=== PATIENT | female | born 1945 | race Caucasian/White ===

== ENCOUNTER → 2023-08-10 13:07 | Outpatient (BNVA) | payer OTHER, SELFPAY | PROVIDERS: PCP Internal Medicine; Visit Provider Psychiatry & Neurology Neurology ==

== ENCOUNTER 2023-12-01 12:22 | Outpatient (AMB) | payer OTHER, SELFPAY ==
--- NOTE | 2023-12-01 12:27 | A.OFFVIS_ITS ---
Vital Signs 12/01/23 12:30 Height 5 ft 7 in Weight 187 lb 8 oz BMI 29.4 BP 130/80 Blood Pressure Location Rt brachial Position Sitting Pulse 65 Pulse Source Pulse Oximeter Pulse Oximetry (%) 96 Oxygen Delivery Method Room Air Intake Visit Reasons: 3m follow up - LVM w/add Intake Note: Patient presents today for a 3 mo fu for cognitive and neurobehavioral dysfunction. Admitting Supervisor Required: No Accompanied by: Significant Other Allergies No Known Allergies Allergy (Verified 12/01/23 12:44) Medication List - Last Reconciled 12/01/23 by Brissa Avelar MD acetaminophen (Tylenol Extra Strength) 500 mg PO Q6H PRN albuterol sulfate 90 mcg/actuation 2 puffs inhalation Q6H PRN ammonium lactate 12% 1 appl topical BID cetirizine (All Day Allergy (cetirizine)) 10 mg PO DAILY PRN fluticasone furoate 50 mcg/actuation inhalation gabapentin 200 mg PO BEDTIME hydralazine 30 mg PO BID lidocaine 1.8% 1 patch topical DAILY metoprolol succinate ER 25 mg PO DAILY HPI Comments Details: 78y/o female with 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 EMG was normal gabapentin is helping her sleep No falls History- In 2006 - she was in ICU after a fall related to alcoholism - found to have mulitple bleeds ? and cognitive issues since then . she says her cogntion is better now. SHe has difficulty remembering her 2006 admission details. she uses a walker - no falls . she reports numbness in michael feet and hands for a few years now.she has stress incontinence intermittently she has some back pain but no radiating pain she comes alone for appointment today so history was not detailed.she live sin an Assisted Living facility at [place]. she neeeds help shower etc. she reports trouble falling asleep and staying asleep. she is not sure if she snores . she takes occasional naps during daytime. she was diagnosed with sleep apnea many years ago but could not use her CPAP. 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 Mother No problems noted. Social History Household Members: Other Housing: Assisted Living Facility Alcohol intake: former Comment: Heavy drinker in the past- hasn't had a drink since 2008 Patient Tobacco Use Status: Former Tobacco user Years Smoked: Quit in 2008 after 10 years of smoking Physical Exam Vital Signs: Last Vital Signs Pulse 65 12/01/23 12:30 BP 130/80 12/01/23 12:30 Pulse Ox 96 12/01/23 12:30 Oxygen Delivery Method Room Air 12/01/23 12:30 BMI result Body Mass Index 29.4 Const General: cooperative, healthy appearing and comfortable Nutritional Appearance: average body habitus Orientation/consciousness: patient oriented x3 Eyes Pupils: Equal, round and reactive pupils present Neuro Other: Mild slurred speech Gait - with walker- normal base and posture, good stride , mild off balance Mild dysesthesias in distal LE General: patient oriented x3, tone normal, moves all extremities and no focal motor deficits Cranial nerves: Yes Facial sensation intact/muscles of mastication intact, Yes Equal, round and reactive pupils present, Yes Bilaterally intact EOM present, Yes Nystagmus not present, Yes Normal facial strength present, Yes Midline tongue present and Yes Symmetric palate elevation present Cognition (Neuro): normal cognition Motor exam (neuro): 5/5 motor strength present throughout and Normal motor mu scle tone present throughout Coordination: [id number] test normal Results Reviewed Results Reviewed: MRI Brain 09/22/23 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
[2023-12-01 12:30] VITALS: BP 130/80; PULSE 65; O2SAT 96; BMI 29.4
== END 2023-12-01 13:06 | disposition home or self-care (01) ==
PROVIDERS: Absent Provider Psychiatry & Neurology Neurology; PCP Internal Medicine; Visit Provider Psychiatry & Neurology Neurology
DX: G31.2 Degeneration of nervous system due to alcohol (principal); F09 Unspecified mental disorder due to known physiological condition; F10.21 Alcohol dependence, in remission; S06.9XAS Unspecified intracranial injury with loss of consciousness status unknown, sequela; R20.0 Anesthesia of skin; R20.2 Paresthesia of skin
CPT/HCPCS: 99214

== ENCOUNTER → 2023-12-01 12:22 | Outpatient (BNVA) | payer OTHER, SELFPAY | PROVIDERS: Absent Provider Psychiatry & Neurology Neurology; PCP Internal Medicine; Visit Provider Psychiatry & Neurology Neurology | DX: G31.89 Other specified degenerative diseases of nervous system (principal); F09 Unspecified mental disorder due to known physiological condition; S06.9XAS Unspecified intracranial injury with loss of consciousness status unknown, sequela; F10.20 Alcohol dependence, uncomplicated; R26.9 Unspecified abnormalities of gait and mobility; R20.0 Anesthesia of skin; R20.2 Paresthesia of skin ==

== ENCOUNTER 2024-06-14 10:13 | Outpatient (AMB) | payer OTHER, SELFPAY ==
--- NOTE | 2024-06-14 10:19 | MHC.OFFVIS ---
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 Falls, Last week R. shoulder, hit her nightstand and fell to the floor couldn't get up and care takers at [place] helped her up, she did not hit her head. 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 EMG was normal Gabapentin is helping her sleep 300mg PO at bedtime will increase to 400mg for leg pain and help regulate sleep History- In 2006 - she was in ICU after a fall related to alcoholism - found to have mulitple bleeds ? and cognitive issues since then . she says her cogntion is better now. SHe has difficulty remembering her 2007 admission details. she uses a walker. she reports numbness in michael feet and hands for a few years now. she has stress incontinence intermittently she has some back pain but no radiating pain she comes alone for appointment today so history was not detailed. she lives in an Assisted Living facility at [place]. she neeeds help shower etc. she reports trouble falling asleep and staying asleep. she is not sure if she snores . she takes occasional naps during daytime. she was diagnosed with sleep apnea many years ago but could not use her CPAP. 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 Mother No problems noted. Social History Household Members: Other Housing: Assisted Living Facility Alcohol intake: former Comment: Heavy drinker in the past- hasn't had a drink since 2009 Patient Tobacco Use Status: Former Tobacco user Years Smoked: Quit in 2009 after 10 years of smoking Review of Systems Const All systems reviewed & are unremarkable except as noted in HPI and below Physical Exam Vital Signs: Last Vital Signs BP 138/80 06/14/24 10:20 BMI result Body Mass Index 30.7 Const General: cooperative, healthy appearing and comfortable Nutritional Appearance: average body habitus Orientation/consciousness: patient oriented x3 Eyes Pupils: Equal, round and reactive pupils present Neuro Other: Mild slurred speech Gait - with walker- normal base and posture, good stride , mild off balance Mild dysesthesias in distal LE General: patient oriented x3, tone normal, moves all extremities and no focal motor deficits Cranial nerves: Yes Facial sensation intact/muscles of mastication intact, Yes Equal, round and reactive pupils present, Yes Bilaterally intact EOM present, Yes Nystagmus not present, Yes Normal facial strength present, Yes Midline tongue present and Yes Symmetric palate elevation present Cognition (Neuro): normal cognition Motor exam (neuro): 5/5 motor strength present throughout and Normal motor muscle tone present throughout Coordination: [id number] test normal Results Reviewed Results Reviewed: MRI NCS Meds : Add Amlodipine 5mg daily Add Chlorthalidone 10mg PO daily Assessment & Plan Assessment & Plan (1) Gait disorder, alcoholic: Code(s): F10.20 - Alcohol dependence, uncomplicated; R26.9 - Unspecified abnormalities of gait and mobility Category: Medical (2) Numbness and tingling of both feet: Comment: ? 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 EMG NCS /LE - normal Increase Gabapentin 300mg to 600mg PO at bedtime daily restless legs and insomnia to help with regulation of sleep. Ask member of her care team at [place] to help with application of RL cream onto her feet as she has difficulty applying it topically. Back pain she uses [place] balm. 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
[2024-06-14 10:20] VITALS: BP 138/80; BMI 30.7
== END 2024-06-14 11:40 | disposition home or self-care (01) ==
PROVIDERS: PCP Internal Medicine; Visit Provider Physician Assistant Medical
DX: F10.288 Alcohol dependence with other alcohol-induced disorder (principal); R26.0 Ataxic gait; S06.9XAS Unspecified intracranial injury with loss of consciousness status unknown, sequela; F06.71 Mild neurocognitive disorder due to known physiological condition with behavioral disturbance; G31.9 Degenerative disease of nervous system, unspecified; F09 Unspecified mental disorder due to known physiological condition; R20.2 Paresthesia of skin; R20.0 Anesthesia of skin; G47.9 Sleep disorder, unspecified
CPT/HCPCS: 99214

== ENCOUNTER → 2024-06-14 10:13 | Outpatient (BNVA) | payer OTHER, SELFPAY | PROVIDERS: PCP Internal Medicine; Visit Provider Physician Assistant Medical ==

== ENCOUNTER 2024-10-18 09:41 | Outpatient (AMB) | payer OTHER, SELFPAY ==
[2024-10-18 09:45] VITALS: BP 128/70; PULSE 70; O2SAT 96; BMI 30.4
--- NOTE | 2024-10-18 09:45 | A.OFFVIS_ITS ---
Vital Signs 10/18/24 09:45 Height 5 ft 7 in Weight 194 lb 4 oz BMI 30.4 BP 128/70 Blood Pressure Location Lt brachial Pulse 70 Pulse Source Pulse Oximeter Pulse Oximetry (%) 96 Oxygen Delivery Method Room Air Intake Visit Reasons: 4 mnts f/u appt - Confirmed Intake Note: patient presents follow up numbness med trial gabapentin. Allergies No Known Allergies Allergy (Verified 10/18/24 09:53) HPI Comments Details: 79 yo female with TBI in 2006 repeated falls, and Ataxia comes for follow up of bilateral LE Neuropathy along with intermittent sleep patterns. She continues to have multiple awakenings at night, most nights she is up at 3am and unable to fall back asleep. Her legs are still bothering her bilaterally, she is unable to apply the lotion on her feet as she can not reach them. She has PT/OT 2x per week. She says her back surgery is pending consultation, and her cognition is worse as she is all over the place and is terrible . No falls since last visit, she ambulates with a rolling walker, is socially active going to [employer] [facility] 2-3pm and does her puzzles daily. She has difficulty with swallowing, she only eats soft foods due to having only top dentures, and 2 molars bottom left, unable to chew any solids, unable to swallow pills, they get stuck despite trying to drink her 20 ounces of lemonade daily. She has diarrhea daily for the past 2 years, and she takes immodium as needed. She has a f/u for the dentist and [facility] [employer] provides transportation. MRi brain 2023- 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 EMG 11/2023 was normal LE no evidence of Neuropathy. History- In 2006 - she was in ICU after a fall related to alcoholism - found to have mulitple bleeds and cognitive issues since then . she says her cognition is better now. SHe has difficulty remembering her 2007 admission details. she uses a walker. she reports numbness in michael feet and hands for a few years now. she has stress incontinence intermittently she has some back pain but no radiating pain she comes alone for appointment today so history was not detailed. she lives in an Assisted Living facility at [facility]. she neeeds help shower etc. she reports trouble falling asleep and staying asleep. she is not sure if she snores . she takes occasional naps during daytime. she was diagnosed with sleep apnea many years ago but could not use her CPAP. 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 Mother No problems noted. Social History Household Members: Other Housing: Assisted Living Facility Alcohol intake: former Comment: Heavy drinker in the past- hasn't had a drink since 2009 Patient Tobacco Use Status: Former Tobacco user Years Smoked: Quit in 2008 after 10 years of smoking Review of Systems Neuro Reports Abnormal speech present Physical Exam Vital Signs: Last Vital Signs Pulse 70 10/18/24 09:45 BP 128/70 10/18/24 09:45 Pulse Ox 96 10/18/24 09:45 Oxygen Delivery Method Room Air 10/18/24 09:45 BMI result Body Mass Index 30.4 Const General: cooperative, healthy appearing and comfortable Nutritional Appearance: average body habitus Orientation/consciousness: patient oriented x3 Eyes Pupils: Equal, round and reactive pupils present Neuro Other: Mild slurred speech - Gait ambulates with walker, normal base stopped posture, good stride , mildly off balance Mild dysesthesias in distal LE Abnormal Oral/ mouth tongue movements noted / due to being edentulous? General: patient oriented x3, tone normal, moves all extremities and no focal motor deficits Cranial nerves: Yes Facial sensation intact/muscles of mastication intact, Yes Equal, round and reactive pupils present, Yes Bilaterally intact EOM present, Yes Nystagmus not present, Yes Normal facial strength present, Yes Midline tongue present and Yes Symmetric palate elevation present Speech: Abnormal speech present and Other speech findings present (Neuro) (slurs her words and is a poor historian) Gait exam (Neuro): Assisted gait required Motor exam (neuro): Normal motor muscle tone present throughout and Abnormal motor strength present Psych Appearance: well kempt Speech and movement: Slurred speech present Attitude: cooperative Insight: Fair insight present (Psych) Results Reviewed Results Reviewed: EMG 09/2023 reviewed with patient MRI 11/2023 Reviewed with patient Vermian Atrophy due to AUD/ TBI? Assessment & Plan Assessment & Plan (1) Sleep disorder: Comment: insomnia worsened by leg tingling Code(s): G47.9 - Sleep disorder, unspecified Category: Medical (2) Intermittent sleepiness: Code(s): R40.0 - Somnolence Category: Medical (3) Forgetfulness: Code(s): R68.89 - Other general symptoms and signs Category: Medical (4) Cognitive decline: Code(s): R41.89 - Other symptoms and signs involving cognitive functions and awareness Category: Medical (5) Dysphagia: Code(s): R13.10 - Dysphagia, unspecified Category: Medical Qualifiers: Dysphagia type: oral phase Qualified Code(s): R13.11 - Dysphagia, oral phase Plan HST Sleep difficulities and continued intermittent sleep. Continue with Melatonin 10mg PO at night and Trazadone 25mg PO at bedtime (PRN). Dysphagia, f/u with your dentist for dentures, eating liquids and soft foods and drinking plenty of water or lemonade may help with swallowing the foods and medications. Neuropathy? RLS/ PLMD EMG is normal and stills has discomfort LE bilaterally continue using Nervine or OTC cream as needed along with Gabapentin 600mg at bedtime. Neuropsyche Evaluation cognitive difficulties. f/u in 4 months Orders: Orders RT home sleep study Today G47.19 - Other hypersomnia Referrals Neuropsychiatry Referral G47.9 - Sleep disorder, unspecified, R40.0 - Somnolence, R41.89 - Other symptoms and signs involving cognitive functions and awareness, R68.89 - Other general symptoms and signs Patient Instructions: Sleep Hygiene provided: set a scheduled bedtime and wake time to help regulate the circadian rhythm and balance the release of pituitary hormones. Sleep in a dark room, temperatures below 68 degrees, and no devices n bed. Limit caffeinated products 6 hours prior to bed, and limit fluids 2-4 hours prior to bed. Gentle night yoga, diffusing essential oils, and playing soft music can be relaxing. Sleep intermittent, increased Melatonin to 10mg PO daily at bedtime, Trazadone PRN and Gabapentin 300mg BID for RLS? PLMD? Neuropathy. OT/PT at [facility] is her therapist 2x a week or more. Neuropscyhe Evaluation for Cognitive Difficulties - poor historian Dentist f/u for dentures. Coding Level of Care Code Est Pt Level 4 (32823) Diagnoses Sleep disorder G47.9 Intermittent sleepiness R40.0 Forgetfulness R68.89 Cognitive decline R41.89 Oral phase dysphagia R13.11 Dysphagia type: oral phase Time Spent (min) 30 Comment Baseline evaluation of sleep
--- OUTSIDE RECORDS SUMMARY | 2024-10-18 10:49 | XMS_ITS | Data Portability ---
Author Organization [place] - [facility], Allergy Address [address] [address] Assessment No assessment recorded. Plan of Treatment Reminders Order Date Submit Date Provider Last Modified By Organization Details Last Modified Time Details Appointments None record ed. Lab None record ed. Referral None record ed. Procedures None record ed. Surgeries None record ed. Imaging None record ed. Medication Orders None record ed. Patient TargetsNo targets recorded. Patient InstructionsNo instructions recorded. Reason for Referral None Reported. Results Created Date Observation Date Name Description Value Unit Range Abnormal Flag Note LastModifiedBy Organization Detail LastModifiedTime 02/23/20 24 05/12/2023 imagi ng/di agnos tic resul t No observ ation record ed. [email or web address] Not Available 20:03:06 02/23/20 24 05/12/2023 imagi ng/di agnos tic resul t No observ ation record ed. [email or web address] Not Available 20:03:16 Result Notes None recorded. Problems Name Problem SNOMED Code Status Onset Date Resolution Date Notes Provider Name and Address Organization Details Recorded Time Sensorine ural hearing loss of bilateral ears 300835301 Active 2022 Sensorineu ral hearing loss, bilateral; Note: Date Diagnosed: 05/12/2023 3:19 PM (H90.3) Not Available [facility] 4 03:17:22 Dysphonia 79547667 Active 2022 Hoarseness ; Note: Date Diagnosed: 05/12/2023 3:19 PM (R49.0) Not Available [facility] 4 03:17:23 Actinic keratosis 148841081 Active 2022 Actinic keratosis; Note: Date Diagnosed: 05/12/2023 3:19 PM (L57.0) Not Available [facility] 4 03:17:23 Complete bilateral paralysis of vocal cords 95026093 Active 2023 Paralysis of vocal cords and larynx, bilateral; Note: Date Diagnosed: 08/13/2023 12:03 PM (J38.02) Not Available [facility] 4 03:17:23 Vocal cord paralysis 664565629 Active 2023 VERONICA SPARKS MD [address] [facility],[place] [address], [place], [address] , [facility] 14:03:24 Problem Notes None recorded. Procedures Surgical History Date Name Laterality Status Provider Name and Address Organization Details Recorded Time 02/07/20 Fiberoptic Laryngoscopy (Comprehensive) completed VERONICA SPARKS MD [address] [facility],[place] [address], [place], [address], [facility] 02/11/2024 14:05:01 Imaging Results Imaging Date Name Status LastModified by Organiz ation Details LastModified Time 05/12/2023 imaging/diag nostic result completed Information not available 02/23/2024 20:03:06 05/12/2023 imaging/diag nostic result completed Information not available 02/23/2024 20:03:16 Procedure Notes None recorded. Medical Equipment None Reported. Allergies Allergen ID Allergen Name Allergen Category Reaction Reaction Severity Criticality Documentation Date Start Date Code Code System Note Provider Name and Address Organization Details Recorded Time 048269 watermelo n preparati on food,medi cation other Not available Not available 11/16/2023 76738 4 RxNorm React ion: Unkno wn; Not Available [facility] 01:24:25 Medications Name Sig Start Date Stop Date Status Note LastModified by Organization Details LastModified Time hydralazine 10 mg tablet Take 1 tablet twice a day by oral route. active Not Available Not Available No t Available gabapentin 100 mg capsule Take 1 capsule 3 times a day by oral route. active Not Available Not Available No t Available Flonase Allergy Relief 50 mcg/actuatio n nasal spray,suspen kay Oracle 1 spray every day by intranasal route. active Not Available Not Available No t Available metoprolol succinate ER 25 mg capsule sprinkle, ext. release 24 hr Take 1 capsule every day by oral route. active Not Available Not Available No t Available albuterol sulf 90 mcg/actuatio n breath activated powder inhaler,sens or Inhale 2 puffs every 4 hours by inhalation route. active Not Available Not Available No t Available Vitals Date Recorded Body height Body mass index (BMI) Body weight Provider Name and Address Organization Details Last Updated DateTime 02/07/2024 170.18 cm 43.9 kg/m2 604580.86 g Ruby Moore [place] - [facility] 02/07/2024 10:51:18 Social History None recorded. Functional Status None recorded. Mental Status None recorded. Family History Nothing Reported. Medical History No medical history recorded. Gynecological HistoryNo gynecological history recorded. Obstetrics History GPAL:G 0 P 0 0 0 0 Past Encounters Encounter ID Performer Location Encounter Start Date Encounter Closed Date Diagnosis/Indication Diagnosis SNOMED-CT Code Diagnosis ICD10 Code Diagnosis Note [id number] VERONICA SPARKS MD [facility] [address] [address] 02/07/2024 10:43:24 02/07/2024 11:08:58 Vocal cord paralysis 705349970 J38.02 78-year-ol d female presents for evaluation of hoarseness . History of bilateral vocal cord paralysis following craniotomy back in 2006. History of trach. Fiber-opti claryngosc opy demonstrat ed bilateral vocal cord paralysis with 3-4 mm airway, no shortness of breath. We will continue to observe. She will follow up in 12 months for repeat FOL, or sooner with concerns. Health Concerns Section Related Observation LastModified by Organization Detai ls LastModified Time None Recorded Concern Status LastModified by Organization Details LastModified Time None Recorded Advance Directives Directive None Recorded Payers Encounter Date Sequence Insurance Name Policy Number Policy Platt Covered Member ID Platt Member ID Guarantor Name 02/07/2024 1 [facility] - [place] - [place] (MEDICARE REPLACEMENT/ ADVANTAGE - HMO) [id number] Notes Date Note Type Note Provider Name and Address Organization Details Recorded Time 02/07/2024 text/html No changes in he alth since her last visit. Now has CLAIRE. PV: 78-year-old female presents for evaluation of hoarseness. She has history of bilateral vocal cord paralysis following craniotomyback in 2006. Had trach and G tube at that time. Patient continues to have long-standing hoarseness. She denies dysphagia or choking episodes.Denies shortness of breath. VERONICA SPARKS MD [address] [place] [address], [phone] - [facility] 02/11/2024 14:05:15 OBGyn Episode No OBEpisode recorded.
--- OUTSIDE RECORDS SUMMARY | 2024-10-18 10:49 | XMS_ITS | Clinical Summary ---
Author Organization [employer] Address [address] [place] [address] [address] [place] [address] Care Team Providers Care Director Of Nursing Name Role Phone Unavailable Primary Care Provider Unavailabl e Allergies Active Allergy Reactions Criticality Noted Date Comments Citrullus Vulgaris Diarrhea 05/02/2024 Medications metoprolol tartrate (Lopressor) 25 MG tablet 3 Active cetirizine (ZyrTEC) 10 MG tablet 3 Active gabapentin (Neurontin) 100 MG capsule Take by mouth. Acti ve hydrALAZINE (Apresoline) 10 MG tablet Take by mouth. Activ e Albuterol Sulfate, sensor, 108 (90 Base) MCG/ACT aerosol powder Inhale 2 puffs every 4 hours by inhalation route. Active simvastatin (Zocor) 40 MG tablet Take 40 mg by mouth. 4 Active Active Problems No known active problems Encounters Date Type Department Care Team Description 09/19/2024 11:30 AM EDT Office Visit [facility] ADULT D[facility] [address] [place] [address] Berenice Anderson from Last 3 Months Social History Tobacco Use Types Packs/Day Years Used Date Smoking Tobacco: Former Cigarettes Smokeless Tobacco: Never Tobacco Cessation:Counseling Given: Not Answered Alcohol Use Standard Drinks/Week Comments Defer 0 (1 standard drink = 0.6 oz pur e alcohol) Comments Unknown Sex and Gender Information Value Date Recorded Sex Assigned at Female 10/25/2023 2:28 PM EDT Legal Sex Female 2:26 PM EDT Gender Identity Female 10/25/2023 2:28 PM EDT Sexual Orientation Straight 10/25/2023 2: 28 PM EDT Last Filed Vital Signs Vital Sign Reading Time Taken Comments Blood Pressure 130/86 05/02/2024 10:43 AM EDT Pulse 60 05/02/2024 10:43 AM EDT Temperature - - Respiratory Rate - - Oxygen Saturation - - Inhaled Oxygen Concentration - - Weight - - Height - - Body Mass Index - - Plan of Treatment Upcoming Encounters Date Type Department Care Team ([facility] st Contact Info) Description 11/15/2024 9:30 AM EDT Office Visit [facility] ADULT DENTAL [address] [place] [address] Nathen Mello, DMD [address] [place] [address] Health Maintenance Due Date Last Done Comments Dental Oral Exam 1945 Dental Prophylaxis 1945 Dental X-Ray: Bitewings 1945 Depression Screening 1945 Lipid Panel 1945 SDOH Screening 1945 Alcohol/Substance Use Screening 1957 Hepatitis C Screening 1963 Zoster Vaccines (1 of 2) 1995 DTaP/Tdap/Td Vaccines (1 - Tdap) 05/24/2018 05/23/2018, 02/07/2007, 02/07/2007 RSV Patients and Patients Aged 60 years or older (1 - 1-dose 75+ series) 2020 COVID-19 Vaccine (2 - season) 2024 07/20/2020 Tobacco Screening 09/19/2025 09/19/2024 Dental X-Ray: Full Mouth 11/26/2026 11/26/2023 Pneumococcal Vaccine: 50+ Years Completed 12/15/2023, 11/15/2017, 08/10/2016 Influenza Vaccine Completed 05/12/2024, , 05/06/2022, Additional history exists HIB Vaccines Aged Out No longer eligi ble based on patient's age to complete this topic HPV Vaccines Aged Out No longer eligi ble based on patient's age to complete this topic Hepatitis A Vaccines Aged Out No long er eligible based on patient's age to complete this topic Hepatitis B Vaccines Aged Out No long er eligible based on patient's age to complete this topic IPV Vaccines Aged Out No longer eligi ble based on patient's age to complete this topic Meningococcal Vaccine Aged Out No tawanna luiz eligible based on patient's age to complete this topic RSV under 20 months Aged Out No longe r eligible based on patient's age to complete this topic Rotavirus Vaccines Aged Out No longer eligible based on patient's age to complete this topic Procedures Procedure Name Priority Date/Time Associated Diagnosis Comments LIMITED ORAL EVALUATION - PROBLEM FOCUSED Routine 09/19/2024 11:30 AM EDT PANORAMIC RADIOGRAPHIC IMAGE Routine 11/26/2023 11:00 AM EDT from Last 3 Months or Most Recently Relevant to Health Maintenance Insurance DENTAL - [facility] [place] [id number]
--- OUTSIDE RECORDS SUMMARY | 2024-10-18 10:49 | XMS_ITS | Continuity of Care Document ---
Author Organization [place] - [facility], DAISY Michelle 1st Floor Address [address] [place] [address] Assessment No assessment recorded. Plan of Treatment Reminders Order Date Submit Date Provider Last Modified By Organization Details Last Modified Time Details Appointments NEW PATIENT 15 2024 09:45A M Xuan Trotter, AUREA Not available Not available Not available Lab None recorded . Referral None recorded . Procedures None recorded . Surgeries None recorded . Imaging XR, hip + pelvis, bilatera l, 2 view - OG HIPS RM 114 2024 025 [email or web address] [facility] Office, [facility] Maykel Foyjeremy, [address], [address], 10/17/2024 13:53:12 Medication Orders None recorded . Patient TargetsNo targets recorded. Patient InstructionsNo instructions recorded. Reason for Referral None Reported. Results Created Date Observation Date Name Description Value Unit Range Abnormal Flag Note LastModifiedBy Organization Detail LastModifiedTime 10/18/1910/17/2024 XR, hip + pelvi s, bilat eral, 2 view http:/ [email or web address] ?Encry pted=s hAaTro YD8dLq bEUv6g %2BXZw aYqtaq 0bqfl% 2Fg9IQ a4ajBk vP9nXo QUaueC m3YtLR FvZlgJ JJ8mAn HZtai3 6q6299 AC0KqY 3uNVqq iKiQtr MwF INTERFACE [facility] [address], [place], [address], 10/17/2024 09:59:10 10/18/1910/17/2024 XR, hip + pelvi s, bilat eral, 2 view http:/ [email or web address] ?Encry pted=s Julien YD8dLq bEUv6g %2BXZw aYqtaq 0bqfl% 2Fg9IQ a4ajBk vP9nXo QUaueC m3YtLR FvZlgJ JJ8mAn HZtai3 4q1423 AC0KqY 3uNVqq iKiQtr MwF INTERFACE [facility] [address], [place], [address], 10/17/2024 09:59:12 Result Notes None recorded. Problems Name Problem SNOMED Code Status Onset Date Resolution Date Notes Provider Name and Address Organization Details Recorded Time Hip pain 01671763 Active 10/18/19 25 Analisa Bermudez [facility] 10/17/2024 09:48:45 Problem Notes None recorded. Procedures Surgical History Date Name Laterality Status Provider Name and Address Organization Details Recorded Time 10/17/2024 [facility] completed Flex Zaldivar PA-C [address] [facility], [place], [address], [facility] 10/17/2024 12:32:05 07/18/2024 [facility] completed Flex Zaldivar PA-C [address] [facility], [place], [address], [facility] 07/18/2024 10:49:01 02/18/2024 [facility] completed Flex Zaldivar PA-C [address] [facility], [place], [address], [facility] 02/18/2024 13:43:23 Imaging Results None recorded. Procedure Notes None recorded. Medical Equipment None Reported. Allergies No known drug allergies Vitals Date Recorded Body height Body mass index (BMI) Body weight Provider Name and Address Organization Details Last Updated DateTime 10/17/2024 170.18 cm 29.8 kg/m2 58376.55 g Analisa Bermudez [facility] 10/17/2024 09:31:34 Social History None recorded. Functional Status None recorded. Mental Status None recorded. Family History Nothing Reported. Medical History No medical history recorded. Gynecological HistoryNo gynecological history recorded. Obstetrics History GPAL:G 0 P 0 0 0 0 Past Encounters Encounter ID Performer Location Encounter Start Date Encounter Closed Date Diagnosis/Indication Diagnosis SNOMED-CT Code Diagnosis ICD10 Code Diagnosis Note [id number] NALDO Esteves [place] [address] [place] [address] 10/17/2024 09:18:58 10/17/2024 12:33:09 Hip pain 63927621 M25.551 M25.552 Primary co xarthrosis, bilateral 526730552 M16.0 Health Concerns Section Related Observation LastModified by Organization Detai ls LastModified Time None Recorded Concern Status LastModified by Organization Details LastModified Time None Recorded Payers None recorded. Notes Date Note Type Note Provider Name and Address Organization Details Recorded Time 10/17/2024 text/html I am seeing the patient today under the supervision of {{Grace Scott* Effie Mo}} who was available but who did not see the patient. HPI: Patient has a known history of left hip osteoarthritis which has been the worst for her. Has also started developing pain in her right hip. Pain located throughout the groin region in both hips. Has done well in the past with previous intra-articular injection into the left hip. Patient requesting injections for both hips today. Also complaining of mid to low back pain. States that the back pain is what causes her most difficulty. Past family, medical, social history and review of systems has been reviewed, updated and is located in the patient? s chart. Examination: The patient is well appearing and in no apparent distress. Alert and oriented x3. Gait is symmetric. No significant swelling warmth or erythema about both hips. Range of motion of the both hips is decreased in all planes. . Peripheral, vascular, lymphatic examination, skin, neurological, coordination, reflexes, sensation are within normal limits. 2 views of the bilateral hips obtained and independently reviewed in the office today, left hip reveals significant joint space narrowing superiorly with evidence of subchondral sclerosis as well as osteophyte formation. Right hip does have joint space narrowing with osteophyte formation as well as subchondral sclerosis. There is calcification noted over both greater trochanters. No fracture. Impression: Osteoarthritis of both hips Plan: Reviewed diagnosis with the patient today in the office. We discussed the patient's options. We discussed the risks, options, benefits In regards toa total hip arthroplasty. We discussed the surgery itself and rehabilitation process. We discussed conservative management. Activity modification discussed. P.r.n. NSAIDs can use. We discussed the risks associated with NSAID use. I injected 40 mg of Kenalog and 2 cc of 1% lidocaine into the left hip joint using the ultrasound-guided technique under sterile conditions. The patient tolerated the injection well. Patient provided with a follow-up appointment with one of our spine providers. Will continue to monitor her symptoms for her left hip and follow-up as needed for continued injection treatment. Flex Zaldivar PA-C [address] [facility] [address], [place], [address], [facility] - [facility] 10/17/2024 12:33:09 OBGyn Episode No OBEpisode recorded.
--- OUTSIDE RECORDS SUMMARY | 2024-10-18 10:49 | XMS_ITS | Clinical Summary ---
Author Organization [facility] Address [address] [place] [address] Care Team Providers Care Senior Integration Architect Name Role Phone Unavailable Primary Care Provider Unavailabl e Source Comments PLEASE NOTE, if this patient is a minor, it may be UNLAWFUL to discuss sensitive information that is contained in these records (such as FAMILY PLANNING, MENTAL HEALTH or SUBSTANCE ABUSE) with the minor patient's parent or other person without the patient's specific authorization.[facility] Medications No known medications Active Problems No known active problems Social History Tobacco Use Types Packs/Day Years Used Date Smoking Tobacco: Never Assessed Social Connections Answer Date Recorded Connectedness 0 03/19/2024 Financial Resource Strain Answer Date R ecorded Financial Resource Strain 0 2022 Stress Answer Date Recorded Stress 0 05/12/2023 Physical Activity Answer Date Recorded Physical Activity 0 05/12/2023 Food Insecurity Answer Date Recorded Food 0 03/30/2024 Transportation Needs Answer Date Record ed Transportation 0 05/12/2023 Housing Stability Answer Date Recorded Housing 0 05/12/2023 Safety and Environment Answer Date Carl rded Safety 0 05/12/2023 Utilities Answer Date Recorded Utilities 0 05/12/2023 Employment Answer Date Recorded Stress 0 03/19/2024 Comments Unknown Sex and Gender Information Value Date Recorded Sex Assigned at Not on file Legal Sex Female 10:45 AM PDT Gender Identity Not on file Sexual Orientation Not on file Last Filed Vital Signs Vital Sign Reading Time Taken Comments Blood Pressure 151/79 08/26/2023 10:36 AM EST Pulse 64 08/26/2023 10:36 AM EST Temperature - - Respiratory Rate - - Oxygen Saturation - - Inhaled Oxygen Concentration - - Weight - - Height - - Body Mass Index - - Plan of Treatment Health Maintenance Due Date Last Done Comments Dental FMX/Pano 1945 Dental Perio Charting 1945 Dental Prophy 1945 Hepatitis C Screening 1945 Tobacco Screening 1945 Imm-DTaP/Tdap/Td (1 - Tdap) 1964 Imm-Pneumococcal 65+ (1 of 1 - PCV) 1995 Imm-Zoster, Recombinant (1 of 2) 1995 Bone Density Screening 2010 Falls Prevention 2010 Emu-RMZTA-07 (1 - 2023- season) 2024 Imm-Influenza (#1) 2024 Alcohol and Drug Screen 07/05/2024 Depression Annual Screen 07/05/2024 Dental Examination 07/28/2024 07/26/2023 Hypertension Screening (#1) 08/25/2024 Procedures Procedure Name Priority Date/Time Associated Diagnosis Comments COMP ORAL EVALUATION - NEW/ESTABLISHED PATIENT Routine 07/26/2023 11:00 AM EST Caries from Last 3 Months or Most Recently Relevant to Health Maintenance Insurance GENERIC - DENTAL Member Subscriber Plan / Payer (Ef fective 2023-Present) Name:Hannah Lane Member ID:[id number] Relation to Subscriber:Self Name:Hannah Lane Subscriber ID:[id number] Payer ID:[id number] Group ID:Not on file Type:Indemnity Address: [facility] [address] [address] [place] [address]
--- OUTSIDE RECORDS SUMMARY | 2024-10-18 10:49 | XMS_ITS | Clinical Summary ---
Author Organization [facility] Address [address] [place] [address] Care Team Providers Care Hydraulic Jack Operator Name Role Phone Cristian Rivera MD Primary Care Provider [phone] Surgical History Surgery Date Site/Laterality Comments OTHER SURGICAL HISTORY 2008 PROCEDURE: MO STRTCTC IMPLTJ NSTIM ELTRD W/O RECORD 1ST ARRAY; COMMENT: decrompression for traumatic brain injury COLONOSCOPY 10/16/13 PROCEDURE: HISTORICAL COLONOSCOPY; COMMENT: normal; base of cecum not reached; repeat in 5 yrs under propofol Medical History Medical History Date Comments HTN (hypertension) DX:HTN (hyper tension) Depression DX:Depression Hypercholesterolemia DX:Hypercho lesterolemia Osteoporosis DX:Osteoporosis Traumatic brain injury (CMS/ HCC V24, CMS/HCC V28) DX:Traumatic brain injury (H CC); COMMENT: fall from stair, hitting head on concrete, 2008. went through rehab in [place] since. Prediabetes 07/21/2020 DX:Prediabetes; COMMENT: 04/20 A1C 6.1 Family History Medical History Relation Name Comments Other cancer Brother lymphoma, of Hypertension Father Stroke Father Breast cancer Maternal Grandmother Myelodysplastic syndrome Mother Other: no DM Other Relation Name Status Comments Brother Father Other Maternal Grandmother Mother Other Social History Tobacco Use Types Packs/Day Years Used Date Smoking Tobacco: Former Cigarettes Q uit: 06/09/2009 Smokeless Tobacco: Never Alcohol Use Standard Drinks/Week Comments No 0 (1 standard drink = 0.6 oz pur e alcohol) Comments Unknown Sex and Gender Information Value Date Recorded Sex Assigned at Not on file Legal Sex Female 12:16 PM EST Gender Identity Not on file Sexual Orientation Not on file Obstetrics History Last Filed Vital Signs Vital Sign Reading Time Taken Comments Blood Pressure 131/62 01/22/2023 10:26 AM EDT Pulse 66 01/22/2023 10:26 AM EDT Temperature - - Respiratory Rate - - Oxygen Saturation - - Inhaled Oxygen Concentration - - Weight 91.5 kg (201 lb 12.8 oz) 023 10:26 AM EDT Height 170.2 cm (5' 7 ) 01/22/2023 10:2 6 AM EDT Body Mass Index 31.61 01/22/2023 10:26 AM EDT Plan of Treatment Health Maintenance Due Date Last Done Comments Zoster Vaccines (1 of 2) 1995 RSV Immunization Adult Patients (1 - 1-dose 75+ series) 2020 Cholesterol Screening (Lipid Panel) 06/13/2022 Colorectal Cancer Screening: Colonoscopy 06/13/2022 Depression Screening 06/13/2022 Falls Risk Assessment 06/13/2022 Hepatitis C Screening 06/13/2022 Medicare Annual Wellness Visit 06/13/2022 Social Influencers of Health Screening 06/13/2022 Hypertension/CHF/CAD Annual BMP Blood Test 06/14/2022 Osteoporosis Screening (Bone Density Screening) 04/05/2023 04/05/2018 COVID-19 Vaccine ( season) 2024 07/20/2020 Influenza Vaccine (Season Ended) 2025 05/06/2022, 04/17/2021, 04/09/2021, Additional history exists DTaP,Tdap,and Td Vaccines (3 - Td or Tdap) 05/23/2028 05/23/2018, 02/07/2007 Pneumococcal Vaccine: 50+ Years Completed 11/15/2017, 08/10/2016 HIB Vaccines Aged Out No longer eligi [...] on patient's age to complete this topic MMR Vaccines Aged Out No longer eligi ble based on patient's age to complete this topic Meningococcal ACWY Vaccine Aged Out N o longer eligible based on patient's age to complete this topic Meningococcal B Vaccine Aged Out No l onger eligible based on patient's age to complete this topic RSV Immunization Patients Under 20 months Aged Out No longer eligible based on patient's age to complete this topic Varicella Vaccines Aged Out No longer eligible based on patient's age to complete this topic Procedures Procedure Name Priority Date/Time Associated Diagnosis Comments DXA BONE DENSITY STUDY 1+ SITS AXIAL SKEL Routine 04/05/2018 3:05 PM EDT Age-related osteoporosis without current pathological fracture from Last 3 Months or Most Recently Relevant to Health Maintenance Results * DXA BONE DENSITY STUDY 1+ SITS AXIAL SKEL (04/05/2018 3:05 PM EDT) Anatomical Region Laterality Modality Bone Densitometr y 11/15/2017 1:16 PM EDT Narrative 04/05/2018 5:55 PM EDT BONE DENSITY ? Lumbar Spine T-score is +0.9 ?? (SD relative to 20-29 y/o adult) Z-score is +3.3 ??(SD relative to age matched peers) This is normal by criteria defined by the WHO. Left Hip T-score is +0.7 Z-score is +2.4 This is normal by criteria defined by the WHO. Impression: Based on the World Health Organization criteria, Hannah Lane should be classified as having normal bone density. The [facility] Department of Internal Medicine recommends using National Osteoporosis Foundation (NOF) guidelines in treatment decisions related to osteoporosis. NOF guidelines suggest considering treatment for postmenopausal women and men aged 50 or older presenting with the following: History of hip or vertebral fracture. T-score less than or equal to -2.5 (DXA) at the femoral neck, total hip, or spine, after appropriate evaluation to exclude secondary causes. Low bone mass (T-score between -1.0 and -2.5 at the femoral neck or spine) AND a 10-year probability of a hip fracture greater than or equal to 3% OR a 10-year probability of a major osteoporosis-related fracture greater than or equal to 20% based on the [place]-adapted WHO algorithm Please note that all treatment decisions require clinical judgment and consideration of individual patient factors, including patient preferences, co-morbidities, previous drug use, risk factors not captured in the FRAX model (e.g., frailty, falls, vitamin D deficiency, increased bone turnover, interval significant decline in bone density) and possible under- or over-estimation of fracture risk by FRAX. Procedure Note Frieda Sharma MD - 06/23/2022 BONE DENSITY Lumbar Spine T-score is +0.9 (SD relative to 20-29 y/o adult) Z-score is +3.3 (SD relative to age matched peers) This is normal by criteria defined by the WHO. Left Hip T-score is +0.7 Z-score is +2.4 This is normal by criteria defined by the WHO. Impression: Based on the World Health Organization criteria, Hannah [address] should beclassified as having normal bone density. The [facility] Department of Internal Medicine recommendsusing National Osteoporosis Foundation (NOF) guidelines in treatmentdecisions related to osteoporosis. NOF guidelines suggest consideringtreatment for postmenopausal women and men aged 50 or older presentingwith the following: History of hip or vertebral fracture. T-score less than or equal to -2.5 (DXA) at the femoral neck, total hip,or spine, after appropriate evaluation to exclude secondary causes. Low bone mass (T-score between -1.0 and -2.5 at the femoral neck or spine)AND a 10-year probability of a hip fracture greater than or equal to 3% ORa 10-year probability of a major osteoporosis-related fracture greaterthan or equal to 20% based on the [place]-adapted WHO algorithm Please note that all treatment decisions require clinical judgment andconsideration of individual patient factors, including patientpreferences, co-morbidities, previous drug use, risk factors not capturedin the FRAX model (e.g., frailty, falls, vitamin D deficiency, increasedbone turnover, interval significant decline in bone density) and possibleunder- or over-estimation of fracture risk by FRAX. Cleveland Parikh MD IMG DXA PROCEDURES Final Resul t from Last 3 Months or Most Recently Relevant to Health Maintenance Advance Directives Documents on File Type Date Recorded Patient Corrosion Engineer Expl anation Health Care Decision (hx) 05/15/2020 AD MELGOZA DIRECTIVE Health Care Decision (hx) 05/15/2020 AD MELGOZA DIRECTIVE Health Care Decision (hx) 05/15/2020 AD MELGOZA DIRECTIVE Health Care Decision (hx) 05/15/2020 AD MELGOZA DIRECTIVE Health Care Decision (hx) 05/15/2020 AD MELGOZA DIRECTIVE Care Teams Hydraulic Jack Operator Relationship Specialty Start Date End Date Cristian Rivera MD PCP - General Internal Medicine 03/21/21
== END 2024-10-18 10:49 | disposition home or self-care (01) ==
LOC: HO.HSMS 09:41
PROVIDERS: PCP Internal Medicine; Visit Provider Physician Assistant Medical
DX: G47.9 Sleep disorder, unspecified (principal); R40.0 Somnolence; R68.89 Other general symptoms and signs; R41.89 Other symptoms and signs involving cognitive functions and awareness; R13.11 Dysphagia, oral phase
CPT/HCPCS: 99214

== ENCOUNTER → 2024-10-18 09:41 | Outpatient (BNVA) | payer OTHER, SELFPAY | PROVIDERS: PCP Internal Medicine; Visit Provider Physician Assistant Medical ==

== ENCOUNTER 2025-04-09 09:42 | Outpatient (AMB) | payer OTHER, SELFPAY ==
--- OUTSIDE RECORDS SUMMARY | 2025-04-05 12:40 | XMS_ITS | Encounter Summary ---
Author Organization [facility] Address [address] [place] [address] Care Team Providers Care Sex Crimes Detective Name Role Phone Ollie Walter MD Primary Care Provider [phone] Reason for Referral * Imaging (Routine) - Pending Review Specialty Diagnoses / Procedures Referred By Satnam oropeza Referred To Contact Cardiology Diagnoses Atrial fibrillation, unspecified type (CMS/HCC V24, CMS/HCC V28) Procedures Transthoracic echocardiogram (TTE) complete with PRN contrast, bubble, strain, and 3D order panel AK TTE W 2D IMAGE COMPLETE W DOPPLER ECHO & COLOR FLOW DOPPLER ECHO AK LEWIS 2D COMPLETE W/CONTRAST OR W & WO CONTRAST WITH DOPPLER Devorah Tejada NP [address] [place] [address] [address] [place] [address] Phone: tel: fax: [facility] Referral ID Status Reason Start Date Expiration Date V isits Requested Visits Authorized [id number] Pending Review 04/05/2025 04/05/2026 1 1 Reason for Visit * Reason Comments Follow-up * Other Medical (Routine) - Closed Specialty Diagnoses / Procedures Referred By Satnam oropeza Referred To Contact Cardiology Diagnoses [HFU d/c 02/02/25 [facility], Dx: Afib, HTN, consult 01/31/25 w/LC/RAPHAEL, RAPHAEL/LSO pt] [03/14/25..[facility] 03/14/25 because Devorah is in testing...spoke with Pattie at [facility] at [phone]..arie] 02/05/25 bkd w/pt, ltr [facility]ld-[facility] FOLLOW UP Supa Landeros MD [address] [place] [address] Phone: tel: fax: [facility] Cardiology [facility] [address] [place] [address] Phone: tel: fax: Referral ID Status Reason Start Date Expiration Date Visits Re quested Visits Authorized [id number] Closed 03/29/2025 04/12/2025 1 1 Encounter Details Date Type Department Care Team (Late st Contact Info) Description 04/05/2025 12:40 PM EDT [place] [facility] [place] [facility] [address] [place] [address] Devorah Tejada NP [address] [place] [address] [address] [place] [address] Atrial fibrillation, unspecified type (CMS/HCC V24, CMS/HCC V28) (Primary Dx); Hypertension, unspecified type Social History Tobacco Use Types Packs/Day Years Used Date Smoking Tobacco: Former Cigarettes Q uit: 06/09/2009 Smokeless Tobacco: Never Tobacco Cessation:Counseling Given: Not Answered Alcohol Use Standard Drinks/Week Comments No 0 (1 standard drink = 0.6 oz pur e alcohol) Comments Unknown Sex and Gender Information Value Date Recorded Sex Assigned at Not on file Legal Sex Female 12:16 PM EST Gender Identity Not on file Sexual Orientation Not on file documented as of this encounter Last Filed Vital Signs Vital Sign Reading Time Taken Comments Blood Pressure 130/74 04/05/2025 12:56 PM EDT Pulse 58 04/05/2025 12:56 PM EDT Temperature - - Respiratory Rate - - Oxygen Saturation 97% 04/05/2025 12:56 PM EDT Inhaled Oxygen Concentration - - Weight 83.9 kg (185 lb) 04/05/2025 12:56 PM EDT Height 170.2 cm (5' 7 ) 04/05/2025 12:56 PM EDT Body Mass Index 28.98 04/05/2025 12:56 PM EDT documented in this encounter Progress Notes * Devorah Tejada, TEACHER VOCAL - 04/05/2025 12:40 PM EDT Images from the original note were not included. [facility] PRIMARY VB DEVELOPER: Moe Borden MD PCP: Ollie Walter MD HPI: Hannah Lane is a 79 y.o. 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 During this hospitalization she was found to have paroxysmalatrial fibrillation. She returned to a normal rhythm after her beta-danny was resumed. She was started on Eliquis 5 mg twice daily. Echocardiogram is from 02/2023 revealing normal LVEF 55 to 60%, no wall motion abnormalities, grade 1 diastolic dysfunction, normal biatrial size, without hemodynamically significant valve disease, but elevated PASP 40-45 mmHg. An echocardiogram was completed during the hospitalization on 01/31/2025. The LV was poorly visualized. LV wall thickness mildly increased, LV systolic function probably normal-unable to assess LVEF or wall motion. Grade 1 diastolic dysfunction. Aortic valve poorly visualized. RV poorly visualized. PASP 45 to 50 mmHg. She presents today for hospital follow-up. She lives in assisted living facility. She reports she is doing well and has no cardiac complaints. She denies chest pain, shortness of breath, palpitations, dizziness, lightheadedness, presyncope or syncope. She denies peripheral edema, orthopnea or PND. She is taking Eliquis and tolerating it well with no abnormal bleeding noted. ACTIVE MEDICATIONS: Medications Taking[1] PAST MEDICAL HISTORY: Problem List[2] ALLERGIES: Allergies[3] SOCIAL HISTORY: Social History Tobacco Use Smoking status: Former Current packs/day: 0.00 Types: Cigarettes Quit date: 06/09/2009 Years since quittin.8 Smokeless tobacco: Never Substance Use Topics Alcohol use: No PHYSICAL EXAM: Vitals: 04/05/25 1256 BP: 130/74 BP Location: Left arm Patient Position: Sitting BP Cuff Size: Adult Pulse: 58 SpO2: 97% Weight: 83.9 kg (185 lb) Height: 1.702 m (67 ) Physical Exam Constitutional: General: She is not in acute distress. Appearance: She is well-developed. She is not diaphoretic. HENT: Head: Normocephalic. Eyes: Pupils: Pupils are equal, round, and reactive to light. Neck: Vascular: No carotid bruit, hepatojugular reflux or JVD. Cardiovascular: Rate and Rhythm: Normal rate and regular rhythm. Pulses: Normal pulses and intact distal pulses. Heart sounds: Normal heart sounds, S1 normal and S2 normal. No murmur heard. Pulmonary: Effort: Pulmonary effort is normal. Breath sounds: Normal breath sounds. No wheezing, rhonchi or rales. Chest: Chest wall: No tenderness. Abdominal: General: Bowel sounds are normal. There is no distension. Palpations: Abdomen is soft. Tenderness: There is no abdominal tenderness. Musculoskeletal: General: No deformity. Right lower leg: No edema. Left lower leg: No edema. Skin: General: Skin is warm and dry. Neurological: Mental Status: She is alert and oriented to person, place, and time. Psychiatric: Attention and Perception: Attention normal. Mood and Affect: Mood normal. Speech: Speech normal. EKG: TESTING: Lab Results Component Value Date GLUCOSE 69 (L) 02/26/2025 CALCIUM 8.6 02/26/2025 NA 138 02/26/2025 K 3.5 02/26/2025 CO2 33 (H) 02/26/2025 CL 96 02/26/2025 BUN 14 02/26/2025 CREATININE 1.09 02/26/2025 ASSESSMENT/PLAN: Assessment & Plan Atrial fibrillation, unspecified type (CMS/HCC V24, CMS/HCC V28) Patient with history of paroxysmal atrial fibrillation. ECG today showing sinus bradycardia. She continues on metoprolol for rate control. She continues on Eliquis 5 mg twice daily for stroke risk reduction. Her [id number] or is 4. She denies palpitations, chest discomfort, dizziness, lightheadedness. Will update echo as LV was poorly visualized during previous echo. Echo from 2020 shows a mildly dilated aorta so will re-assess this as well. Orders: ECG 12 lead Transthoracic echocardiogram (TTE) complete with PRN contrast, bubble, strain, and 3D order panel; Future perflutren lipid microsphere (DEFINITY) 1.3 mL in sodium chloride 0.9% 8.7 mL injection Hypertension, unspecified type Blood pressure is well-controlled, continue on current antihypertensive medication regimen. Thank you for allowing us to participate in the care of this patient. The patient will follow up in6 months, sooner PRN. As per AHA guidelines and previously established plan of care by Dr. Moe Borden MD, we discussed the following today: 1. Atrial fibrillation, unspecified type (CMS/HCC V24, CMS/HCC V28) 2. Hypertension, unspecified type [facility] [1] Outpatient Medications Marked as Taking for the 04/05/25 encounter (Office Visit) with Devorah Tejada NP Medication Sig Dispense Refill acetaminophen (TYLENOL) 500 mg tablet Take by mouth every 6 (six) hours if needed for mild pain. albuterol HFA (PROAIR HFA ; PROVENTIL HFA ; VENTOLIN HFA) 90 mcg/actuation inhaler Inhale 2 puffs by mouth every 6 (six) hours if needed for wheezing. amLODIPine (NORVASC) 5 mg tablet Take by mouth 1 (one) time each day. apixaban (ELIQUIS) 5 mg tablet Take 1 tablet (5 mg total) by mouth 2 (two) times a day. calcium carbonate-vitamin D 500 mg-5 mcg (200 unit) per tablet Take 1 tablet by mouth 1 (one) time each day. chlorthalidone (HYGROTON) 25 mg tablet Take by mouth 1 (one) time each day. gabapentin (NEURONTIN) 300 mg capsule Take 1 capsule (300 mg total) by mouth 3 (three) times a day. hydrALAZINE (APRESOLINE) 10 mg tablet Take by mouth 3 (three) times a day. metoprolol succinate (TOPROL-XL) 25 mg 24 hr tablet Take 1 tablet (25 mg total) by mouth 1 (one) time each day. Do not crush or chew. metoprolol succinate (TOPROL-XL) 25 mg 24 hr tablet Take 1 tablet (25 mg total) by mouth 1 (one) time each day. Do not crush or chew. pravastatin (PRAVACHOL) 20 mg tablet Take 1 tablet (20 mg total) by mouth 1 (one) time each day. pravastatin (PRAVACHOL) 20 mg tablet Take 1 tablet (20 mg total) by mouth at bedtime. traZODone (DESYREL) 50 mg tablet Take 1.5 tablets (75 mg total) by mouth at bedtime. [2] Patient Active Problem List Diagnosis TBI (traumatic brain injury) (CMS/HCC V24, CMS/HCC V28) Sinus tachycardia Paroxysmal atrial flutter (CMS/HCC V24, CMS/HCC V28) [3] No Known Allergies Cosigned by Con Merritt MD at 04/07/2025 11:21 AM EDT documented in this encounter Plan of Treatment Upcoming Encounters Date Type Department Care Team (Late st Contact Info) Description 07/17/2025 1:30 PM EST Ancillary Procedure [facility] [address] [place] [address] Scheduled Orders Name Type Priority Associated Diagnoses Order Schedule Transthoracic echocardiogram (TTE) complete with PRN contrast, bubble, strain, and 3D order panel Echocardiography Routine Atrial fibrillation, unspecified type (CMS/HCC V24, CMS/HCC V28) 1 Occurrences starting 04/05/2025 until 04/05/2026 documented as of this encounter Procedures Procedure Name Priority Date/Time Associated Diagnosis Comments ECG 12-LEAD Routine 04/05/2025 1:23 PM EDT Atrial fibrillation, unspecified type (CMS/HCC V24, CMS/HCC V28) documented in this encounter Results * ECG 12 lead (04/05/2025 1:23 PM EDT) Ventricular Rate ECG 58 BPM GEMUSE Atrial Rate 58 BPM GEMUSE P-R Interval 134 ms GEMUSE QRS Duration 96 ms GEMUSE Q-T Interval 452 ms GEMUSE QTc 443 ms GEMUSE P Wave [place] 72 degrees GEMUSE R [place] 52 degrees GEMUSE T [place] -175 degrees GEMUSE ECG Interpretation Sinus bradycardia Incomplete right bundle branch block Cannot rule out Anterior infarct , age undetermined T wave abnormality, consider inferolateral ischemia Abnormal ECG When compared with ECG of 11-APR-2021 16:38, ST no longer depressed in Anterior leads T wave inversion now evident in Inferior leads T wave inversion less evident in Anterolateral leads Confirmed by CON MERRITT ([id number]) on 04/09/2025 8:57:56 AM GEMUSE 04/05/2025 1:01 PM EDT 04/09/2025 8:57 AM EDT us Devorah Tejada NP ECG ORDERABLES Edited Result - Final GEMUSE documented in this encounter Visit Diagnoses Diagnosis Atrial fibrillation, unspecified type (CMS/HCC V24, CMS/HCC V28)- Primary Hypertension, unspecified type documented in this encounter Discontinued Medications Medication Sig Discontinue Reason Start Date End Da te metoprolol succinate (TOPROL-XL) 25 mg 24 hr tablet Take 1 tablet (25 mg total) by mouth 1 (one) time each day. Do not crush or chew. Entered in Error 04/06/2025 documented as of this encounter Historical Medications * This list may reflect changes made after this encounter. apixaban (ELIQUIS) 5 mg tablet Take 1 tablet (5 mg total) by mouth 2 (two) times a day. chlorthalidone (HYGROTON) 25 mg tablet Take by mouth 1 (one) time each day. hydrALAZINE (APRESOLINE) 10 mg tablet Take by mouth 3 (three) times a day. metoprolol succinate (TOPROL-XL) 25 mg 24 hr tablet Take 1 tablet (25 mg total) by mouth 1 (one) time each day. Do not crush or chew. amLODIPine (NORVASC) 5 mg tablet Take by mouth 1 (one) time each day. pravastatin (PRAVACHOL) 20 mg tablet Take 1 tablet (20 mg total) by mouth at bedtime. calcium carbonate-vitamin D 500 mg-5 mcg (200 unit) per tablet Take 1 tablet by mouth 1 (one) time each day. traZODone (DESYREL) 50 mg tablet Take 1.5 tablets (75 mg total) by mouth at bedtime. albuterol HFA (PROAIR HFA ; PROVENTIL HFA ; VENTOLIN HFA) 90 mcg/actuation inhaler Inhale 2 puffs by mouth every 6 (six) hours if needed for wheezing. gabapentin (NEURONTIN) 300 mg capsule Take 1 capsule (300 mg total) by mouth 3 (three) times a day. acetaminophen (TYLENOL) 500 mg tablet Take by mouth every 6 (six) hours if needed for mild pain. added in this encounter Care Teams Sex Crimes Detective Relationship Specialty Start Date End Date Ollie Walter MD [address] [place] [address] [address] [place] [address] PCP - General Geriatric Medicine 03/02/25 documented as of this encounter
--- NOTE | 2025-04-09 09:44 | MHC.OFFVIS ---
Vital Signs 04/09/25 09:45 Height 5 ft 7 in Weight 184 lb 6 oz BMI 28.9 BP 124/74 Blood Pressure Location Lt brachial Position Sitting Pulse 64 Pulse Source Pulse Oximeter Pulse Oximetry (%) 93 Oxygen Delivery Method Room Air Intake Visit Reasons: 4 mnts f/u appt - Confirmed Intake Note: Patient presents follow up Sleep. Patient Declined HST. Accompanied by: Self / Same As Patient Allergies No Known Allergies Allergy (Verified 04/09/25 09:48) HPI Comments Details: 79 yo female with h/o TBI in 2006 and repeated falls, and Ataxia comes for a follow up of bilateral LE Neuropathy along with intermittent sleep patterns. She continues to have multiple awakenings at night, most nights she is up at 3am and unable to fall back asleep. Her legs are uncomfortable with pain bilaterally. She is unable to apply the lotion on her feet as she can not reach them. She has l sided neck pain and her l. hip throbs with pain. She says her cognition is worse as she is all over the place and is terrible . She has PT/OT 2x per week due to ongoing gait instability.Denies falls since her last visit, she ambulates with a rolling walker. Socially [facility] and does her puzzles daily. She has difficulty with swallowing, she only eats soft foods due to having only top dentures, and 2 molars on bottom left, unable to chew any solids, unable to swallow pills, they get stuck despite trying to drink her 20 ounces of lemonade daily. She has diarrhea daily for the past 2 years, and she takes immodium as needed. She has a f/u for the dentist and [employer] provides transportation. History- In 2006 - she was in ICU after a fall related to alcoholism - found to have mulitple bleeds and cognitive issues since then . she says her cognition is better now. SHe has difficulty remembering her 2007 admission details. she uses a walker. she reports numbness in michael feet and hands for a few years now. she has stress incontinence intermittently she has some back pain but no radiating pain she comes alone for appointment today so history was not detailed. she lives in an Assisted Living facility at [place]. she needs help shower etc. she reports trouble falling asleep and staying asleep. she is not sure if she snores . she takes occasional naps during daytime. she was diagnosed with sleep apnea many years ago but could not use her CPAP. 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 Mother No problems noted. Social History Household Members: Other Housing: Assisted Living Facility Alcohol intake: former Comment: Heavy drinker in the past- hasn't had a drink since 2009 Patient Tobacco Use Status: Former Tobacco user Years Smoked: Quit in 2008 after 10 years of smoking Review of Systems Neuro Reports Abnormal speech present Physical Exam Vital Signs: Last Vital Signs Pulse 64 04/09/25 09:45 BP 124/74 04/09/25 09:45 Pulse Ox 93 04/09/25 09:45 Oxygen Delivery Method Room Air 04/09/25 09:45 BMI result Body Mass Index 28.9 Const General: cooperative, healthy appearing and comfortable Nutritional Appearance: average body habitus Orientation/consciousness: patient oriented x3 Eyes Pupils: Equal, round and reactive pupils present Neuro Other: Mild slurred speech - Gait ambulates with walker, normal base stopped posture, good stride , mildly off balance Mild dysesthesias in distal LE Abnormal Oral/ mouth tongue movements noted / due to being edentulous? General: patient oriented x3, tone normal, moves all extremities and no focal motor deficits Cranial nerves: Yes Facial sensation intact/muscles of mastication intact, Yes Equal, round and reactive pupils present, Yes Bilaterally intact EOM present, Yes Nystagmus not present, Yes Normal facial strength present, Yes Midline tongue present and Yes Symmetric palate elevation present Speech: Abnormal speech present and Other speech findings present (Neuro) (slurs her words and is a poor historian) Gait exam (Neuro): Assisted gait required Motor exam (neuro): Normal motor muscle tone present throughout and Abnormal motor strength present Psych Appearance: well kempt Speech and movement: Slurred speech present Attitude: cooperative Insight: Fair insight present (Psych) Results Reviewed Results Reviewed: MRi brain 2023- 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 EMG 11/2023 was normal LE no evidence of Neuropathy. Assessment & Plan Assessment & Plan (1) Excessive daytime sleepiness: Code(s): G47.19 - Other hypersomnia Category: Medical (2) Sleep disorder: Comment: insomnia worsened by leg tingling Code(s): G47.9 - Sleep disorder, unspecified Category: Medical (3) Intermittent sleepiness: Code(s): R40.0 - Somnolence Category: Medical (4) Forgetfulness: Code(s): R68.89 - Other general symptoms and signs Category: Medical (5) Cognitive decline: Code(s): R41.89 - Other symptoms and signs involving cognitive functions and awareness Category: Medical (6) Dysphagia: Code(s): R13.10 - Dysphagia, unspecified Category: Medical Qualifiers: Dysphagia type: oral phase Qualified Code(s): R13.11 - Dysphagia, oral phase (7) Gait disorder, alcoholic: Code(s): F10.20 - Alcohol dependence, uncomplicated; R26.9 - Unspecified abnormalities of gait and mobility Category: Medical Plan PSG to r/o BORIS Fragmented sleep continue Melatonin 10mg PO at night and Trazadone 25mg PO at bedtime (PRN). Dysphagia, f/u with your dentist for dentures, eating liquids and soft foods and drinking plenty of water or lemonade may help with swallowing the foods and medications. Go to the dentist for dentures. Neuropathy? RLS/ PLMD EMG is normal and stills has discomfort LE bilaterally continue using Nervine or OTC cream as needed along with Gabapentin 600mg at bedtime. Cognitive decline continue to go to bingo, do puzzles and engage in meaningful social events, call the boys and have dinner with them. Balance and gait instability continue PT 2-3x per week. Neuropsyche Evaluation cognitive difficulties. f/u in 3 months Orders: Orders RT PSG in-lab sleep study Today G47.19 - Other hypersomnia Patient Instructions: Sleep Hygiene provided: set a scheduled bedtime and wake time to help regulate the circadian rhythm and balance the release of pituitary hormones. Sleep in a dark room, temperatures below 68 degrees, and no devices n bed. Limit caffeinated products 6 hours prior to bed, and limit fluids 2-4 hours prior to bed. Gentle night yoga, diffusing essential oils, and playing soft music can be relaxing. Coding Level of Care Code Est Pt Level 4 (18838) Diagnoses Excessive daytime sleepiness G47.19 Sleep disorder G47.9 Intermittent sleepiness R40.0 Forgetfulness R68.89 Cognitive decline R41.89 Oral phase dysphagia R13.11 Dysphagia type: oral phase Gait disorder, alcoholic F10.20; R26.9
[2025-04-09 09:45] VITALS: BP 124/74; PULSE 64; O2SAT 93; BMI 28.9
--- OUTSIDE RECORDS SUMMARY | 2025-04-09 11:09 | XMS_ITS | Encounter Summary ---
Author Organization [facility] Address [address] [place] [address] Care Team Providers Care Eligibility And Occupancy Interviewer Name Role Phone Ollie Walter MD Primary Care Provider [phone] Reason for Visit * Reason Onset Date Comments Echocardiogram 04/06/2025 Encounter Details Date Type Department Care Team (Late st Contact Info) Description 04/06/2025 Telephone [facility] [address] [place] [address] [place] [phone] Devorah Tejada NP [address] [place] [address] [address] [place] [id number] Social History Tobacco Use Types Packs/Day Years [...] on file documented as of this encounter Progress Notes * Maribel Sebastian - 04/06/2025 11:40 AM EDT I called the patient to schedule an echocardiogram but unfortunately no answer. I have left a voicemail with the appointment details for an appointment I scheduled on 07/17/24 @1:30pm for the Echocardiogram. documented in this encounter Plan of Treatment Upcoming Encounters Date Type Department Care Team (Late st Contact Info) Description 07/17/2025 1:30 PM EST Ancillary Procedure [facility] - [address] [place] [address] documented as of this encounter Visit Diagnoses Not on filedocumented in this encounter Care Teams Eligibility And Occupancy Interviewer Relationship Specialty Start Date End Date Ollie Walter MD [address] [place] [address] PCP - General Geriatric Medicine 03/02/25 documented as of this encounter
--- OUTSIDE RECORDS SUMMARY | 2025-04-09 11:09 | XMS_ITS | Clinical Summary ---
Author Organization [facility] Address [address] [place] [address] Care Team Providers Care Trucking Contractor Name Role Phone Unavailable Primary Care Provider [...] 1945 Imm-DTaP/Tdap/Td (1 - Tdap) 1964 Imm-Pneumococcal 50+ (1 of 1 - PCV) 1995 Imm-Zoster, Recombinant (1 of 2) 1995 Bone Density Screening 2010 Falls Prevention 2010 Imm-RSV (adult) (1 - 1-dose 75+ series) 2020 Alcohol and Drug Screen 07/05/2024 Depression Annual Screen 07/05/2024 Dental Examination 07/28/2024 07/26/2023 Hypertension Screening (#1) 08/25/2024 [id number] ( - 2023- season) 2025 Imm-Influenza (#1) 2025 Procedures Procedure Name Priority Date/Time Associated Diagnosis Comments COMP ORAL EVALUATION - NEW/ESTABLISHED PATIENT Routine 07/26/2023 11:00 AM EST Caries from Last 3 Months or Most Recently Relevant to Health Maintenance Insurance GENERIC - DENTAL Member Subscriber Plan / Payer (Ef fective 2023-Present) Name:Hannah Lane Member ID:[id number] Relation to Subscriber:Self Name:Hannah Lane Subscriber ID:[id number] Payer ID:[id number] Group ID:Not on file Type:Indemnity Address: [facility] [address] [address] [place] [address]
--- OUTSIDE RECORDS SUMMARY | 2025-04-09 11:09 | XMS_ITS | Encounter Summary ---
Author Organization [facility] Address [address] [place] [address] Care Team Providers Care Manufacturing Manager Name Role Phone Ollie Walter MD Primary Care Provider [phone] Encounter Details Date Type Department Care Team (Late Contact Info) Description 02/05/2025 Lab Requisition [facility] - Main Lab [address] [facility] [place] [address] Ollie Walter MD [address] [place], [place] [id number] Thyrotoxicosis, unspecified without thyrotoxic crisis or storm Social History Tobacco Use Types Packs/Day Years [...] on file documented as of this encounter Plan of Treatment Upcoming Encounters Date Type Department Care Team (Late st Contact Info) Description 07/17/2025 1:30 PM EST Ancillary Procedure [facility] - [address] [place] [address] documented as of this encounter Procedures Procedure Name Priority Date/Time Associated Diagnosis Comments COMPLETE BLOOD COUNT Routine 02/05/2025 5:29 AM EDT Thyrotoxicosis, unspecified without thyrotoxic crisis or storm COMPREHENSIVE METABOLIC PANEL Routine 02/05/2025 5:29 AM EDT Thyrotoxicosis, unspecified without thyrotoxic crisis or storm documented in this encounter Results * (ABNORMAL) Comprehensive metabolic panel (02/05/2025 5:29 AM EDT) Sodium 141 133 - 145 mmol/L LAB CHEMISTRY METHOD 02/05/2025 1:29 PM [facility] Potassium 3.8 3.5 - 5.5 mmol/L LAB CHEMISTRY METHOD 02/05/2025 1:29 PM [facility] Comment:Hemolysis present Chloride 98 96 - 110 mmol/L LAB CHEMISTRY METHOD 02/05/2025 1:29 PM [facility] CO2 32 21 - 32 mmol/L LAB CHEMISTRY METHOD 02/05/2025 1:29 PM [facility] Anion Gap 11 3 - 11 LAB CHEMISTRY METHOD 02/05/2025 1:29 PM [facility] Glucose 58(L) 70 - 100 mg/dL LAB CHEMISTRY METHOD 02/05/2025 1:29 PM [facility] BUN 11 5 - 25 mg/dL LAB CHEMISTRY METHOD 02/05/2025 1:29 PM [facility] Creatinine 1.10 0.50 - 1.10 mg/dL LAB CHEMISTRY METHOD 02/05/2025 1:29 PM [facility] eGFR 51(L) >=60 mL/min/1. 73m2 LAB CHEMISTRY METHOD 02/05/2025 1:29 PM [facility] Comment:Calculation based on the Chronic Kidney Disease Epidemiology Collaboration (CKD-EPI) equation refit without adjustment for race. BUN/Creatinine Ratio 10.0 LAB CHEMISTRY METHOD 02/05/2025 1:29 PM [facility] Calcium 8.1(L) 8.5 - 10.5 mg/dL LAB CHEMISTRY METHOD 02/05/2025 1:29 PM [facility] AST (SGOT) 19 10 - 42 unit/L LAB CHEMISTRY METHOD 02/05/2025 1:29 PM EDT [facility] Comment:Hemolysis present ALT (SGPT) 15 10 - 60 unit/L LAB CHEMISTRY METHOD 02/05/2025 1:29 PM EDT [facility] Alkaline Phosphatase 58 42 - 121 unit/L LAB CHEMISTRY METHOD 02/05/2025 1:29 PM EDT [facility] Total Protein 4.8(L) 6.0 - 8.0 g/dL LAB CHEMISTRY METHOD 02/05/2025 1:29 PM EDT [facility] Albumin 2.3(L) 3.2 - 5.0 g/dL LAB CHEMISTRY METHOD 02/05[facility]2025 [facility] Total Bilirubin 0.2 0.0 - 1.4 mg/dL LAB CHEMISTRY METHOD 02/05/2025 1:29 PM EDT [facility] Blood Venous blood specimen / Unknown Venipuncture / Unknown 02/05/2025 5:29 AM EDT 02/05/2025 10:49 AM EDT us Ollie Walter MD LAB BLOOD ORDERABLES Final Resul t [facility] [address] [place] [address], * (ABNORMAL) Complete blood count (02/05/2025 5:29 AM EDT) WBC 8.4 4.8 - 10.8 K/mcL LAB HEMETOLOGY METHOD 02/05/2025 12:20 PM EDT [facility] RBC 4.10 3.80 - 4.80 M/mcL LAB HEMETOLOGY METHOD 02/05/2025 12:20 PM EDT [facility] Hemoglobin 12.1 11.5 - 16.0 g/dL LAB HEMETOLOGY METHOD 02/05/2025 12:20 PM EDT [facility] Hematocrit 39.7 35.0 - 47.0 % LAB HEMETOLOGY METHOD 02/05/2025 12:20 PM EDT [facility] MCV 97.1 79.0 - 98.0 FL LAB HEMETOLOGY METHOD 02/05/2025 12:20 PM EDT [facility] MCH 29.6 27.0 - 32.0 pcg LAB HEMETOLOGY METHOD 02/05/2025 12:20 PM EDT [facility] MCHC 30.5(L) 32.0 - 37.0 g/dL LAB HEMETOLOGY METHOD 02/05/2025 12:20 PM EDT [facility] RDW 12.9 11.0 - 15.0 % LAB HEMETOLOGY METHOD 02/05/2025 12:20 PM EDT [facility] Platelets 242 130 - 400 K/mcL LAB HEMETOLOGY METHOD 02/05/2025 12:20 PM EDT [facility] MPV 11.6(H) 7.0 - 11.0 FL LAB HEMETOLOGY METHOD 02/05/2025 12:20 PM EDT [facility] NRBC 0.0 <1.0 % LAB HEMETOLOGY METHOD 02/05/2025 12:20 PM EDT [facility] NRBC Absolute 0.00 <0.10 K/mcL LAB HEMETOLOGY METHOD 02/05/2025 12:20 PM EDT [facility] Blood Venous blood specimen / Unknown Venipuncture / Unknown 02/05/2025 5:29 AM EDT 02/05/2025 10:49 AM EDT us Ollie Walter MD LAB BLOOD ORDERABLES Final Resul t [facility] [address] [place] [address], [place] [phone] documented in this encounter Visit Diagnoses Diagnosis Thyrotoxicosis, unspecified without thyrotoxic crisis or storm documented in this encounter Care Teams Manufacturing Manager Relationship Specialty Start Date End Date Ollie Walter MD [address] [place] [address] [address] [place] [address] PCP - General Geriatric Medicine 03/02/25 documented as of this encounter
--- OUTSIDE RECORDS SUMMARY | 2025-04-09 11:09 | XMS_ITS | Clinical Summary ---
Author Organization [address] Address [address] [place] [phone] Phone Care Team Providers Care Hr Director Name Role Phone Ollie Walter MD Primary Care Provider [phone] Allergies No known active allergies Medications pantoprazole (PROTONIX) 40 mg EC tablet Take 1 tablet (40 mg total) by mouth 1 (one) time each day. Do not crush, chew, or split. Active pravastatin (PRAVACHOL) 20 mg tablet Take 1 tablet (20 mg total) by mouth 1 (one) time each day. Active acetaminophen (TYLENOL) 500 mg tablet Take by mouth every 6 (six) hours if needed for mild pain. Active gabapentin (NEURONTIN) 300 mg capsule Take 1 capsule (300 mg total) by mouth 3 (three) times a day. Active albuterol HFA (PROAIR HFA ; PROVENTIL HFA ; VENTOLIN HFA) 90 mcg/actuation inhaler Inhale 2 puffs by mouth every 6 (six) hours if needed for wheezing. Active traZODone (DESYREL) 50 mg tablet Take 1.5 tablets (75 mg total) by mouth at bedtime. Active calcium carbonate-vitam in D 500 mg-5 mcg (200 unit) per tablet Take 1 tablet by mouth 1 (one) time each day. Active pravastatin (PRAVACHOL) 20 mg tablet Take 1 tablet (20 mg total) by mouth at bedtime. Active amLODIPine (NORVASC) 5 mg tablet Take by mouth 1 (one) time each day. Active metoprolol succinate (TOPROL-XL) 25 mg 24 hr tablet Take 1 tablet (25 mg total) by mouth 1 (one) time each day. Do not crush or chew. Active hydrALAZINE (APRESOLINE) 10 mg tablet Take by mouth 3 (three) times a day. Active chlorthalidone (HYGROTON) 25 mg tablet Take by mouth 1 (one) time each day. Active apixaban (ELIQUIS) 5 mg tablet Take 1 tablet (5 mg total) by mouth 2 (two) times a day. Active metoprolol succinate (TOPROL-XL) 25 mg 24 hr tablet Take 1 tablet (25 mg total) by mouth 1 (one) time each day. Do not crush or chew. 04/06/20 25 Discontinu ed(Entered in Error) Active Problems Problem Noted Date Diagnosed Date TBI (traumatic brain injury) ([facility] V24, CMS/ CC V28) 03/13/2025 Sinus tachycardia 03/13/2025 Paroxysmal atrial flutter (CMS/HCC V24, CMS/HCC V28) 03/13/2025 Encounters Date Type Department Care Team Description 04/06/2025 Telephone [facility] Cardiology [facility] [address] [place] [address] Devorah Tejada NP 04/05/2025 12:40 PM EDT Office Visit [facility] Cardiology [facility] [address] [place] [address] Devorah Tejada NP Atrial fibrillation, unspecified type (CMS/HCC V24, CMS/HCC V28) (Primary Dx); Hypertension, unspecified type 03/02/2025 Lab Requisition [facility] - Main Lab [address] [place] [address] Ollie Walter MD Thyrotoxicosis, unspecified without thyrotoxic crisis or storm 02/24/2025 Lab Requisition [facility] Lab [address] [place] [address] Ollie Walter MD Thyrotoxicosis, unspecified without thyrotoxic crisis or storm 02/23/2025 Lab Requisition [facility] Main Lab [address] [place] [address] Ollie Walter MD Disorder of kidney and ureter, unspecified; Hematuria, unspecified 02/23/2025 Lab Requisition [facility] Lab [address] [place] [phone] Ollie Walter MD Urinary tract infection, site not specified 02/18/2025 Lab Requisition [facility] Lab [address] [place] [phone] Ollie Walter MD Thyrotoxicosis, unspecified without thyrotoxic crisis or storm 02/09/2025 Lab Requisition [facility] Lab [address] [place] [phone] Ollie Walter MD Thyrotoxicosis, unspecified without thyrotoxic crisis or storm 02/05/2025 Lab Requisition [facility] Lab [address] [place] [phone] Ollie Walter MD Thyrotoxicosis, unspecified without thyrotoxic crisis or storm 02/01/2025 Telephone [facility] [address] [place] [phone] Jane Land NP from Last 3 Months Surgical History Surgery Date Site/Laterality Comments OTHER SURGICAL HISTORY 2008 PROCEDURE: IN STRTCTC IMPLTJ NSTIM ELTRD W/O RECORD 1ST ARRAY; COMMENT: decrompression for traumatic brain injury COLONOSCOPY 10/16/13 PROCEDURE: HISTORICAL COLONOSCOPY; COMMENT: normal; base of cecum not reached; repeat in 5 yrs under propofol Medical History Medical History Date Comments HTN (hypertension) DX:HTN (hyper tension) Depression DX:Depression Hypercholesterolemia DX:Hypercho lesterolemia Osteoporosis DX:Osteoporosis Traumatic brain injury ([facility]/ [facility] V24, [facility] V28) DX:Traumatic brain injury (H CC); COMMENT: fall from stair, hitting head on concrete, 2008. went through rehab in [place] since. Prediabetes 07/21/2020 DX:Prediabetes; COMMENT: 04/20 A1C 6.1 Hyperthyroidism Thyrotoxicosis Nausea and vomiting Acute renal insufficiency Gall bladder stones Dysphagia Obesity, Class I, BMI 30-34.9 Traumatic intracranial hemor rhage ([facility] V24, [facility] V28) Seborrhea CKD (chronic kidney disease) , stage III ([facility] V24, [facility] V28) Insomnia Family History Medical History Relation Name Comments [...] Mass Index 28.98 04/05/2025 12:56 PM EDT Plan of Treatment Upcoming Encounters Date Type Department Care Team (Late st Contact Info) Description 07/17/2025 1:30 PM EST Ancillary Procedure [facility] - [facility] [address] [facility] [address] [place] [address] Health Maintenance Due Date Last Done Comments Colorectal Cancer Screening: Colonoscopy 1945 Zoster Vaccines (1 of 2) 1995 RSV Immunization Adult Patients (1 - 1-dose 75+ series) 2020 Cholesterol Screening (Lipid Panel) 06/13/2022 Falls Risk Assessment 06/13/2022 Hepatitis C Screening 06/13/2022 Medicare Annual Wellness Visit 06/13/2022 Social Influencers of Health Screening 06/13/2022 Osteoporosis Screening (Bone Density Screening) 04/05/2023 04/05/2018 Depression Screening 07/05/2024 COVID-19 Vaccine ( season) 2025 07/20/2020 Influenza Vaccine (#1) 2025 , 04/06/2023, 05/06/2022, Additional history exists Hypertension/CHF/CAD Annual BMP Blood Test 02/26/2026 02/26/2025, 02/19/2025, 02/12/2025, Additional history exists DTaP,Tdap,and Td Vaccines (3 - Td or Tdap) 05/23/2028 05/23/2018, 02/07/2007 Pneumococcal Vaccine: 50+ Years Completed 12/15/2023, 11/15/2017, 08/10/2016 HIB Vaccines Aged Out No [...] fibrillation, unspecified type (CMS/HCC V24, CMS/HCC V28) BASIC METABOLIC PANEL Routine 02/26/2025 5:28 AM EDT Thyrotoxicosis, unspecified without thyrotoxic crisis or storm COMPLETE BLOOD COUNT Routine 02/26/2025 5:28 AM EDT Thyrotoxicosis, unspecified without thyrotoxic crisis or storm CBC WITH AUTO DIFFERENTIAL Routine 02/23/2025 6:16 AM EDT Disorder of kidney and ureter, unspecified Hematuria, unspecified TRIIODOTHYRONINE TOTAL Routine 6:16 AM EDT Disorder of kidney and ureter, unspecified Hematuria, unspecified THYROXINE FREE Routine 02/23/2025 6:16 AM EDT Disorder of kidney and ureter, unspecified Hematuria, unspecified THYROID STIMULATING HORMONE Routine 02/23/2025 6:16 AM EDT Disorder of kidney and ureter, unspecified Hematuria, unspecified CBC AND DIFFERENTIAL Routine 02/23/2025 6:16 AM EDT Disorder of kidney and ureter, unspecified Hematuria, unspecified URINALYSIS WITH REFLEX MICROSCOPIC Routine 02/22/2025 10:00 PM EDT Urinary tract infection, site not specified URINALYSIS WITH REFLEX MICROSCOPIC Routine 02/22/2025 10:00 PM EDT Urinary tract infection, site not specified CULTURE URINE Routine 02/22/2025 10:00 PM EDT Urinary tract infection, site not specified BASIC METABOLIC PANEL Routine 02/19/2025 5:29 AM EDT Thyrotoxicosis, unspecified without thyrotoxic crisis or storm COMPLETE BLOOD COUNT Routine 02/19/2025 5:29 AM EDT Thyrotoxicosis, unspecified without thyrotoxic crisis or storm BASIC METABOLIC PANEL Routine 02/12/2025 5:25 AM EDT Thyrotoxicosis, unspecified without thyrotoxic crisis or storm COMPLETE BLOOD COUNT Routine 02/12/2025 5:25 AM EDT Thyrotoxicosis, unspecified without thyrotoxic crisis or storm COMPREHENSIVE METABOLIC PANEL Routine 02/05/2025 5:29 AM EDT Thyrotoxicosis, unspecified without thyrotoxic crisis or storm COMPLETE BLOOD COUNT Routine 02/05/2025 5:29 AM EDT Thyrotoxicosis, unspecified without thyrotoxic crisis or storm DXA BONE DENSITY STUDY 1+ SITS AXIAL SKEL Routine 04/05/2018 3:05 PM EDT Age-related osteoporosis without current pathological fracture from Last 3 Months or Most Recently Relevant to Health Maintenance Results * ECG 12 lead (04/05/2025 1:23 PM EDT) Pathologist [facility] Ventricular Rate ECG 58 BPM GEMUSE Atrial Rate 58 BPM GEMUSE P-R Interval 134 ms GEMUSE QRS Duration 96 ms GEMUSE Q-T Interval 452 ms GEMUSE QTc 443 ms GEMUSE P Wave Raymond 72 degrees GEMUSE R Raymond 52 degrees GEMUSE T Raymond -175 degrees GEMUSE ECG Interpretation Sinus bradycardia [...] 1:01 PM EDT 04/09/2025 8:57 AM EDT Devorah Tejada NP ECG ORDERABLES Edited Result - Final GEMUSE * (ABNORMAL) Complete blood count (02/26/2025 5:28 AM EDT) Only the most recent of4 resultswithin the time period is included. Pathologist [facility] WBC 9.7 4.8 - 10.8 K/[facility] LAB HEMETOLOGY METHOD 02/26/2025 11:[address] [facility] RBC 3.90 3.80 - 4.80 M/[facility] LAB HEMETOLOGY METHOD 02/26/2025 11:31 AM [facility] Hemoglobin 12.1 11.5 - 16.0 g/dL LAB HEMETOLOGY METHOD 02/26/2025 11:31 AM [facility] Hematocrit 36.6 35.0 - 47.0 % LAB HEMETOLOGY METHOD 02/26/2025 11:31 AM [facility] MCV 93.1 79.0 - 98.0 FL LAB HEMETOLOGY METHOD 02/26/2025 11:31 AM [facility] MCH 30.8 27.0 - 32.0 pcg LAB HEMETOLOGY METHOD 02/26/2025 11:31 AM [facility] MCHC 33.1 32.0 - 37.0 g/dL LAB HEMETOLOGY METHOD 02/26/2025 11:31 AM [facility] RDW 12.7 11.0 - 15.0 % LAB HEMETOLOGY METHOD 02/26/2025 11:31 AM [facility] Platelets 249 130 - 400 K/mcL LAB HEMETOLOGY METHOD 02/26/2025 11:31 AM [facility] MPV 11.7(H) 7.0 - 11.0 FL LAB HEMETOLOGY METHOD 02/26/2025 11:31 AM [facility] NRBC 0.0 <1.0 % LAB HEMETOLOGY METHOD 02/26/2025 11:31 AM [facility] NRBC Absolute 0.00 <0.10 K/mcL LAB HEMETOLOGY METHOD 02/26/2025 11:31 AM [facility] Blood Venous blood specimen / Unknown Venipuncture / Unknown 02/26/2025 5:28 AM EDT 02/26/2025 10:06 AM EDT Ollie Walter MD LAB BLOOD ORDERABLES Final Resul t [facility] [address] [place] [address], * (ABNORMAL) Basic metabolic panel (02/26/2025 5:28 AM EDT) Only the most recent of3 resultswithin the time period is included. Sodium 138 133 - 145 mmol/L LAB CHEMISTRY METHOD 02/26/2025 11:58 AM [facility] Potassium 3.5 3.5 - 5.5 mmol/L LAB CHEMISTRY METHOD 02/26/2025 11:58 AM [facility] Chloride 96 96 - 110 mmol/L LAB CHEMISTRY METHOD 02/26/2025 11:58 AM [facility] CO2 33(H) 21 - 32 mmol/L LAB CHEMISTRY METHOD 02/26/2025 11:58 AM [facility] Anion Gap 9 3 - 11 LAB CHEMISTRY METHOD 02/26/2025 11:58 AM [facility] Glucose 69(L) 70 - 100 mg/dL LAB CHEMISTRY METHOD 02/26/2025 11:58 AM [facility] BUN 14 5 - 25 mg/dL LAB CHEMISTRY METHOD 02/26/2025 11:58 AM [facility] Creatinine 1.09 0.50 - 1.10 mg/dL LAB CHEMISTRY METHOD 02/26/2025 11:58 AM [facility] eGFR 52(L) >=60 mL/min/1. 73m2 LAB CHEMISTRY METHOD 02/26/2025 11:58 AM [facility] Comment:Calculation based on the Chronic Kidney Disease Epidemiology Collaboration (CKD-EPI) equation refit without adjustment for race. BUN/Creatinine Ratio 12.8 LAB CHEMISTRY METHOD 02/26/2025 11:58 AM [facility] Calcium 8.6 8.5 - 10.5 mg/dL LAB CHEMISTRY METHOD 02/26/2025 11:[address] [facility] Blood Venous blood specimen / Unknown Venipuncture / Unknown 02/26/2025 5:28 AM EDT 02/26/2025 10:06 AM EDT us Ollie Walter MD LAB BLOOD ORDERABLES Final Resul t [facility] [address] [place] [address], [place] [phone] * (ABNORMAL) CBC auto differential (02/23/2025 6:16 AM EDT) WBC 9.0 4.8 - 10.8 K/mcL LAB HEMETOLOGY METHOD 02/23/2025 10:[address] [facility] RBC 3.90 3.80 - 4.80 M/mcL LAB HEMETOLOGY METHOD 02/23/2025 10:[address] [facility] Hemoglobin 11.3(L) 11.5 - 16.0 g/dL LAB HEMETOLOGY METHOD 02/23/2025 10:[address] [facility] Hematocrit 36.3 35.0 - 47.0 % LAB HEMETOLOGY METHOD 02/23/2025 10:[address] [facility] MCV 93.1 79.0 - 98.0 FL LAB HEMETOLOGY METHOD 02/23/2025 10:[address] [facility] MCH 29.0 27.0 - 32.0 pcg LAB HEMETOLOGY METHOD 02/23/2025 10:[address] [facility] MCHC 31.1(L) 32.0 - 37.0 g/dL LAB HEMETOLOGY METHOD 02/23/2025 10:[address] [facility] RDW 12.6 11.0 - 15.0 % LAB HEMETOLOGY METHOD 02/23/2025 10:15 AM [facility] Platelets 214 130 - 400 K/mcL LAB HEMETOLOGY METHOD 02/23/2025 10:15 AM [facility] MPV 11.4(H) 7.0 - 11.0 FL LAB HEMETOLOGY METHOD 02/23/2025 10:15 AM [facility] NRBC 0.0 <1.0 % LAB HEMETOLOGY METHOD [facility]/23[facility]25 [facility] NRBC Absolute 0.00 <0.10 K/mcL LAB HEMETOLOGY METHOD 02/23/2025 10:15 AM [facility] Neutrophils Relative 75.7 % LAB HEMETOLOGY METHOD 02/23/2025 10:15 AM [facility] Lymphocytes Relative 11.2 % LAB HEMETOLOGY METHOD 02/23/2025 10:15 AM [facility] Monocytes Relative 10.3 % LAB HEMETOLOGY METHOD 02/23/2025 10:15 AM [facility] Eosinophils Relative 1.4 % LAB HEMETOLOGY METHOD 02/23/2025 10:15 AM [facility] Basophils Relative 0.3 % LAB HEMETOLOGY METHOD 02/23/2025 10:15 AM [facility] Immature Granulocytes Relative 1.1 % LAB HEMETOLOGY METHOD 02/23/2025 10:15 AM [facility] Neutrophils Absolute 6.82 1.50 - 7.00 K/mcL LAB HEMETOLOGY METHOD 02/23/2025 10:15 AM [facility] Lymphocytes Absolute 1.01 1.00 - 5.00 K/mcL LAB HEMETOLOGY METHOD 02/23/2025 10:15 AM [facility] Monocytes Absolute 0.93 0.20 - 1.00 K/mcL LAB HEMETOLOGY METHOD 02/23/2025 10:[address] [facility] Eosinophils Absolute 0.13 0.00 - 0.50 K/[facility] LAB HEMETOLOGY METHOD 02/23/2025 10:[address] [facility] Basophils Absolute 0.03 0.00 - 0.20 K/[facility] LAB HEMETOLOGY METHOD 02/23/2025 10:[address] [facility] Immature Granulocytes Absolute 0.10(H) 0.00 - 0.03 K/[facility] LAB HEMETOLOGY METHOD 02/23/2025 10:[address] [facility] Blood Venous blood specimen / Unknown Venipuncture / Unknown 02/23/2025 6:16 AM EDT 02/23/2025 9:01 AM EDT us Ollie Walter MD LAB BLOOD ORDERABLES Final Resul t Performing Organization Address City/[facility]/ZIP Co de Phone Number [facility] [address] [place] [address], [place] [phone] * Triiodothyronine total (02/23/2025 6:16 AM EDT) T3, Total 75.28 60.00 - 181.00 ng/dL LAB CHEMISTRY METHOD 02/23/2025 11:[address] [facility] Blood Venous blood specimen / Unknown Venipuncture / Unknown 02/23/2025 6:16 AM EDT 02/23/2025 9:01 AM EDT us Ollie Walter MD LAB BLOOD ORDERABLES Final Resul t [facility] [address] [place] [address], [place] [phone] * Thyroid stimulating hormone (02/23/2025 6:16 AM EDT) TSH 0.73 0.40 - 4.00 mcIU/mL LAB CHEMISTRY METHOD 02/23/2025 11:[address] [facility] Blood Venous blood specimen / Unknown Venipuncture / Unknown 02/23/2025 6:16 AM EDT 02/23/2025 9:01 AM EDT us Ollie Walter MD LAB BLOOD ORDERABLES Final Resul t Performing Organization Address [facility]/ZIP Co de Phone Number [facility] [address] [place] [address], [place] [phone] * Thyroxine free (02/23/2025 6:16 AM EDT) [facility] Free T4 1.40 0.70 - 1.80 ng/dL LAB CHEMISTRY METHOD 02/23/2025 11:[address] [facility] Blood Venous blood specimen / Unknown Venipuncture / Unknown 02/23/2025 6:16 AM EDT 02/23/2025 9:01 AM EDT us Ollie Walter MD LAB BLOOD ORDERABLES Final Resul t Performing Organization Address [facility] de Phone Number [facility] [address] [place] [address], [place] [phone] * (ABNORMAL) Urinalysis with reflex microscopic (02/22/2025 10:00 PM EDT) [facility] Specific [place] Urine 1.019 1.003 - 1.030 LAB URINALYSIS - AUTOMATED METHOD 02/23/2025 11:[address] [facility] pH, Urine 5.0 5.0 - 8.0 pH LAB URINALYSIS - AUTOMATED METHOD 02/23/2025 11:[address] [facility] Leukocytes, Urine Small(A) Negative LAB URINALYSIS - AUTOMATED METHOD 02/23/2025 11:02 [facility] Nitrite, Urine Negative Negative LAB URINALYSIS - AUTOMATED METHOD 02/23/2025 11:02 AM [facility] Protein, Urine 300(A) <=Trace mg/dL LAB URINALYSIS - AUTOMATED METHOD 02/23/2025 11:02 AM [facility] Glucose, Urine Negative Negative mg/dL LAB URINALYSIS - AUTOMATED METHOD 02/23/2025 11:02 AM [facility] Ketones, Urine Negative Negative mg/dL LAB URINALYSIS - AUTOMATED METHOD 02/23/2025 11:02 AM [facility] Urobilinogen , Urine 0.2 0.2 - 1.0 mg/dL LAB URINALYSIS - AUTOMATED METHOD 02/23/2025 11:02 AM [facility] Bilirubin, Urine Small(A) Negative LAB URINALYSIS - AUTOMATED METHOD 02/23/2025 11:02 AM [facility] Blood, Urine Large(A) Negative LAB URINALYSIS - AUTOMATED METHOD 02/23/2025 11:02 AM [facility] RBC, Urine >4,000(H) 0 - 4 /HPF LAB URINALYSIS - AUTOMATED METHOD 02/23/2025 11:02 AM [facility] WBC, Urine 17.2(H) 0 - 4 /HPF LAB URINALYSIS - AUTOMATED METHOD 02/23/2025 11:02 AM [facility] Squamous Epithelial, Urine 20 0 - 60 /LPF LAB URINALYSIS - AUTOMATED METHOD 02/23/2025 11:02 AM [facility] Bacteria, Urine Few(A) Negative /HPF LAB URINALYSIS - AUTOMATED METHOD 02/23/2025 11:02 AM [facility] Hyaline Casts, Urine 3.2(H) 0 - 3 /LPF LAB URINALYSIS - AUTOMATED METHOD 02/23/2025 11:02 AM [facility] Urine Urine specimen from urethra / Unknown 02/22/2025 10:00 PM EDT 02/23/2025 9:32 AM EDT us Ollie Walter MD LAB URINE ORDERABLES Final Resul t Performing Organization Address [facility]/ZIP Co de Phone Number [facility] [address] [place] [address], [place] [phone] * Culture urine (02/22/2025 10:00 PM EDT) Pathologist [facility] Culture, Urine No growth 02/24/2025 9:[address] [facility] Urine Urine specimen from urethra / Unknown 02/22/2025 10:00 PM EDT 02/23/2025 9:32 AM EDT us Ollie Walter MD LAB MICROBIOLOGY - GENERAL ORDER [place] Final Result Performing Organization Address [facility]/ZIP Co de Phone Number [facility] [address] [place] [address], [place] [phone] * (ABNORMAL) Comprehensive metabolic panel (02/05/2025 5:29 AM EDT) Sodium 141 133 - 145 mmol/L LAB CHEMISTRY METHOD 02/05/2025 1:[address] [facility] Potassium 3.8 3.5 - 5.5 mmol/L LAB CHEMISTRY METHOD 02/05/2025 1:[address] [facility] Comment:Hemolysis present Chloride 98 96 - 110 mmol/L LAB CHEMISTRY METHOD 02/05/2025 1:[address] [facility] CO2 32 21 - 32 mmol/L LAB CHEMISTRY METHOD 02/05/2025 1:[address] [facility] Anion Gap 11 3 - 11 LAB CHEMISTRY METHOD 02/05/2025 1:[address] [facility] Glucose 58(L) 70 - 100 mg/dL LAB CHEMISTRY METHOD 02/05/2025 1:29 PM [facility] BUN 11 5 - 25 mg/dL LAB CHEMISTRY METHOD 02/05/2025 1:29 PM [facility] Creatinine 1.10 0.50 - 1.10 mg/dL LAB CHEMISTRY METHOD 02/05/2025 1:29 PM [facility] eGFR 51(L) >=60 mL/min/1. 73m2 LAB CHEMISTRY METHOD 02/05/2025 1:29 PM [facility] Comment:Calculation based on the Chronic Kidney Disease Epidemiology Collaboration (CKD-EPI) equation refit without adjustment for race. BUN/Creatinine Ratio 10.0 LAB CHEMISTRY METHOD 02/05/2025 1:29 PM [facility] Calcium 8.1(L) 8.5 - 10.5 mg/dL LAB CHEMISTRY METHOD 02/05/2025 1:29 PM [facility] AST (SGOT) 19 10 - 42 unit/L LAB CHEMISTRY METHOD 02/05/2025 1:29 PM [facility] Comment:Hemolysis present ALT (SGPT) 15 10 - 60 unit/L LAB CHEMISTRY METHOD 02/05/2025 1:29 PM [facility] Alkaline Phosphatase 58 42 - 121 unit/L LAB CHEMISTRY METHOD 02/05/2025 1:29 PM [facility] Total Protein 4.8(L) 6.0 - 8.0 g/dL LAB CHEMISTRY METHOD 02/05/2025 1:29 PM [facility] Albumin 2.3(L) 3.2 - 5.0 g/dL LAB CHEMISTRY METHOD 02/05/2025 1:29 PM [facility] Total Bilirubin 0.2 0.0 - 1.4 mg/dL LAB CHEMISTRY METHOD 02/05/2025 1:29 PM [facility] Blood Venous blood specimen / Unknown Venipuncture / Unknown 02/05/2025 5:29 AM EDT 02/05/2025 10:49 AM EDT Ollie Walter MD LAB BLOOD ORDERABLES Final Resul t [facility] ([facility]) [facility] [address] [place] [address], * DXA BONE DENSITY STUDY 1+ SITS AXIAL SKEL (04/05/2018 3:05 PM EDT) Anatomical Region Laterality Modality Bone Densitometr y 11/15/2017 1:16 PM EDT Narrative 04/05/2018 5:55 PM EDT BONE DENSITY Lumbar Spine T-score is +0.9 (SD relative to 20-29 y/o adult) Z-score is +3.3 (SD relative to age matched peers) This is normal by criteria defined by the WHO. Left Hip T-score is +0.7 Z-score is +2.4 This is normal by criteria defined by the WHO. Impression: Based on the World Health Organization criteria, Татья[address] should be classified as having normal bone density. [facility] Department of Internal Medicine recommends using National [...] Based on the World Health Organization criteria, Татьяна Da Silva Guichomary should beclassified as having normal bone density. [facility] Department of Internal Medicine recommendsusing National Osteoporosis [...] fracture risk by FRAX. Cleveland Parikh MD [facility] [place] PROCEDURES Final Resul t from Last 3 Months or Most Recently Relevant to Health Maintenance Insurance MED[place] Advance Directives Documents on File Type Date Recorded Patient Residential Team Leader Expl anation Health Care Decision (hx) 05/15/2020 AD MELGOZA DIRECTIVE Health Care Decision (hx) 05/15/2020 AD MELGOZA DIRECTIVE Health Care Decision (hx) 05/15/2020 AD MELGOZA DIRECTIVE Health Care Decision (hx) 05/15/2020 AD MELGOZA DIRECTIVE Health Care Decision (hx) 05/15/2020 AD MELGOZA DIRECTIVE Care Teams Hr Director Relationship Specialty Start Date End Date Ollie Walter MD [address] [place] [address] [address] [place] [address] PCP - General Geriatric Medicine 03/02/25
--- OUTSIDE RECORDS SUMMARY | 2025-04-09 11:09 | XMS_ITS | Encounter Summary ---
Author Organization [facility] Address [address] [place] [address] Care Team Providers Care Director Of Patient Safety Name Role Phone Ollie Walter MD Primary Care Provider [phone] Encounter Details Date Type Department Care Team (Late Contact Info) Description 02/18/2025 Lab Requisition [facility] - Main Lab 299 [facility] [place] [address] Ollie Walter MD [address] [place], [place] [id number] Thyrotoxicosis, unspecified without thyrotoxic crisis or storm [...] Description 07/17/2025 1:30 PM EST Ancillary Procedure [facility] [address] [place] [phone] documented as of this encounter Procedures Procedure Name Priority Date/Time Associated Diagnosis Comments COMPLETE BLOOD COUNT Routine 02/19/2025 5:29 AM EDT Thyrotoxicosis, unspecified without thyrotoxic crisis or storm BASIC METABOLIC PANEL Routine 02/19/2025 5:29 AM EDT Thyrotoxicosis, unspecified without thyrotoxic crisis or storm documented in this encounter Results * (ABNORMAL) Basic metabolic panel (02/19/2025 5:29 AM EDT) Sodium 142 133 - 145 mmol/L LAB CHEMISTRY METHOD 02/19/2025 11:55 AM [facility] Potassium 3.8 3.5 - 5.5 mmol/L LAB CHEMISTRY METHOD 02/19/2025 11:55 AM [facility] Chloride 98 96 - 110 mmol/L LAB CHEMISTRY METHOD 02/19/2025 11:55 AM [facility] CO2 37(H) 21 - 32 mmol/L LAB CHEMISTRY METHOD 02/19/2025 11:55 AM [facility] Anion Gap 7 3 - 11 LAB CHEMISTRY METHOD 02/19/2025 11:55 AM [facility] Glucose 68(L) 70 - 100 mg/dL LAB CHEMISTRY METHOD 02/19/2025 11:55 AM [facility] BUN 14 5 - 25 mg/dL LAB CHEMISTRY METHOD 02/19/2025 11:55 AM [facility] Creatinine 0.96 0.50 - 1.10 mg/dL LAB CHEMISTRY METHOD 02/19/2025 11:55 AM [facility] eGFR 60 >=60 mL/min/1. 73m2 LAB CHEMISTRY METHOD 02/19/2025 11:55 AM [facility] Comment:Calculation based on the Chronic Kidney Disease Epidemiology Collaboration (CKD-EPI) equation refit without adjustment for race. BUN/Creatinine Ratio 14.6 LAB CHEMISTRY METHOD 02/19/2025 11:55 AM [facility] Calcium 8.7 8.5 - 10.5 mg/dL LAB CHEMISTRY METHOD 02/19/2025 11:55 AM [facility] Blood Venous blood specimen / Unknown Venipuncture / Unknown 02/19/2025 5:29 AM EDT 02/19/2025 9:58 AM EDT Ollie Walter MD LAB BLOOD ORDERABLES Final Resul t [facility] [address] [place] [address], [place] [phone] * (ABNORMAL) Complete blood count (02/19/2025 5:29 AM EDT) [facility] WBC 8.6 4.8 - 10.8 K/mcL LAB HEMETOLOGY METHOD 02/19/2025 11:51 AM EDT [facility] RBC 4.00 3.80 - 4.80 M/mcL LAB HEMETOLOGY METHOD 02/19/2025 11:51 AM EDT [facility] Hemoglobin 11.7 11.5 - 16.0 g/dL LAB HEMETOLOGY METHOD 02/19/2025 11:51 AM EDT [facility] Hematocrit 39.0 35.0 - 47.0 % LAB HEMETOLOGY METHOD 02/19/2025 11:51 AM EDT [facility] MCV 96.5 79.0 - 98.0 FL LAB HEMETOLOGY METHOD 02/19/2025 11:51 AM T [facility] MCH 29.0 27.0 - 32.0 pcg LAB HEMETOLOGY METHOD 02/19/2025 11:51 AM EDT [facility] MCHC 30.0(L) 32.0 - 37.0 g/dL LAB HEMETOLOGY METHOD 02/19/2025 11:51 AM EDT [facility] RDW 12.7 11.0 - 15.0 % LAB [facility]EMETOLOGY [facility]19[facility] Platelets 205 130 - 400 K/mcL LAB HEMETOLOGY METHOD 02/19/2025 11:51 AM EDT [facility] MPV 12.2(H) 7.0 - 11.0 FL LAB HEMETOLOGY METHOD 02/19/2025 11:51 AM EDT [facility] NRBC 0.0 <1.0 % LAB [facility] METHOD 02/19/2025 11:51 AM EDT [facility] NRBC Absolute 0.00 <0.10 K/mcL LAB HEMETOLOGY METHOD 02/19/2025 11:51 AM EDT [facility] Blood Venous blood specimen / Unknown Venipuncture / Unknown 02/19/2025 5:29 AM EDT 02/19/2025 9:58 AM EDT us Ollie Walter MD LAB BLOOD ORDERABLES Final Resul t [facility] [address] [place] [address], documented in this encounter Visit Diagnoses Diagnosis Thyrotoxicosis, unspecified without thyrotoxic crisis or storm documented in this encounter Care Teams Director Of Patient Safety Relationship Specialty Start Date End Date Ollie Walter MD [address] [place], [place] [id number] [place] [address] PCP - General Geriatric Medicine 03/02/25 documented as of this encounter
--- OUTSIDE RECORDS SUMMARY | 2025-04-09 11:09 | XMS_ITS | Encounter Summary ---
Author Organization [facility] Address [address] [place] [address] Care Team Providers Care Stock Control Clerk Name Role Phone Ollie Walter MD Primary Care Provider [phone] Encounter Details Date Type Department Care Team (Late Contact Info) Description 02/24/2025 Lab Requisition [facility] - Main Lab 299 [facility] [place] [address] Ollie Walter MD [address] [place], [place] [phone] Thyrotoxicosis, unspecified without thyrotoxic crisis or storm [...] Description 07/17/2025 1:30 PM EST Ancillary Procedure [facility] - [address] [place] [phone] documented as of this encounter Procedures Procedure Name Priority Date/Time Associated Diagnosis Comments COMPLETE BLOOD COUNT Routine 02/26/2025 5:28 AM EDT Thyrotoxicosis, unspecified without thyrotoxic crisis or storm BASIC METABOLIC PANEL Routine 02/26/2025 5:28 AM EDT Thyrotoxicosis, unspecified without thyrotoxic crisis or storm documented in this encounter Results * (ABNORMAL) Basic metabolic panel (02/26/2025 5:28 AM EDT) Sodium 138 133 - 145 mmol/L LAB CHEMISTRY METHOD 02/26/2025 11:58 AM [facility] Potassium 3.5 3.5 - 5.5 mmol/L LAB CHEMISTRY METHOD 02/26/2025 11:58 AM [facility] Chloride 96 96 - 110 mmol/L LAB CHEMISTRY METHOD 02/26/2025 11:58 AM [facility] CO2 33(H) 21 - 32 mmol/L LAB CHEMISTRY METHOD 02/26/2025 11:58 AM [facility] Anion Gap 9 3 - 11 LAB CHEMISTRY METHOD 02/26/2025 11:58 AM [facility] Glucose 69(L) 70 - 100 mg/dL LAB CHEMISTRY METHOD 02/26/2025 11:58 AM [facility] BUN 14 5 - 25 mg/dL LAB CHEMISTRY METHOD 02/26/2025 11:58 AM [facility] Creatinine 1.09 0.50 - 1.10 mg/dL LAB CHEMISTRY METHOD 02/26/2025 11:58 AM [facility] eGFR 52(L) >=60 mL/min/1. 73m2 LAB CHEMISTRY METHOD 02/26/2025 11:58 AM [facility] Comment:Calculation based on the Chronic Kidney Disease Epidemiology Collaboration (CKD-EPI) equation refit without adjustment for race. BUN/Creatinine Ratio 12.8 LAB CHEMISTRY METHOD 02/26/2025 11:58 AM [facility] Calcium 8.6 8.5 - 10.5 mg/dL LAB CHEMISTRY METHOD 02/26/2025 11:58 AM [facility] Blood Venous blood specimen / Unknown Venipuncture / Unknown 02/26/2025 5:28 AM EDT 02/26/2025 10:06 AM EDT us Ollie Walter MD LAB BLOOD ORDERABLES Final Resul t [facility] [address] [place] [address], * (ABNORMAL) Complete blood count (02/26/2025 5:28 AM EDT) [facility] WBC 9.7 4.8 - 10.8 K/mcL LAB HEMETOLOGY METHOD 02/26/2025 11:31 AM EDT [facility] RBC 3.90 3.80 - 4.80 M/mcL LAB HEMETOLOGY METHOD 02/26/2025 11:31 AM [facility] Hemoglobin 12.1 11.5 - 16.0 g/dL LAB HEMETOLOGY METHOD 02/26/2025 11:31 AM [facility] Hematocrit 36.6 35.0 - 47.0 % LAB HEMETOLOGY METHOD 02/26/2025 11:31 AM [facility] MCV 93.1 79.0 - 98.0 FL LAB HEMETOLOGY METHOD 02/26/2025 11:31 AM [facility] MCH 30.8 27.0 - 32.0 pcg LAB HEMETOLOGY METHOD 02/26/2025 11:31 AM EDT [facility] MCHC 33.1 32.0 - 37.0 g/dL LAB HEMETOLOGY METHOD 02/26/2025 11:31 AM EDT [facility] RDW 12.7 11.0 - 15.0 % LAB HEMETOLOGY METHOD 02/26/2025 11:31 AM [facility] Platelets 249 130 - 400 K/mcL LAB HEMETOLOGY METHOD 02/26/2025 11:31 AM EDT [facility] MPV 11.7(H) 7.0 - 11.0 FL LAB HEMETOLOGY METHOD 02/26/2025 11:31 AM EDT [facility] NRBC 0.0 <1.0 % [facility] 02/26/2025 11:31 AM EDT [facility] NRBC Absolute 0.00 <0.10 K/mcL LAB HEMETOLOGY METHOD 02/26/2025 11:31 AM EDT [facility] Blood Venous blood specimen / Unknown Venipuncture / Unknown 02/26/2025 5:28 AM EDT 02/26/2025 10:06 AM EDT us Ollie Walter MD LAB BLOOD ORDERABLES Final Resul t [facility] [address] [place] [address], documented in this encounter Visit Diagnoses Diagnosis Thyrotoxicosis, unspecified without thyrotoxic crisis or storm documented in this encounter Care Teams Stock Control Clerk Relationship Specialty Start Date End Date Ollie Walter MD [address] [place], [place] [id number] [place] [address] PCP - General Geriatric Medicine 03/02/25 documented as of this encounter
--- OUTSIDE RECORDS SUMMARY | 2025-04-09 11:09 | XMS_ITS | Encounter Summary ---
Author Organization [facility] Address [address] [place] [address] Care Team Providers Care Level Vial Marker Name Role Phone Ollie Walter MD Primary Care Provider Encounter Details Date Type Department Care Team (Late st Contact Info) Description 02/23/2025 Lab Requisition [facility] - Main Lab 299 [facility] [place] [address] Ollie Walter MD [address] [place], [place] [phone] Urinary tract infection, site not specified Social History Tobacco Use Types Packs/Day Years [...] Description 07/17/2025 1:30 PM EST Ancillary Procedure [facility] - [address] [place] [address] documented as of this encounter Procedures Procedure Name Priority Date/Time Associated Diagnosis Comments URINALYSIS WITH REFLEX MICROSCOPIC Routine 02/22/2025 10:00 PM EDT Urinary tract infection, site not specified URINALYSIS WITH REFLEX MICROSCOPIC Routine 02/22/2025 10:00 PM EDT Urinary tract infection, site not specified CULTURE URINE Routine 02/22/2025 10:00 PM EDT Urinary tract infection, site not specified documented in this encounter Results * (ABNORMAL) Urinalysis with reflex microscopic (02/22/2025 10:00 PM EDT) Specific [place] Urine 1.019 1.003 - 1.030 LAB URINALYSIS - AUTOMATED METHOD 02/23/2025 11:02 AM [facility] pH, Urine 5.0 5.0 - 8.0 pH LAB URINALYSIS - AUTOMATED METHOD 02/23/2025 11:02 AM [facility] Leukocytes, Urine Small(A) Negative LAB URINALYSIS - AUTOMATED METHOD 02/23/2025 11:02 AM [facility] Nitrite, Urine Negative Negative LAB URINALYSIS - AUTOMATED METHOD 02/23/2025 11:02 AM [facility] Protein, Urine 300(A) <=Trace mg/dL LAB URINALYSIS - AUTOMATED METHOD 02/23/2025 11:02 AM [facility] Glucose, Urine Negative Negative mg/dL LAB URINALYSIS - AUTOMATED METHOD 02/23/2025 11:02 AM [facility] Ketones, Urine Negative Negative mg/dL LAB URINALYSIS - AUTOMATED METHOD 02/23/2025 11:02 AM [facility] Urobilinogen , Urine 0.2 0.2 - 1.0 mg/dL LAB URINALYSIS - AUTOMATED METHOD 02/23/2025 11:02 AM [facility] Bilirubin, Urine Small(A) Negative LAB URINALYSIS - AUTOMATED METHOD 02/23/2025 11:02 AM [facility] Blood, Urine Large(A) Negative LAB URINALYSIS - AUTOMATED METHOD 02/23/2025 11:02 AM [facility] RBC, Urine >4,000(H) 0 - 4 /HPF LAB URINALYSIS - AUTOMATED METHOD 02/23/2025 11:02 AM EDT [facility] WBC, Urine 17.2(H) 0 - 4 /HPF LAB URINALYSIS - AUTOMATED METHOD 02/23/2025 11:02 AM EDT [facility] Squamous Epithelial, Urine 20 0 - 60 /LPF LAB URINALYSIS - AUTOMATED METHOD 02/23/2025 11:02 AM EDT [facility] Bacteria, Urine Few(A) Negative /HPF LAB URINALYSIS - AUTOMATED METHOD 02/23/2025 11:02 AM EDT [facility] Hyaline Casts, Urine 3.2(H) 0 - 3 /LPF LAB URINALYSIS - AUTOMATED METHOD 02/23/2025 [facility] Urine Urine specimen from urethra / Unknown 02/22/2025 10:00 PM EDT 02/23/2025 9:32 AM EDT us Ollie Walter MD LAB URINE ORDERABLES Final Resul t Performing Organization Address City/[facility]/ZIP Co de Phone Number [facility] [address] [place] [address], [place] [phone] * Culture urine (02/22/2025 10:00 PM EDT) Culture, Urine No growth 02/24/2025 9:18 AM EDT [facility] Urine Urine specimen from urethra / Unknown 02/22/2025 10:00 PM EDT 02/23/2025 9:32 AM EDT us Ollie Walter MD LAB MICROBIOLOGY - GENERAL ORDER [place] Final Result Performing Organization Address City/[facility]/ZIP Co de Phone Number [facility] [address] [place] [address], [place] [phone] documented in this encounter Visit Diagnoses Diagnosis Urinary tract infection, site not specified documented in this encounter Care Teams Level Vial Marker Relationship Specialty Start Date End Date Ollie Walter MD [address] [place] [address] [address] [place] [address] PCP - General Geriatric Medicine 03/02/25 documented as of this encounter
--- OUTSIDE RECORDS SUMMARY | 2025-04-09 11:09 | XMS_ITS | Encounter Summary ---
Author Organization [facility] Address [address] [place] [address] Care Team Providers Care Cardiac Cath Lab Technologist Name Role Phone Ollie Walter MD Primary Care Provider [phone] Encounter Details Date Type Department Care Team (Late Contact Info) Description 02/09/2025 Lab Requisition [facility] - Main Lab 299 [facility] [place] [address] Ollie Walter MD [address] [place], [place] [phone] Thyrotoxicosis, unspecified without thyrotoxic crisis or storm [...] [facility] - [address] [place] [phone] documented as of this encounter Procedures Procedure Name Priority Date/Time Associated Diagnosis Comments COMPLETE BLOOD COUNT Routine 02/12/2025 5:25 AM EDT Thyrotoxicosis, unspecified without thyrotoxic crisis or storm BASIC METABOLIC PANEL Routine 02/12/2025 5:25 AM EDT Thyrotoxicosis, unspecified without thyrotoxic crisis or storm documented in this encounter Results * (ABNORMAL) Basic metabolic panel (02/12/2025 5:25 AM EDT) Sodium 138 133 - 145 mmol/L LAB CHEMISTRY METHOD 02/12/2025 10:54 AM [facility] Potassium 3.9 3.5 - 5.5 mmol/L LAB CHEMISTRY METHOD 02/12/2025 10:54 AM [facility] Chloride 97 96 - 110 mmol/L LAB CHEMISTRY METHOD 02/12/2025 10:54 AM [facility] CO2 36(H) 21 - 32 mmol/L LAB CHEMISTRY METHOD 02/12/2025 10:54 AM [facility] Anion Gap 5 3 - 11 LAB CHEMISTRY METHOD 02/12/2025 10:54 AM [facility] Glucose 70 70 - 100 mg/dL LAB CHEMISTRY METHOD 02/12/2025 10:54 AM [facility] BUN 13 5 - 25 mg/dL LAB CHEMISTRY METHOD 02/12/2025 10:54 AM [facility] Creatinine 0.93 0.50 - 1.10 mg/dL LAB CHEMISTRY METHOD 02/12/2025 10:54 AM [facility] eGFR 63 >=60 mL/min/1. 73m2 LAB CHEMISTRY METHOD 02/12/2025 10:54 AM [facility] Comment:Calculation based on the Chronic Kidney Disease Epidemiology Collaboration (CKD-EPI) equation refit without adjustment for race. BUN/Creatinine Ratio 14.0 LAB CHEMISTRY METHOD 02/12/2025 10:54 AM [facility] Calcium 8.7 8.5 - 10.5 mg/dL LAB CHEMISTRY METHOD 02/12/2025 10:54 AM [facility] Blood Venous blood specimen / Unknown Venipuncture / Unknown 02/12/2025 5:25 AM EDT 02/12/2025 9:51 AM EDT us Ollie Walter MD LAB BLOOD ORDERABLES Final Resul t [facility] [address] [place] [address], * (ABNORMAL) Complete blood count (02/12/2025 5:25 AM EDT) WBC 6.2 4.8 - 10.8 K/mcL LAB HEMETOLOGY METHOD 02/12/2025 10:[address] [facility] RBC 4.00 3.80 - 4.80 M/mcL LAB HEMETOLOGY METHOD 02/12/2025 10:40 AM [facility] Hemoglobin 11.5 11.5 - 16.0 g/dL LAB HEMETOLOGY METHOD 02/12/2025 10:[address] [facility] Hematocrit 38.5 35.0 - 47.0 % LAB HEMETOLOGY METHOD 02/12/2025 10:[address] [facility] MCV 97.2 79.0 - 98.0 FL LAB HEMETOLOGY METHOD 02/12/2025 10:[address] [facility] MCH 29.0 27.0 - 32.0 pcg LAB HEMETOLOGY METHOD 02/12/2025 10:[address] [facility] MCHC 29.9(L) 32.0 - 37.0 g/dL LAB HEMETOLOGY METHOD 02/12/2025 10:[address] [facility] RDW 12.5 11.0 - 15.0 % LAB HEMETOLOGY METHOD 02/12/2025 10:40 AM [facility] Platelets 177 130 - 400 K/mcL LAB HEMETOLOGY METHOD 02/12/2025 10:[address] [facility] MPV 11.5(H) 7.0 - 11.0 FL LAB HEMETOLOGY METHOD 02/12/2025 10:[address] [facility] NRBC 0.0 <1.0 % LAB HEMETOLOGY METHOD 02/12/2025 10:[address] [facility] NRBC Absolute 0.00 <0.10 K/mcL LAB HEMETOLOGY METHOD 02/12/2025 10:[address] [facility] Blood Venous blood specimen / Unknown Venipuncture / Unknown 02/12/2025 5:25 AM EDT 02/12/2025 9:51 AM EDT Ollie Walter MD LAB BLOOD ORDERABLES Final Resul t [facility] [address] [place] [address], documented in this encounter Visit Diagnoses Diagnosis Thyrotoxicosis, unspecified without thyrotoxic crisis or storm documented in this encounter Care Teams Cardiac Cath Lab Technologist Relationship Specialty Start Date End Date Ollie Walter MD [address] [place] [address] [address] [place] [address] PCP - General Geriatric Medicine 03/02/25 documented as of this encounter
--- OUTSIDE RECORDS SUMMARY | 2025-04-09 11:09 | XMS_ITS | Encounter Summary ---
Author Organization [facility] Address [address] [place] [address] Care Team Providers Care Psychologist Private Practice Name Role Phone Ollie Walter MD Primary Care Provider [phone] Encounter Details Date Type Department Care Team (Late Contact Info) Description 02/23/2025 Lab Requisition [facility] - Main Lab [address] [facility] [place] [address] Ollie Walter MD [address] [place], [place] [id number] Disorder of kidney and ureter, unspecified; Hematuria, unspecified Social History Tobacco Use Types Packs/Day Years [...] Description 07/17/2025 1:30 PM EST Ancillary Procedure [facility] [address] [place] [phone] documented as of this encounter Procedures Procedure Name Priority Date/Time Associated Diagnosis Comments CBC WITH AUTO DIFFERENTIAL Routine 02/23/2025 6:16 [...] of kidney and ureter, unspecified Hematuria, unspecified documented in this encounter Results * (ABNORMAL) CBC auto differential (02/23/2025 6:16 AM EDT) [facility] WBC 9.0 4.8 - 10.8 K/mcL LAB HEMETOLOGY METHOD 02/23/2025 10:15 AM [facility] RBC 3.90 3.80 - 4.80 M/mcL LAB HEMETOLOGY METHOD 02/23/2025 10:15 AM [facility] LAB Hemoglobin 11.3(L) 11.5 - 16.0 g/dL LAB HEMETOLOGY METHOD 02/23/2025 10:15 AM [facility] LAB Hematocrit 36.3 35.0 - 47.0 % LAB HEMETOLOGY METHOD 02/23/2025 10:15 AM [facility] LAB MCV 93.1 79.0 - 98.0 FL LAB HEMETOLOGY METHOD 02/23/2025 10:15 AM [facility] LAB MCH 29.0 27.0 - 32.0 pcg LAB HEMETOLOGY METHOD 02/23/2025 10:15 AM [facility] LAB MCHC 31.1(L) 32.0 - 37.0 g/dL LAB HEMETOLOGY METHOD 02/23/2025 10:15 AM [facility] RDW 12.6 11.0 - 15.0 % LAB HEMETOLOGY METHOD 02/23/2025 10:15 AM [facility] Platelets 214 130 - 400 K/mcL LAB HEMETOLOGY METHOD 02/23/2025 10:15 AM [facility] MPV 11.4(H) 7.0 - 11.0 FL LAB HEMETOLOGY METHOD 02/23/2025 10:15 AM [facility] NRBC 0.0 <1.0 % LAB HEMETOLOGY METHOD 02/23/2025 10:15 AM [facility] NRBC Absolute 0.00 <0.10 K/mcL LAB HEMETOLOGY METHOD 02/23/2025 10:15 AM [facility] Neutrophils Relative 75.7 % LAB HEMETOLOGY METHOD 02/23/2025 10:15 AM [facility] Lymphocytes Relative 11.2 % LAB HEMETOLOGY METHOD 02/23/2025 10:15 AM [facility] Monocytes Relative 10.3 % LAB HEMETOLOGY METHOD 02/23/2025 10:15 AM [facility] Eosinophils Relative 1.4 % LAB HEMETOLOGY METHOD 02/23/2025 10:15 AM [facility] Basophils Relative 0.3 % LAB HEMETOLOGY METHOD 02/23/2025 10:15 AM [facility] Immature Granulocytes Relative 1.1 % LAB HEMETOLOGY METHOD 02/23/2025 10:15 AM [facility] Neutrophils Absolute 6.82 1.50 - 7.00 K/mcL LAB HEMETOLOGY METHOD 02/23/2025 10:15 AM [facility] Lymphocytes Absolute 1.01 1.00 - 5.00 K/mcL LAB HEMETOLOGY METHOD 02/23/2025 10:15 AM [facility] Monocytes Absolute 0.93 0.20 - 1.00 K/mcL LAB HEMETOLOGY METHOD 02/23/2025 10:15 AM EDT [facility] LAB Eosinophils Absolute 0.13 0.00 - 0.50 K/[facility] LAB HEMETOLOGY METHOD 02/23/2025 10:15 AM EDT [facility] LAB Basophils Absolute 0.03 0.00 - 0.20 K/[facility] LAB HEMETOLOGY METHOD 02/23/2025 10:15 AM EDT [facility] LAB Immature Granulocytes Absolute 0.10(H) 0.00 - 0.03 K/[facility] LAB HEMETOLOGY METHOD 02/23/2025 10:15 AM EDT [facility] LAB Blood Venous blood specimen / Unknown Venipuncture / Unknown 02/23/2025 6:16 AM EDT 02/23/2025 9:01 AM EDT Ollie Walter MD LAB BLOOD ORDERABLES Final Resul t [facility] LAB [address] [place] [address], [place] [phone] * Triiodothyronine total (02/23/2025 6:16 AM EDT) T3, Total 75.28 60.00 - 181.00 ng/dL LAB CHEMISTRY METHOD 02/23/2025 11:11 AM EDT [facility] LAB Blood Venous blood specimen / Unknown Venipuncture / Unknown 02/23/2025 6:16 AM EDT 02/23/2025 9:01 AM EDT us Ollie Walter MD LAB BLOOD ORDERABLES Final Resul t [facility] [address] [place] [address], [place] [phone] * Thyroxine free (02/23/2025 6:16 AM EDT) Free T4 1.40 0.70 - 1.80 ng/dL LAB CHEMISTRY METHOD 02/23/2025 11:11 AM EDT [facility] LAB Blood Venous blood specimen / Unknown Venipuncture / Unknown 02/23/2025 6:16 AM EDT 02/23/2025 9:01 AM EDT Ollie Walter MD LAB BLOOD ORDERABLES Final Resul t Performing Organization Address City/[facility]/ZIP Co de Phone Number [facility] [address] [place] [address], [place] [phone] * Thyroid stimulating hormone (02/23/2025 6:16 AM EDT) TSH 0.73 0.40 - 4.00 mcIU/mL LAB CHEMISTRY METHOD 02/23/2025 11:12 AM EDT [facility] Blood Venous blood specimen / Unknown Venipuncture / Unknown 02/23/2025 6:16 AM EDT 02/23/2025 9:01 AM EDT Ollie Walter MD LAB BLOOD ORDERABLES Final Resul t Performing Organization Address [facility] Co de Phone Number [facility] [address] [place] [address], [place] [phone] documented in this encounter Visit Diagnoses Diagnosis Disorder of kidney and ureter, unspecified Hematuria, unspecified documented in this encounter Care Teams Psychologist Private Practice Relationship Specialty Start Date End Date Ollie Walter MD [address] [place] [address] [address] [place] [address] PCP - General Geriatric Medicine 03/02/25 documented as of this encounter
--- OUTSIDE RECORDS SUMMARY | 2025-04-09 11:09 | XMS_ITS | Clinical Summary ---
Author Organization [email or web address] Address [address] [place] [address] [address] [place] [address] Care Team Providers Care Airline Pilot Name Role Phone Unavailable Primary Care Provider [...] Take 40 mg by mouth. 4 Active acetaminophen (Tylenol Extra Strength) 500 MG tablet See Instructions, PRN as needed for pain, 1-2 tablet By Mouth Every 6 hours, 0 Refills, Maintenance, 08/09/16 12:48:20 PM EST 7 Active Cholecalciferol (Vitamin D3) 50 MCG (2000 UT) chewable tablet Chew 1,000 Int'l Units. 7 Active chlorthalidone (Hygroton) 25 MG tablet Take by mouth Once per day. Active amLODIPine (Norvasc) 5 MG tablet Take by mouth Once per day. Active Active Problems No known active problems Social [...] series) 2020 COVID-19 Vaccine (2 - season) 2025 07/20/2020 Influenza Vaccine (#1) 2025 , 04/06/2023, 05/06/2022, Additional history exists Tobacco Screening 11/15/2025 11/15/2024 Dental X-Ray: Full Mouth 11/26/2026 11/26/2023 Pneumococcal [...] Procedure Name Priority Date/Time Associated Diagnosis Comments PANORAMIC RADIOGRAPHIC IMAGE Routine 11/26/2023 11:00 AM EDT from Last 3 Months or Most Recently Relevant to Health Maintenance Insurance DENTAL - [facility] [place] [id number]
--- OUTSIDE RECORDS SUMMARY | 2025-04-09 11:09 | XMS_ITS ---
Author Name [facility] Organization Unknown Care Team Organization Name Specialty Phone Email Start Date End Da te [facility] Jeffrey Cesar Primary Care 12/11/202202/20 [facility] Soraya Real Primary Care 09/09/2022 024 [facility] Termed, PROVIDER Primary Care 05/12/202202/02
--- OUTSIDE RECORDS SUMMARY | 2025-04-09 11:09 | XMS_ITS | Encounter Summary ---
Author Organization [facility] Address [address] [place] [address] Care Team Providers Care Tension Worker Name Role Phone Ollie Walter MD Primary Care Provider Encounter Details Date Type Department Care Team ([facility] Contact Info) Description 03/02/2025 Lab Requisition [facility] - Main Lab 299 [facility] [place] [address] Ollie Walter MD [address] [place], [place] [phone] Thyrotoxicosis, unspecified without thyrotoxic crisis or storm [...] Encounters Date Type Department Care Team (Late Contact Info) Description 07/17/2025 1:30 PM EST Ancillary Procedure [facility] - [address] [place] [address] documented as of this encounter Visit Diagnoses Diagnosis Thyrotoxicosis, unspecified without thyrotoxic crisis or storm documented in this encounter Care Teams Tension Worker Relationship Specialty Start Date End Date Ollie Walter MD [address] [place], [place] [id number] PCP - General Geriatric Medicine 03/02/25 documented as of this encounter
== END 2025-04-09 10:27 | disposition home or self-care (01) ==
LOC: HO.HSMS 09:43
PROVIDERS: PCP Internal Medicine; Visit Provider Physician Assistant Medical
DX: G47.19 Other hypersomnia (principal); G47.9 Sleep disorder, unspecified; R40.0 Somnolence; R68.89 Other general symptoms and signs; R41.89 Other symptoms and signs involving cognitive functions and awareness; R13.11 Dysphagia, oral phase; F10.20 Alcohol dependence, uncomplicated; R26.9 Unspecified abnormalities of gait and mobility
CPT/HCPCS: 99214

== ENCOUNTER 2025-05-21 06:24 | Day surgery (SDC) | payer OTHER, SELFPAY ==
--- NOTE | 2025-05-16 14:21 | HO.ANESPROP2 ---
Documented by User: Dianne Hathaway NP 05/16/25 14:43 HPI - Anesthesia Eval Consult details Narrative: 79 yr old female for BILATERAL C2-3,C3-4,Cervical Facet Injection,RIGHT C5-6 Facet Injection Hospitalized at [facility] 01/2025 for sepsis, acute hypoxic respiratory failure, treated for pneumonia; noted to have paroxysmal afib, saw PVC in follow up 04/05/25, repeat echo was ordered to better assess LV function & follow up on known aortic dilitation noted on 2020 echo. ?Thyrotoxosis at 01/2025 [facility] hospitalization: repeat thyroid labs including TSH, free T3, free T4 done 02/23/25, TSH 0.73, free T4 1.40, T3 normal ranage 75.28 [facility] Active Problems Active Problems: All Active Problems Neck pain (Acute) Balance problem due to vestibular dysfunction (Acute) Excessive daytime sleepiness (Acute) Dysphagia (Acute) Cognitive decline (Acute) Forgetfulness (Acute) Intermittent sleepiness (Acute) COPD with emphysema (Acute) GERD (gastroesophageal reflux disease) (Acute) Tinnitus (Acute) Hearing loss (Acute) Osteoporosis (Acute) Hyperlipidemia (Acute) Depression (Acute) HTN (hypertension) (Acute) CKD (chronic kidney disease) (Acute) Pre-diabetes (Acute) Sleep disorder (Acute) 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 (Acute) Gait disorder, alcoholic (Acute) Numbness and tingling in both hands (Acute) Numbness and tingling of both feet (Acute ~10/18/24) Past Medical History Medical History On anticoagulant therapy Atrial fibrillation IBS (irritable bowel syndrome) Arthritis COPD with emphysema GERD (gastroesophageal reflux disease) Tinnitus Hearing loss Osteoporosis Hyperlipidemia Depression HTN (hypertension) CKD (chronic kidney disease) Pre-diabetes Alcoholism Traumatic brain injury Sleep disorder 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 Mother No problems noted. Surgical History Surgical History Hx of section H/O wisdom tooth extraction Social History Social History Household Members: Other Housing: Assisted Living Facility Are you a primary manager home healthcare to a significant other at home: No Do you presently have visiting nurse or other home services: No Alcohol intake: former Comment: Heavy drinker in the past- hasn't had a drink since 2008 Patient Tobacco Use Status: Former Tobacco user Years Smoked: Quit in 2008 after 10 years of smoking Have you been hit, kicked, punched, or otherwise hurt by someone within the past year? If so, by whom?: No Are you DNR?: No Advance Directives: No Advance Directives Information Provided: Yes Meds Allergies Allergy/AdvReac Type Severity Reaction Status Date / Time No Known Allergies Allergy Verified 04/09/25 09:48 Home Medications ?Medication ?Instructions ?Recorded ?Confirmed ?Last Taken ?Type albuterol sulfate 90 mcg/actuation 2 puff inhalation Q6H PRN 12/01/23 05/17/25 Unknown History aerosol inhaler Shortness Of Breath Or Wheezing hydralazine 10 mg tablet 30 mg PO BID 12/01/23 05/17/25 Unknown History metoprolol succinate 25 mg 25 mg PO DAILY 12/01/23 05/17/25 Unknown History tablet,extended release 24 hr pravastatin 20 mg tablet 20 mg PO DAILY 10/18/24 05/17/25 Unknown History trazodone 50 mg tablet 75 mg PO BEDTIME PRN Insomnia 04/13/25 05/17/25 Unknown History acetaminophen 325 mg tablet 650 mg PO TID 05/17/25 05/17/25 Unknown History apixaban 5 mg tablet 5 mg PO BID 05/17/25 05/17/25 Unknown History cetirizine 10 mg tablet 10 mg PO DAILY 05/17/25 05/17/25 Unknown History chlorthalidone 25 mg tablet 25 mg PO DAILY 05/17/25 05/17/25 Unknown History cholecalciferol (vitamin D3) 50 50 mcg PO DAILY 05/17/25 05/17/25 Unknown History mcg (2,000 unit) capsule (Vitamin D3) duloxetine 30 mg capsule,delayed 30 mg PO DAILY 05/17/25 05/17/25 Unknown History release gabapentin 600 mg tablet 300 mg PO BID 05/17/25 05/17/25 Unknown History melatonin 5 mg tablet 10 mg PO BEDTIME 05/17/25 05/17/25 Unknown History pantoprazole 40 mg tablet,delayed 40 mg PO DAILY 05/17/25 05/17/25 Unknown History release sennosides 8.6 mg tablet (senna) 8.6 mg PO DAILY 05/17/25 05/17/25 Unknown History Exam Pertinent Lab Results Pertinent Lab Results: Labs done at [facility] 02/23/25 BMP sodium 138 Potassium 3.5 glucose 69 BUN 19 Creat 1.09 CBC WBC 9.1 RBC 3.90 Hgb 12.1 Hct 36.6 Platelets 249 Narrative Narrative: EKG 04/05/25 Sinus bradycardia, rate 58 Incomplete right bundle branch block Cannot rule out Anterior infarct , age undetermined T wave abnormality, consider inferolateral ischemia Abnormal ECG When compared with ECG of 11-APR-2021 16:38, ST no longer depressed in Anterior leads T wave inversion now evident in Inferior leads T wave inversion less evident in Anterolateral leads Confirmed by CON MERRITT ([id number]) on 04/09/2025 8:57:56 AM ECHO 01/31/25 The left ventricle is poorly visualized. The left ventricular size is normal. The left ventricular wall thickness is mildly increased. The LV systolic function is probably normal. Canot assess LVEF or wall motion. Grade I mild diastolic dysfunction with impaired LV relaxation. The aortic valve is poorly visualized. There is no aortic regurgitation. There is no aortic stenosis. The right ventricle is poorly visualized. The right ventricular wall is hypertrophied. The pulmonary artery systolic pressure estimation is 45-50% mmHg. There is pulmonary HTN There is a trivial circumferential pericardial effusion. There is an epicardial fat pad present. 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 Mother No problems noted. Family history of problems with anesthesia: No Surgical History Surgical History Hx of section H/O wisdom tooth extraction History of Problems with Anesthesia: No Social History Social History Household Members: Other Housing: Assisted Living Facility Are you a primary manager home healthcare to a significant other at home: No Do you presently have visiting nurse or other home services: No Alcohol intake: former Comment: Heavy drinker in the past- hasn't had a drink since 2008 Patient Tobacco Use Status: Former Tobacco user Years Smoked: Quit in 2008 after 10 years of smoking Have you been hit, kicked, punched, or otherwise hurt by someone within the past year? If so, by whom?: No Are you DNR?: No Advance Directives: No Advance Directives Information Provided: Yes Meds Allergies Allergy/AdvReac Type Severity Reaction Status Date / Time No Known Allergies Allergy Verified 04/09/25 09:48 Home Medications ?Medication ?Instructions ?Recorded ?Confirmed ?Last Taken ?Type albuterol sulfate 90 mcg/actuation 2 puff inhalation Q6H PRN 12/01/23 05/17/25 Unknown History aerosol inhaler Shortness Of Breath Or Wheezing hydralazine 10 mg tablet 30 mg PO BID 12/01/23 05/17/25 Unknown History metoprolol succinate 25 mg 25 mg PO DAILY 12/01/23 05/17/25 Unknown History tablet,extended release 24 hr pravastatin 20 mg tablet 20 mg PO DAILY 10/18/24 05/17/25 Unknown History trazodone 50 mg tablet 75 mg PO BEDTIME PRN Insomnia 04/13/25 05/17/25 Unknown History acetaminophen 325 mg tablet 650 mg PO TID 05/17/25 05/17/25 Unknown History apixaban 5 mg tablet 5 mg PO BID 05/17/25 05/17/25 Unknown History cetirizine 10 mg tablet 10 mg PO DAILY 05/17/25 05/17/25 Unknown History chlorthalidone 25 mg tablet 25 mg PO DAILY 05/17/25 05/17/25 Unknown History cholecalciferol (vitamin D3) 50 50 mcg PO DAILY 05/17/25 05/17/25 Unknown History mcg (2,000 unit) capsule (Vitamin D3) duloxetine 30 mg capsule,delayed 30 mg PO DAILY 05/17/25 05/17/25 Unknown History release gabapentin 600 mg tablet 300 mg PO BID 05/17/25 05/17/25 Unknown History melatonin 5 mg tablet 10 mg PO BEDTIME 05/17/25 05/17/25 Unknown History pantoprazole 40 mg tablet,delayed 40 mg PO DAILY 05/17/25 05/17/25 Unknown History release sennosides 8.6 mg tablet (senna) 8.6 mg PO DAILY 05/17/25 05/17/25 Unknown History Exam Airway Mallampati Class: III TM Dist: >3cm Neck ROM: Limited Loose/Missing/Broken Teeth: No Heart: RRR Lungs: CTA Assessment and Plan Assessment Anesthesia Assessment: Anesthesia Plan Discussed and Chart Reviewed Final Anesthetic Review Family History of Problems with Anesthesia: No History of Problems with Anesthesia: No NPO: Yes ASA Class: III Final Preanesthetic Review: No Changes in Pt Med Stat, Meds/Allgs Chart Reviewed, Consent Obtained/Reviewed and Anes Risks/Benef Reviewed Patient Risk: Intermediate Procedure Risk: Low Anesthetic Plan Anesthetic Plan: MAC: Disposition: Standard PACU
--- OUTSIDE RECORDS SUMMARY | 2025-05-16 15:57 | XMS_ITS | Encounter Summary ---
Author Organization [facility] Address [address] [place] [address] Care Team Providers Care Host Name Role Phone Ollie Walter MD Primary Care Provider [phone] Encounter Details Date Type Department Care Team (Late Contact Info) Description 02/24/2025 Lab Requisition [facility] - Main Lab [address] [facility] [place] [address] Ollie Walter MD [address] [place], [place] [id number] Thyrotoxicosis, unspecified without thyrotoxic crisis or storm Social History Tobacco Use Types Packs/Day Years Used Date Smoking Tobacco: Former Cigarettes 1 Q uit: 06/09/2009 Smokeless Tobacco: Never Alcohol [...] Description 07/17/2025 1:30 PM EST Ancillary Procedure [facility] - [address] [place] [id number] documented as of this encounter Procedures Procedure [...] mmol/L LAB CHEMISTRY METHOD 02/26/2025 11:58 AM [facility] Potassium 3.5 3.5 - 5.5 mmol/L LAB CHEMISTRY METHOD 02/26/2025 11:58 AM [facility] Chloride 96 96 - 110 mmol/L LAB CHEMISTRY METHOD 02/26/2025 11:58 AM [facility] CO2 33(H) 21 - 32 mmol/L LAB CHEMISTRY METHOD 02/26/2025 11:58 AM [facility] Anion Gap 9 3 - 11 LAB CHEMISTRY METHOD 02/26/2025 11:58 AM [facility] Glucose 69(L) 70 - 100 mg/dL LAB CHEMISTRY METHOD 02/26/2025 11:58 AM [facility] BUN 14 5 - 25 mg/dL LAB CHEMISTRY METHOD 02/26/2025 11:58 AM [facility] Creatinine 1.09 0.50 - 1.10 mg/dL LAB CHEMISTRY METHOD 02/26/2025 11:58 AM [facility] eGFR 52(L) >=60 mL/min/1. 73m2 LAB CHEMISTRY METHOD 02/26/2025 11:58 AM [facility] Comment:Calculation based on the Chronic Kidney Disease Epidemiology Collaboration (CKD-EPI) equation refit without adjustment for race. BUN/Creatinine Ratio 12.8 LAB CHEMISTRY METHOD 02/26/2025 11:58 AM [facility] Calcium 8.6 8.5 - 10.5 mg/dL LAB CHEMISTRY METHOD 02/26/2025 11:58 AM [facility] Blood Venous blood specimen / Unknown Venipuncture / Unknown 02/26/2025 5:28 AM EDT 02/26/2025 10:06 AM EDT us Ollie Walter MD LAB BLOOD ORDERABLES Final Resul t [facility] [address] [place] [address], * (ABNORMAL) Complete blood count (02/26/2025 5:28 AM EDT) [facility] WBC 9.7 4.8 - 10.8 K/mcL LAB HEMETOLOGY METHOD 02/26/2025 11:31 AM EDT [facility] RBC 3.90 3.80 - 4.80 M/mcL LAB HEMETOLOGY METHOD 02/26/2025 11:31 AM [facility] Hemoglobin 12.1 11.5 - 16.0 g/dL LAB HEMETOLOGY METHOD 02/26/2025 11:31 AM [facility] Hematocrit 36.6 35.0 - 47.0 % LAB HEMETOLOGY METHOD 02/26/2025 11:31 AM [facility] MCV 93.1 79.0 - 98.0 FL LAB HEMETOLOGY METHOD 02/26/2025 11:31 AM [facility] MCH 30.8 27.0 - 32.0 pcg LAB HEMETOLOGY METHOD 02/26/2025 11:31 AM [facility] MCHC 33.1 32.0 - 37.0 g/dL LAB HEMETOLOGY METHOD 02/26/2025 11:31 AM T [facility] RDW 12.7 11.0 - 15.0 % LAB HEMETOLOGY METHOD 02/26/2025 11:31 AM [facility] Platelets 249 130 - 400 K/mcL LAB HEMETOLOGY METHOD 02/26/2025 11:31 AM EDT [facility] MPV 11.7(H) 7.0 - 11.0 FL LAB HEMETOLOGY METHOD 02/26/2025 11:31 AM EDT [facility] NRBC 0.0 <1.0 % [facility] 02/26/2025 11:31 AM EDT [facility] NRBC Absolute 0.00 <0.10 K/mcL LAB HEMETOLOGY METHOD 02/26/2025 11:31 AM EDT [facility] Blood Venous blood specimen / Unknown Venipuncture / Unknown 02/26/2025 5:28 AM EDT 02/26/2025 10:06 AM EDT us Ollie Walter MD LAB BLOOD ORDERABLES Final Resul t [facility] [address] [place] [address], documented in this encounter Visit Diagnoses Diagnosis Thyrotoxicosis, unspecified without thyrotoxic crisis or storm documented in this encounter Care Teams Host Relationship Specialty Start Date End Date Ollie Walter MD [address] [place], [place] [id number] [place] [address] PCP - General Geriatric Medicine 03/02/25 documented as of this encounter
--- OUTSIDE RECORDS SUMMARY | 2025-05-16 15:57 | XMS_ITS | Clinical Summary ---
Author Organization [facility] Address [address] [place] [address] Care Team Providers Care Regional Maintenance Manager Name Role Phone Unavailable Primary Care Provider [...] Examination 07/28/2024 07/26/2023 Hypertension Screening (#1) 08/25/2024 [id number] ( - 2024- season) 2025 Imm-Influenza (#1) 2025 Procedures Procedure Name Priority Date/Time Associated Diagnosis Comments COMP ORAL EVALUATION - NEW/ESTABLISHED PATIENT Routine 07/26/2023 11:00 AM EST Caries from Last 3 Months or Most Recently Relevant to Health Maintenance Insurance GENERIC - DENTAL Member Subscriber Plan / Payer (Ef fective 2023-Present) Name:Hannah Lane Member ID:[id number] Relation to Subscriber:Self Name:Hannah Lane Subscriber ID:[id number] Payer ID:[id number] Group ID:Not on file Type:Indemnity Address: [facility] [address] [address] [place] [address]
--- OUTSIDE RECORDS SUMMARY | 2025-05-16 15:57 | XMS_ITS | Encounter Summary ---
Author Organization [facility] Address [address] [place] [address] Care Team Providers Care Lag Screwer Name Role Phone Ollie Walter MD Primary Care Provider [phone] Encounter Details Date Type Department Care Team ([facility] Contact Info) Description 03/02/2025 Lab Requisition [facility] - Main Lab [address] [facility] [place] [address] Ollie Walter MD [address] [place], [place] [id number] Thyrotoxicosis, unspecified without thyrotoxic crisis or storm [...] Description 07/17/2025 1:30 PM EST Ancillary Procedure [facility] - [address] [place] [address] documented as of this encounter Visit Diagnoses Diagnosis Thyrotoxicosis, unspecified without thyrotoxic crisis or storm documented in this encounter Care Teams Lag Screwer Relationship Specialty Start Date End Date Ollie Walter MD [address] [place], [place] [id number] PCP - General Geriatric Medicine 03/02/25 documented as of this encounter
--- OUTSIDE RECORDS SUMMARY | 2025-05-16 15:57 | XMS_ITS | Clinical Summary ---
Author Organization [address] Address [address] [place] [phone] Phone Care Team Providers Care Boilermaker Assembly And Erection Name Role Phone Ollie Walter MD Primary Care Provider [phone] Allergies No known active allergies Medications pantoprazole [...] mouth 2 (two) times a day. Active Active Problems Problem Noted Date Diagnosed Date TBI (traumatic brain injury) ([facility] V24, [facility]/ CC V28) 03/13/2025 Sinus tachycardia 03/13/2025 Paroxysmal atrial flutter ([facility] V24, CMS/HCC V28) 03/13/2025 Encounters Date Type Department Care Team Description 04/06/2025 Telephone [facility] Cardiology [facility] [address] [place] [address] Devorah Tejada NP 04/05/2025 12:40 PM EDT Office Visit [facility] [address] [address] [place] [address] Devorah Tejada NP Atrial fibrillation, unspecified type ([facility] V24, [facility] V28) (Primary Dx); Hypertension, unspecified type 03/02/2025 Lab Requisition [facility] Lab [address] [place] [address] Ollie Walter MD Thyrotoxicosis, unspecified without thyrotoxic crisis or storm 02/24/2025 Lab Requisition [facility] Lab [address] [place] [address] Ollie Walter MD Thyrotoxicosis, unspecified without thyrotoxic crisis or storm 02/23/2025 Lab Requisition [facility] Lab [address] [place] [address] Ollie Walter MD Disorder of kidney and ureter, unspecified; Hematuria, unspecified 02/23/2025 Lab Requisition [facility] Lab [address] [place] [address] Ollie Walter MD Urinary tract infection, site not specified 02/18/2025 Lab Requisition [facility] - Main Lab [address] [facility] [place] [address] Ollie Walter MD Thyrotoxicosis, unspecified without thyrotoxic crisis or storm from Last 3 Months Surgical History Surgery Date Site/Laterality Comments OTHER SURGICAL HISTORY 2008 PROCEDURE: AL STRTCTC IMPLTJ NSTIM ELTRD W/O RECORD 1ST ARRAY; COMMENT: decrompression for traumatic brain injury COLONOSCOPY 10/16/13 PROCEDURE: HISTORICAL COLONOSCOPY; COMMENT: normal; base of cecum not reached; repeat in 5 yrs under propofol Medical History Medical History Date Comments HTN (hypertension) DX:HTN (hyper tension) Depression DX:Depression Hypercholesterolemia DX:Hypercho lesterolemia Osteoporosis DX:Osteoporosis Traumatic brain injury ([facility] V24, [facility] V28) DX:Traumatic brain injury (H CC); COMMENT: fall from stair, hitting head on concrete, 2008. went through rehab in [place] since. Prediabetes 07/21/2020 DX:Prediabetes; COMMENT: 04/20 A1C 6.1 Hyperthyroidism Thyrotoxicosis Nausea and vomiting Acute renal insufficiency Gall bladder stones Dysphagia Obesity, Class I, BMI 30-34.9 Traumatic intracranial hemor rhage ([facility] V24, [facility] V28) Seborrhea CKD (chronic kidney disease) , stage III ([facility] V24, [facility] V28) Insomnia Family History Medical History Relation Name Comments Other cancer Brother lymphoma, of Hypertension Father Stroke Father Breast cancer Maternal Grandmother Myelodysplastic syndrome Mother Other: no DM Other Relation Name Status Comments Brother Father Other Maternal Grandmother Mother Other Social History Tobacco Use Types Packs/Day Years Used Date Smoking Tobacco: Former Cigarettes 1 Q uit: 06/09/2009 Smokeless Tobacco: Never Tobacco [...] Description 07/17/2025 1:30 PM EST Ancillary Procedure [facility] - [address] [place] [address] Health Maintenance Due Date Last [...] 04/05/2023 04/05/2018 Depression Screening 07/05/2024 COVID-19 Vaccine (2 - season) 2025 07/20/2020 [...] 1:23 PM EDT Atrial fibrillation, unspecified type ([facility] V24, [facility] V28) BASIC METABOLIC PANEL Routine 02/26/2025 5:28 [...] GEMUSE QTc 443 ms GEMUSE P Wave Erwin 72 degrees GEMUSE R Erwin 52 degrees GEMUSE T Erwin -175 degrees GEMUSE ECG Interpretation Sinus bradycardia [...] 5:28 AM EDT) Only the most recent of2 resultswithin the time period is included. [facility] Signature WBC 9.7 4.8 - 10.8 K/mcL LAB HEMETOLOGY METHOD 02/26/2025 11:31 AM [facility] LAB RBC 3.90 3.80 - 4.80 M/mcL LAB [facility] Hemoglobin 12.1 11.5 - 16.0 g/dL LAB HEMETOLOGY METHOD 02/26/2025 11:31 AM [facility] LAB Hematocrit 36.6 35.0 - 47.0 % LAB HEMETOLOGY METHOD 02/26/2025 11:31 AM [facility] LAB MCV 93.1 79.0 - 98.0 FL LAB HEMETOLOGY METHOD [facility] MCH 30.8 27.0 - 32.0 pcg LAB HEMETOLOGY METHOD 02/26/2025 11:31 AM [facility] LAB MCHC 33.1 32.0 - 37.0 g/dL LAB HEMETOLOGY METHOD 02/26/2025 11:31 AM [facility] LAB RDW 12.7 11.0 - 15.0 % LAB HEMETOLOGY METHOD 02/26[facility]2025 11[facility] Platelets 249 130 - 400 K/mcL LAB HEMETOLOGY METHOD 02/26/2025 11:31 AM [facility] LAB MPV 11.7(H) 7.0 - 11.0 FL LAB HEMETOLOGY METHOD 02/26/2025 11:31 AM [facility] LAB NRBC 0.0 <1.0 % LAB HEMETOLOGY METHOD 02/26/2025 11:31 AM EDT [facility] LAB NRBC Absolute 0.00 <0.10 K/mcL LAB HEMETOLOGY METHOD 02/26/2025 11:31 AM T [facility] LAB Blood Venous blood specimen / Unknown Venipuncture / Unknown 02/26/2025 5:28 AM EDT 02/26/2025 10:06 AM EDT us Ollie Walter MD LAB BLOOD ORDERABLES Final Resul t [facility] [address] [place] [address], * (ABNORMAL) Basic metabolic panel (02/26/2025 5:28 AM EDT) Only the most recent of2 resultswithin the time period is included. Sodium 138 133 - 145 mmol/L LAB CHEMISTRY METHOD 02/26/2025 11:58 AM [facility] LAB Potassium 3.5 3.5 - 5.5 mmol/L LAB CHEMISTRY METHOD 02/26/2025 11:58 AM [facility] LAB Chloride 96 96 - 110 mmol/L LAB CHEMISTRY METHOD 02/26/2025 11:58 AM [facility] LAB CO2 33(H) 21 - 32 mmol/L LAB CHEMISTRY METHOD 02/26/2025 11:58 AM [facility] LAB Anion Gap 9 3 - 11 LAB CHEMISTRY METHOD 02/26/2025 11:58 AM [facility] LAB Glucose 69(L) 70 - 100 mg/dL LAB CHEMISTRY METHOD 02/26/2025 11:58 AM [facility] LAB BUN 14 5 - 25 mg/dL LAB CHEMISTRY METHOD 02/26/2025 11:58 AM [facility] LAB Creatinine 1.09 0.50 - 1.10 mg/dL LAB CHEMISTRY METHOD 02/26/2025 11:58 AM EDT [facility] LAB eGFR 52(L) >=60 mL/min/1. 73m2 LAB CHEMISTRY METHOD 02/26/2025 11:58 AM EDT [facility] Comment:Calculation based on the Chronic Kidney Disease Epidemiology Collaboration (CKD-EPI) equation refit without adjustment for race. BUN/Creatinine Ratio 12.8 LAB CHEMISTRY METHOD 02/26/2025 11:58 AM EDT [facility] Calcium 8.6 8.5 - 10.5 mg/dL LAB CHEMISTRY METHOD 02/26/2025 11:58 AM T [facility] Blood Venous blood specimen / Unknown Venipuncture / Unknown 02/26/2025 5:28 AM EDT 02/26/2025 10:06 AM EDT us Ollie Walter MD LAB BLOOD ORDERABLES Final Resul t [facility] [address] [place] [address], [place] [phone] * (ABNORMAL) CBC auto differential (02/23/2025 6:16 AM EDT) WBC 9.0 4.8 - 10.8 K/mcL LAB HEMETOLOGY METHOD 02/23/2025 10:15 AM T [facility] RBC 3.90 3.80 - 4.80 M/mcL LAB HEMETOLOGY METHOD 02/23/2025 10:15 AM EDT [facility] Hemoglobin 11.3(L) 11.5 - 16.0 g/dL LAB HEMETOLOGY METHOD 02/23/2025 10:15 AM T [facility] Hematocrit 36.3 35.0 - 47.0 % LAB HEMETOLOGY METHOD 02/23/2025 10:15 AM EDT [facility] MCV 93.1 79.0 - 98.0 FL LAB HEMETOLOGY METHOD 02/23/2025 10:15 AM EDT [facility] MCH 29.0 27.0 - 32.0 pcg LAB HEMETOLOGY METHOD 02/23/2025 10:15 AM T [facility] LAB MCHC 31.1(L) 32.0 - 37.0 g/dL LAB HEMETOLOGY METHOD 02/23/2025 10:15 AM [facility] LAB RDW 12.6 11.0 - 15.0 % LAB HEMETOLOGY METHOD 02/23/2025 10:15 AM EDT [facility] Platelets 214 130 - 400 K/mcL LAB HEMETOLOGY METHOD 02/23/2025 10:15 AM [facility] LAB MPV 11.4(H) 7.0 - 11.0 FL LAB HEMETOLOGY METHOD 02/23/2025 10:15 AM [facility] LAB NRBC 0.0 <1.0 % LAB HEMETOLOGY METHOD 02/23/2025 10:15 AM [facility] LAB NRBC Absolute 0.00 <0.10 K/mcL LAB HEMETOLOGY METHOD 02/23/2025 10:15 AM [facility] LAB Neutrophils Relative 75.7 % LAB HEMETOLOGY METHOD 02/23/2025 10:15 AM [facility] LAB Lymphocytes Relative 11.2 % LAB HEMETOLOGY METHOD 02/23/2025 10:15 AM [facility] Monocytes Relative 10.3 % LAB HEMETOLOGY METHOD 02/23/2025 10:15 AM [facility] LAB Eosinophils Relative 1.4 % LAB HEMETOLOGY METHOD 02/23/2025 10:15 AM [facility] Basophils Relative 0.3 % LAB HEMETOLOGY METHOD 02/23/2025 10:15 AM [facility] LAB Immature Granulocytes Relative 1.1 % LAB HEMETOLOGY METHOD 02/23/2025 10:15 AM EDT [facility] Neutrophils Absolute 6.82 1.50 - 7.00 K/[facility] LAB HEMETOLOGY METHOD 02/23/2025 10:15 AM EDT [facility] Lymphocytes Absolute 1.01 1.00 - 5.00 K/mcL LAB HEMETOLOGY METHOD 02/23/2025 10:15 AM EDT [facility] Monocytes Absolute 0.93 0.20 - 1.00 K/[facility] LAB HEMETOLOGY METHOD 02/23/2025 10:15 AM EDT [facility] Eosinophils Absolute 0.13 0.00 - 0.50 K/[facility] LAB HEMETOLOGY METHOD 02/23/2025 10:15 AM EDT [facility] Basophils Absolute 0.03 0.00 - 0.20 K/mcL LAB HEMETOLOGY METHOD 02/23/2025 10:15 AM EDT [facility] Immature Granulocytes Absolute 0.10(H) 0.00 - 0.03 K/[facility] LAB HEMETOLOGY METHOD 02/23/2025 10:15 AM EDT [facility] Blood Venous blood specimen / Unknown Venipuncture / Unknown 02/23/2025 6:16 AM EDT 02/23/2025 9:01 AM EDT us Ollie Walter MD LAB BLOOD ORDERABLES Final Resul t [facility] [address] [place] [address], * Triiodothyronine total (02/23/2025 6:16 AM EDT) T3, Total 75.28 60.00 - 181.00 ng/dL LAB CHEMISTRY METHOD 02/23/2025 11:11 AM EDT [facility] Blood Venous blood specimen / Unknown Venipuncture / Unknown 02/23/2025 6:16 AM EDT 02/23/2025 9:01 AM EDT us Ollie Walter MD LAB BLOOD ORDERABLES Final Resul t Performing Organization Address City/[facility]/ZIP Co de Phone Number [facility] [address] [place] [address], [place] [phone] * Thyroid stimulating hormone (02/23/2025 6:16 AM EDT) TSH 0.73 0.40 - 4.00 mcIU/mL LAB CHEMISTRY METHOD 02/23/2025 11:12 AM EDT [facility] Blood Venous blood specimen / Unknown Venipuncture / Unknown 02/23/2025 6:16 AM EDT 02/23/2025 9:01 AM EDT us Ollie Walter MD LAB BLOOD ORDERABLES Final Resul t Performing Organization Address [facility] Co de Phone Number [facility] [address] [place] [address], [place] [phone] * Thyroxine free (02/23/2025 6:16 AM EDT) Free T4 1.40 0.70 - 1.80 ng/dL LAB CHEMISTRY METHOD 02/23/2025 11:11 AM EDT [facility] Blood Venous blood specimen / Unknown Venipuncture / Unknown 02/23/2025 6:16 AM EDT 02/23/2025 9:01 AM EDT us Ollie Walter MD LAB BLOOD ORDERABLES Final Resul t Performing Organization Address City/[facility]/ZIP Co de Phone Number [facility] [address] [place] [address], [place] [phone] * (ABNORMAL) Urinalysis with reflex microscopic (02/22/2025 10:00 PM EDT) Specific [place] Urine 1.019 1.003 - 1.030 LAB URINALYSIS [...] [facility] WBC, Urine 17.2(H) 0 - 4 /HPF LAB URINALYSIS - AUTOMATED METHOD 02/23/2025 11:02 AM [facility] LAB Squamous Epithelial, Urine 20 0 - 60 /LPF LAB URINALYSIS - AUTOMATED METHOD 02/23/2025 11:02 AM EDT [facility] Bacteria, Urine Few(A) Negative /HPF LAB URINALYSIS - AUTOMATED METHOD 02/23/2025 11:02 AM EDT [facility] Hyaline Casts, Urine 3.2(H) 0 - 3 /LPF LAB URINALYSIS - AUTOMATED METHOD 02/23/2025 11:02 AM EDT [facility] Urine Urine specimen from urethra / Unknown 02/22/2025 10:00 PM EDT 02/23/2025 9:32 AM EDT us Ollie Walter MD LAB URINE ORDERABLES Final Resul t Performing Organization Address [facility]/ZIP Co de Phone Number [facility] [address] [place] [address], [place] [phone] * Culture urine (02/22/2025 10:00 PM EDT) Culture, Urine No growth 02/24/2025 9:18 AM EDT [facility] Urine Urine specimen from urethra / Unknown 02/22/2025 10:00 PM EDT 02/23/2025 9:32 AM EDT us Ollie Walter MD LAB MICROBIOLOGY - GENERAL ORDER [place] Final Result Performing Organization Address [facility]/ZIP Co de Phone Number [facility] [address] [place] [address], [place] [phone] * DXA BONE DENSITY STUDY 1+ SITS [...] World Health Organization criteria, [address] should beclassified as having normal bone [...] fracture risk by FRAX. Cleveland Parikh MD IMBhavana DXA PROCEDURES Final Resul t from Last 3 Months or Most Recently Relevant to Health Maintenance Insurance [facility] [id number] Advance Directives Documents on File Type Date Recorded Patient Roaster Helper Expl anation Health Care Decision (hx) 05/15/2020 AD MELGOZA DIRECTIVE Health Care Decision (hx) 05/15/2020 AD MELGOZA DIRECTIVE Health Care Decision (hx) 05/15/2020 AD MELGOZA DIRECTIVE Health Care Decision (hx) 05/15/2020 AD MELGOZA DIRECTIVE Health Care Decision (hx) 05/15/2020 AD MELGOZA DIRECTIVE Care Teams Boilermaker Assembly And Erection Relationship Specialty Start Date End Date Ollie Walter MD [address] [place] [address] [address] [place] [address] PCP - General Geriatric Medicine 03/02/25
--- OUTSIDE RECORDS SUMMARY | 2025-05-16 15:59 | XMS_ITS | Encounter Summary ---
Author Organization [facility] Address [address] [place] [address] Care Team Providers Care Value Stream Coach Name Role Phone Ollie Walter MD Primary Care Provider [phone] Encounter Details Date Type Department Care Team (Late Contact Info) Description 02/05/2025 Lab Requisition [facility] - Main Lab [address] [facility] [place] [address] Ollie Walter MD [address] [place], [place] [phone] Thyrotoxicosis, unspecified without thyrotoxic crisis or storm [...] Description 07/17/2025 1:30 PM EST Ancillary Procedure [facility] - [address] [place] [id number] documented as of this encounter Procedures Procedure [...] mmol/L LAB CHEMISTRY METHOD 02/05/2025 1:29 PM [facility] Potassium 3.8 3.5 - 5.5 mmol/L LAB CHEMISTRY METHOD 02/05/2025 1:29 PM [facility] LAB Comment:Hemolysis present Chloride 98 96 - 110 mmol/L LAB CHEMISTRY METHOD 02/05/2025 1:29 PM [facility] CO2 32 21 - 32 mmol/L LAB CHEMISTRY METHOD 02/05/2025 1:29 PM [facility] Anion Gap 11 3 - 11 LAB CHEMISTRY METHOD 02/05/2025 1:29 PM [facility] Glucose 58(L) 70 - 100 mg/dL LAB CHEMISTRY METHOD 02/05/2025 1:29 PM [facility] BUN 11 5 - 25 mg/dL LAB CHEMISTRY METHOD 02/05/2025 1:29 PM [facility] Creatinine 1.10 0.50 - 1.10 mg/dL LAB CHEMISTRY METHOD 02/05/2025 1:29 PM [facility] LAB eGFR 51(L) >=60 mL/min/1. 73m2 LAB CHEMISTRY METHOD 02/05/2025 1:29 PM [facility] Comment:Calculation based on the Chronic Kidney Disease Epidemiology Collaboration (CKD-EPI) equation refit without adjustment for race. BUN/Creatinine Ratio 10.0 LAB CHEMISTRY METHOD 02/05/2025 1:29 PM [facility] Calcium 8.1(L) 8.5 - 10.5 mg/dL LAB CHEMISTRY METHOD 02/05/2025 1:29 PM [facility] AST (SGOT) 19 10 - 42 unit/L LAB CHEMISTRY METHOD 02/05/2025 1:29 PM EDT [facility] Comment:Hemolysis present ALT (SGPT) 15 10 - 60 unit/L LAB CHEMISTRY METHOD 02/05/2025 1:29 PM EDT [facility] Alkaline Phosphatase 58 42 - 121 unit/L LAB CHEMISTRY METHOD 02/05/2025 1:29 PM EDT [facility] Total Protein 4.8(L) 6.0 - 8.0 g/dL LAB CHEMISTRY METHOD 02/05/2025 1:29 PM EDT [facility] Albumin 2.3(L) 3.2 - 5.0 g/dL LAB CHEMISTRY METHOD [facility] Total Bilirubin 0.2 0.0 - 1.4 mg/dL LAB CHEMISTRY METHOD 02/05/2025 1:29 PM EDT [facility] Blood Venous blood specimen / Unknown Venipuncture / Unknown 02/05/2025 5:29 AM EDT 02/05/2025 10:49 AM EDT us Ollie Walter MD LAB BLOOD ORDERABLES Final Resul t [facility] [address] [place] [address], * (ABNORMAL) Complete blood count (02/05/2025 5:29 AM EDT) WBC 8.4 4.8 - 10.8 K/mcL LAB HEMETOLOGY METHOD 02/05/2025 12:20 PM EDT [facility] RBC 4.10 3.80 - 4.80 M/mcL LAB HEMETOLOGY METHOD 02/05/2025 12:20 PM EDT [facility] Hemoglobin 12.1 11.5 - 16.0 g/dL LAB HEMETOLOGY METHOD 02/05/2025 12:20 PM EDT [facility] Hematocrit 39.7 35.0 - 47.0 % LAB HEMETOLOGY METHOD 02/05/2025 12:20 PM EDT [facility] MCV 97.1 79.0 - 98.0 FL LAB HEMETOLOGY METHOD 02/05/2025 12:20 PM EDT [facility] MCH 29.6 27.0 - 32.0 pcg LAB HEMETOLOGY METHOD 02/05/2025 12:20 PM EDT [facility] MCHC 30.5(L) 32.0 - 37.0 g/dL LAB HEMETOLOGY METHOD 02/05/2025 12:20 PM EDT [facility] RDW 12.9 11.0 - 15.0 % LAB HEMETOLOGY METHOD 02/05/2025 12:20 PM EDT [facility] Platelets 242 130 - 400 K/mcL LAB HEMETOLOGY METHOD 02/05/2025 12:20 PM EDT [facility] MPV 11.6(H) 7.0 - 11.0 FL LAB HEMETOLOGY METHOD 02/05/2025 12:20 PM EDT [facility] NRBC 0.0 <1.0 % LAB HEMETOLOGY METHOD 02/05/2025 12:20 PM EDT [facility] NRBC Absolute 0.00 <0.10 K/mcL LAB HEMETOLOGY METHOD 02/05/2025 12:20 PM EDT [facility] Blood Venous blood specimen / Unknown Venipuncture / Unknown 02/05/2025 5:29 AM EDT 02/05/2025 10:49 AM EDT us Ollie Walter MD LAB BLOOD ORDERABLES Final Resul t [facility] [address] [place] [address], documented in this encounter Visit Diagnoses Diagnosis Thyrotoxicosis, unspecified without thyrotoxic crisis or storm documented in this encounter Care Teams Value Stream Coach Relationship Specialty Start Date End Date Ollie Walter MD [address] [place] [address] [address] [place] [address] PCP - General Geriatric Medicine 03/02/25 documented as of this encounter
--- OUTSIDE RECORDS SUMMARY | 2025-05-16 15:59 | XMS_ITS | Encounter Summary ---
Author Organization [facility] Address [address] [place] [address] Care Team Providers Care College Physics Instructor Name Role Phone Ollie Walter MD Primary Care Provider [phone] Encounter Details Date Type Department Care Team (Late Contact Info) Description 02/09/2025 Lab Requisition [facility] - Main Lab 299 [facility] [place] [address] Ollie Walter MD [address] [place], [place] [id number] Thyrotoxicosis, unspecified without thyrotoxic crisis or storm [...] Description 07/17/2025 1:30 PM EST Ancillary Procedure [facility] - [address] [place] [phone] documented as of this encounter Procedures Procedure [...] mmol/L LAB CHEMISTRY METHOD 02/12/2025 10:54 AM [facility] Potassium 3.9 3.5 - 5.5 mmol/L LAB CHEMISTRY METHOD 02/12/2025 10:54 AM [facility] Chloride 97 96 - 110 mmol/L LAB CHEMISTRY METHOD 02/12/2025 10:54 AM [facility] CO2 36(H) 21 - 32 mmol/L LAB CHEMISTRY METHOD 02/12/2025 10:54 AM [facility] Anion Gap 5 3 - 11 LAB CHEMISTRY METHOD 02/12/2025 10:54 AM [facility] Glucose 70 70 - 100 mg/dL LAB CHEMISTRY METHOD 02/12/2025 10:54 AM [facility] BUN 13 5 - 25 mg/dL LAB CHEMISTRY METHOD 02/12/2025 10:54 AM [facility] Creatinine 0.93 0.50 - 1.10 mg/dL LAB CHEMISTRY METHOD 02/12/2025 10:54 AM [facility] eGFR 63 >=60 mL/min/1. 73m2 LAB CHEMISTRY METHOD 02/12/2025 10:54 AM [facility] Comment:Calculation based on the Chronic Kidney Disease Epidemiology Collaboration (CKD-EPI) equation refit without adjustment for race. BUN/Creatinine Ratio 14.0 LAB CHEMISTRY METHOD 02/12/2025 10:54 AM [facility] Calcium 8.7 8.5 - 10.5 mg/dL LAB CHEMISTRY METHOD 02/12/2025 10:54 AM [facility] Blood Venous blood specimen / Unknown Venipuncture / Unknown 02/12/2025 5:25 AM EDT 02/12/2025 9:51 AM EDT us Ollie Walter MD LAB BLOOD ORDERABLES Final Resul t [facility] [address] [place] [address], * (ABNORMAL) Complete blood count (02/12/2025 5:25 AM EDT) WBC 6.2 4.8 - 10.8 K/mcL LAB HEMETOLOGY METHOD 02/12/2025 10:40 AM EDT [facility] RBC 4.00 3.80 - 4.80 M/mcL LAB HEMETOLOGY METHOD 02/12/2025 10:40 AM EDT [facility] Hemoglobin 11.5 11.5 - 16.0 g/dL LAB HEMETOLOGY METHOD 02/12/2025 10:40 AM EDT [facility] Hematocrit 38.5 35.0 - 47.0 % LAB HEMETOLOGY METHOD 02/12/2025 10:40 AM EDT [facility] MCV 97.2 79.0 - 98.0 FL LAB HEMETOLOGY METHOD 02/12/2025 10:40 AM EDT [facility] MCH 29.0 27.0 - 32.0 pcg LAB HEMETOLOGY METHOD 02/12/2025 10:40 AM EDT [facility] MCHC 29.9(L) 32.0 - 37.0 g/dL LAB HEMETOLOGY METHOD 02/12/2025 10:40 AM EDT [facility] RDW 12.5 11.0 - 15.0 % LAB HEMETOLOGY METHOD 02/12/2025 10:40 AM EDT [facility] Platelets 177 130 - 400 K/mcL LAB HEMETOLOGY METHOD 02/12/2025 10:40 AM EDT [facility] MPV 11.5(H) 7.0 - 11.0 FL LAB HEMETOLOGY METHOD 02/12/2025 10:40 AM EDT [facility] NRBC 0.0 <1.0 % LAB HEMETOLOGY METHOD 02/12/2025 10:40 AM EDT [facility] NRBC Absolute 0.00 <0.10 K/mcL LAB HEMETOLOGY METHOD 02/12/2025 10:40 AM EDT [facility] Blood Venous blood specimen / Unknown Venipuncture / Unknown 02/12/2025 5:25 AM EDT 02/12/2025 9:51 AM EDT us Ollie Walter MD LAB BLOOD ORDERABLES Final Resul t [facility] [address] [place] [address], documented in this encounter Visit Diagnoses Diagnosis Thyrotoxicosis, unspecified without thyrotoxic crisis or storm documented in this encounter Care Teams College Physics Instructor Relationship Specialty Start Date End Date Ollie Walter MD [address] [place] [address] [address] [place] [address] PCP - General Geriatric Medicine 03/02/25 documented as of this encounter
--- OUTSIDE RECORDS SUMMARY | 2025-05-16 15:59 | XMS_ITS | Clinical Summary ---
Author Organization [facility] Address [address] [place] [address] 7[address] [place] [address] Care Team Providers Care Felt Checker Name Role Phone Unavailable Primary Care Provider [...] Maintenance Insurance DENTAL - [facility] [place] [id number]
--- OUTSIDE RECORDS SUMMARY | 2025-05-16 15:59 | XMS_ITS | Data Portability ---
Author Organization [place] [facility], Allergy Address [address] [address] Assessment No assessment recorded. Plan of Treatment Reminders Order Date Submit Date Provider Last Modified By Organization Details Last Modified Time Details Appointments Establish ed 15 2024 10:45A M VERONICA SPARKS MD Not available Not available Not available Lab None recorded. Referral None recorded. Procedures None recorded. Surgeries None recorded. Imaging None recorded. Medication Orders None recorded. Patient TargetsNo targets recorded. Patient InstructionsNo instructions [...] Sensorine ural hearing loss of bilateral ears 020275003 Active 2022 Sensorineu ral hearing loss, bilateral; Note: Date Diagnosed: 05/12/2023 3:19 PM (H90.3) Not Available [facility] 4 03:17:22 Dysphonia 69824113 Active 2022 Hoarseness ; Note: Date Diagnosed: 05/12/2023 3:19 PM (R49.0) Not Available [facility] 4 03:17:23 Actinic keratosis 480782388 Active 2022 Actinic keratosis; Note: Date Diagnosed: 05/12/2023 3:19 PM (L57.0) Not Available [facility] 4 03:17:23 Complete bilateral paralysis of vocal cords 72577736 Active 2023 Paralysis of vocal cords and larynx, bilateral; Note: Date Diagnosed: 08/13/2023 12:03 PM (J38.02) Not Available [facility] 4 03:17:23 Vocal cord paralysis 809333617 Active 2023 VERONICA SPARKS MD [address] [place] [address],[place] [address], [place], [address] , [facility] 4 14:03:24 Problem Notes None recorded. Procedures Surgical History Date Name Laterality Status Provider Name and Address Organization Details Recorded Time 02/07/20 Fiberoptic Laryngoscopy (Comprehensive) completed VERONICA SPARKS MD [address] [place] [address],[place] [address], [place], [address], [facility] 02/11/2024 14:05:01 Imaging Results None recorded. Procedure Notes None recorded. Medical Equipment None Reported. Allergies Allergen ID Allergen Name Allergen Category Reaction Reaction Severity Criticality Documentation Date Start Date Code Code System Note Provider Name and Address Organization Details Recorded Time 774747 watermelo n preparati on food,medi cation other Not available Not available 11/16/2023 52376 4 RxNorm React ion: Unkno wn; Not Available [facility] 4 01:24:25 Medications Name Sig Start Date Stop [...] Relief 50 mcg/actuatio n nasal spray,suspen kay [place] 1 spray every day by intranasal route. [...] Updated DateTime 02/07/2024 170.18 cm 43.9 kg/m2 807707.86 g Ruby Moore [place] - [facility] 02/07/2024 10:51:18 Social History None recorded. Functional Status None recorded. Mental Status None recorded. Family History Nothing Reported. Medical History No medical history recorded. Gynecological HistoryNo gynecological history recorded. Obstetrics History GPAL:G 0 P 0 0 0 0 Past Encounters Encounter ID Performer Location Encounter Start Date Encounter Closed Date Diagnosis/Indication Diagnosis SNOMED-CT Code Diagnosis ICD10 Code Diagnosis IMO Codes Diagnosis Note [id number] VERONICA SPARKS MD [facility] [address] [address] 02/07/2024 10:43:24 02/07/2024 11:08:58 Vocal cord paralysis 432096414 J38.02 78-year-ol d female presents for evaluation [...] Recorded Advance Directives Directive None Recorded Payers Insurance Date Sequence Insurance Name Policy Number Policy Platt Covered Member ID Platt Member ID Guarantor Name 01/07/2025 1 [employer] - DUAL ELIGIBLE - [place] - [facility] (MEDICARE REPLACEMENT/ ADVANTAGE - HMO) [id number] 01/07/2025 1 [facility] [place] (MEDICARE REPLACEMENT/ ADVANTAGE - HMO) [address] [id number] 03/29/2025 2 [place] [facility] [address] [id number] Hannah Lnae Notes Date Note Type Note Provider Name and Address Organization Details Recorded Time 02/07/2024 text/html ROS as noted in the HPI No changes in health since her last visit. Now has CLAIRE. PV: 78-year-old female presents for evaluation of hoarseness. She has history of bilateral vocal cord paralysis following craniotomyback in 2006. Had trach and G tube at that time. Patient continues to have long-standing hoarseness. She denies dysphagia or choking episodes.Denies shortness of breath. VERONICA SPARKS MD [address] [place] [address], [phone], [facility] - [facility] 02/11/2024 14:05:15 OBGyn Episode No OBEpisode recorded.
--- OUTSIDE RECORDS SUMMARY | 2025-05-16 15:59 | XMS_ITS | Encounter Summary ---
Author Organization [facility] Address [address] [place] [address] Care Team Providers Care Patient Services Specialist Name Role Phone Ollie Walter MD Primary Care Provider [phone] Encounter Details Date Type Department Care Team (Late Contact Info) Description 02/23/2025 Lab Requisition [facility] - Main Lab 299 [facility] [place] [address] Ollie Walter MD [address] [place], [place] [phone] Disorder of kidney and ureter, unspecified; Hematuria, [...] Description 07/17/2025 1:30 PM EST Ancillary Procedure [facility] - [address] [place] [address] documented as of this encounter [...] CBC auto differential (02/23/2025 6:16 AM EDT) [facility] WBC 9.0 4.8 - 10.8 K/mcL LAB HEMETOLOGY METHOD 02/23/2025 10:15 AM [facility] RBC 3.90 3.80 - 4.80 M/mcL LAB HEMETOLOGY METHOD 02/23/2025 10:15 AM [facility] Hemoglobin 11.3(L) 11.5 - 16.0 g/dL LAB HEMETOLOGY METHOD 02/23/2025 10:15 AM [facility] Hematocrit 36.3 35.0 - 47.0 % LAB HEMETOLOGY METHOD 02/23/2025 10:15 AM [facility] MCV 93.1 79.0 - 98.0 FL LAB HEMETOLOGY METHOD 02/23/2025 10:15 AM [facility] MCH 29.0 27.0 - 32.0 pcg LAB HEMETOLOGY METHOD 02/23/2025 10:15 AM [facility] MCHC 31.1(L) 32.0 - 37.0 g/dL LAB HEMETOLOGY METHOD 02/23/2025 10:15 AM [facility] RDW 12.6 11.0 - [...] 10:15 AM [facility] NRBC Absolute [...] LAB HEMETOLOGY METHOD 02/23/2025 10:15 AM EDT [facility] Eosinophils Absolute 0.13 0.00 - 0.50 K/[facility] LAB HEMETOLOGY METHOD 02/23/2025 10:15 AM EDT [facility] Basophils Absolute 0.03 0.00 - 0.20 K/[facility] LAB HEMETOLOGY METHOD 02/23/2025 10:15 AM EDT [facility] Immature Granulocytes Absolute 0.10(H) 0.00 - 0.03 K/[facility] LAB HEMETOLOGY METHOD 02/23/2025 10:15 AM EDT [facility] Blood Venous blood specimen / Unknown Venipuncture / Unknown 02/23/2025 6:16 AM EDT 02/23/2025 9:01 AM EDT Ollie Walter MD LAB BLOOD ORDERABLES Final Resul t Performing Organization Address City/[facility]/ZIP Co de Phone Number [facility] [address] [place] [address], [place] [phone] * Triiodothyronine total (02/23/2025 6:16 AM EDT) Pathologist [facility] T3, Total 75.28 60.00 - 181.00 ng/dL LAB CHEMISTRY METHOD 02/23/2025 11:11 AM EDT [facility] Blood Venous blood specimen / Unknown Venipuncture / Unknown 02/23/2025 6:16 AM EDT 02/23/2025 9:01 AM EDT us Ollie Walter MD LAB BLOOD ORDERABLES Final Resul t [facility] [address] [place] [address], [place] [phone] * Thyroxine free (02/23/2025 6:16 AM EDT) Free T4 1.40 0.70 - 1.80 ng/dL LAB CHEMISTRY METHOD 02/23/2025 11:11 AM EDT [facility] Blood Venous blood specimen / Unknown Venipuncture / Unknown 02/23/2025 6:16 AM EDT 02/23/2025 9:01 AM EDT Ollie Walter MD LAB BLOOD ORDERABLES Final Resul t Performing Organization Address City/[facility]/ZIP Co de Phone Number [facility] [address] [place] [address], [place] [phone] * Thyroid stimulating hormone (02/23/2025 6:16 AM EDT) TSH 0.73 0.40 - 4.00 mcIU/mL LAB CHEMISTRY METHOD 02/23/2025 11:12 AM EDT [facility] Blood Venous blood specimen / Unknown Venipuncture / Unknown 02/23/2025 6:16 AM EDT 02/23/2025 9:01 AM EDT Ollie Walter MD LAB BLOOD ORDERABLES Final Resul t Performing Organization Address [facility] Co de Phone Number [facility] [address] [place] [address], [place] [phone] documented in this encounter Visit Diagnoses Diagnosis Disorder of kidney and ureter, unspecified Hematuria, unspecified documented in this encounter Care Teams Patient Services Specialist Relationship Specialty Start Date End Date Ollie Walter MD [address] [place] [address] [address] [place] [address] PCP - General Geriatric Medicine 03/02/25 documented as of this encounter
--- OUTSIDE RECORDS SUMMARY | 2025-05-16 15:59 | XMS_ITS | Encounter Summary ---
Author Organization [facility] Address [address] [place] [address] Care Team Providers Care Braille Duplicating Machine Operator Name Role Phone Ollie Walter MD Primary Care Provider [phone] Encounter Details Date Type Department Care Team (Late st Contact Info) Description 02/23/2025 Lab Requisition [facility] - Main Lab 299 [facility] [place] [address] Ollie Walter MD [address] [place], [place] [phone] Urinary tract infection, site not specified Social [...] Description 07/17/2025 1:30 PM EST Ancillary Procedure [facility] - [address] [place] [address] documented as of this encounter [...] reflex microscopic (02/22/2025 10:00 PM EDT) Specific [place] Urine 1.019 1.003 - 1.030 LAB URINALYSIS - AUTOMATED METHOD 02/23/2025 11:[address] [facility] pH, Urine 5.0 5.0 - 8.0 pH LAB URINALYSIS - AUTOMATED METHOD 02/23/2025 11:[address] [facility] Leukocytes, Urine Small(A) Negative LAB URINALYSIS - AUTOMATED METHOD 02/23/2025 11:[address] [facility] Nitrite, Urine Negative Negative LAB URINALYSIS - AUTOMATED METHOD 02/23/2025 11:[address] [facility] Protein, Urine 300(A) <=Trace mg/dL LAB URINALYSIS - AUTOMATED METHOD 02/23/2025 11:[address] [facility] Glucose, Urine Negative Negative mg/dL LAB URINALYSIS - AUTOMATED METHOD 02/23/2025 11:[address] [facility] Ketones, Urine Negative Negative mg/dL LAB URINALYSIS - AUTOMATED METHOD 02/23/2025 11:[address] [facility] Urobilinogen , Urine 0.2 0.2 - 1.0 mg/dL LAB URINALYSIS - AUTOMATED METHOD 02/23/2025 11:[address] [facility] Bilirubin, Urine Small(A) Negative LAB URINALYSIS - AUTOMATED METHOD 02/23/2025 11:[address] [facility] Blood, Urine Large(A) Negative LAB URINALYSIS - AUTOMATED METHOD 02/23/2025 11:[address] [facility] RBC, Urine >4,000(H) 0 - 4 /HPF LAB URINALYSIS - AUTOMATED METHOD 02/23/2025 11:02 AM EDT [facility] WBC, Urine 17.2(H) 0 - 4 /HPF LAB URINALYSIS - AUTOMATED METHOD 02/23/2025 11:02 AM EDT [facility] Squamous Epithelial, Urine 20 0 - 60 /LPF LAB URINALYSIS - AUTOMATED METHOD 02/23/2025 11:02 AM EDT [facility] Bacteria, Urine Few(A) Negative /HPF LAB URINALYSIS - AUTOMATED METHOD 02/23/2025 11:02 AM EDT [facility] Hyaline Casts, Urine 3.2(H) 0 - 3 /LPF LAB URINALYSIS - AUTOMATED METHOD 02/23/2025 11:02 AM EDT [facility] Urine Urine specimen from urethra / Unknown 02/22/2025 10:00 PM EDT 02/23/2025 9:32 AM EDT us Ollie Walter MD LAB URINE ORDERABLES Final Resul t Performing Organization Address City/[facility]/ZIP Co de Phone Number [facility] [address] [place] [address], [place] [phone] * Culture urine (02/22/2025 10:00 PM EDT) Culture, Urine No growth 02/24/2025 9:18 AM EDT [facility] Urine Urine specimen from urethra / Unknown 02/22/2025 10:00 PM EDT 02/23/2025 9:32 AM EDT us Ollie Walter MD LAB MICROBIOLOGY - GENERAL ORDER [place] Final Result Performing Organization Address City/[facility]/ZIP Co de Phone Number [facility] [address] [place] [address], [place] [phone] documented in this encounter Visit Diagnoses Diagnosis Urinary tract infection, site not specified documented in this encounter Care Teams Braille Duplicating Machine Operator Relationship Specialty Start Date End Date Ollie Walter MD [address] [place] [address] [address] [place] [address] PCP - General Geriatric Medicine 03/02/25 documented as of this encounter
--- OUTSIDE RECORDS SUMMARY | 2025-05-16 15:59 | XMS_ITS | Encounter Summary ---
Author Organization [facility] Address [address] [place] [address] Care Team Providers Care Automotive Alignment Specialist Name Role Phone Ollie Walter MD Primary Care Provider Encounter Details Date Type Department Care Team (Late Contact Info) Description 02/18/2025 Lab Requisition [facility] - Main Lab 299 [facility] [place] [address] Ollie Walter MD [address] [place], [place] [phone] Thyrotoxicosis, unspecified without thyrotoxic crisis or storm [...] Description 07/17/2025 1:30 PM EST Ancillary Procedure [facility] - [address] [place] [address] documented as of this encounter Procedures Procedure [...] mmol/L LAB CHEMISTRY METHOD 02/19/2025 11:55 AM [facility] Potassium 3.8 3.5 - 5.5 mmol/L LAB CHEMISTRY METHOD 02/19/2025 11:55 AM [facility] Chloride 98 96 - 110 mmol/L LAB CHEMISTRY METHOD 02/19/2025 11:55 AM [facility] CO2 37(H) 21 - 32 mmol/L LAB CHEMISTRY METHOD 02/19/2025 11:55 AM [facility] Anion Gap 7 3 - 11 LAB CHEMISTRY METHOD 02/19/2025 11:55 AM [facility] Glucose 68(L) 70 - 100 mg/dL LAB CHEMISTRY METHOD 02/19/2025 11:55 AM [facility] BUN 14 5 - 25 mg/dL LAB CHEMISTRY METHOD 02/19/2025 11:55 AM [facility] Creatinine 0.96 0.50 - 1.10 mg/dL LAB CHEMISTRY METHOD 02/19/2025 11:55 AM [facility] eGFR 60 >=60 mL/min/1. 73m2 LAB CHEMISTRY METHOD 02/19/2025 11:55 AM [facility] Comment:Calculation based on the Chronic Kidney Disease Epidemiology Collaboration (CKD-EPI) equation refit without adjustment for race. BUN/Creatinine Ratio 14.6 LAB CHEMISTRY METHOD 02/19/2025 11:55 AM [facility] Calcium 8.7 8.5 - 10.5 mg/dL LAB CHEMISTRY METHOD 02/19/2025 11:55 AM [facility] Blood Venous blood specimen / Unknown Venipuncture / Unknown 02/19/2025 5:29 AM EDT 02/19/2025 9:58 AM EDT Ollie Walter MD LAB BLOOD ORDERABLES Final Resul t [facility] [address] [place] [address], * (ABNORMAL) Complete blood count (02/19/2025 5:29 AM EDT) [facility] WBC 8.6 4.8 - 10.8 K/mcL LAB HEMETOLOGY METHOD 02/19/2025 11:51 AM EDT [facility] RBC 4.00 3.80 - 4.80 M/mcL LAB HEMETOLOGY METHOD 02/19/2025 11:51 AM EDT [facility] Hemoglobin 11.7 11.5 - 16.0 g/dL LAB HEMETOLOGY METHOD 02/19/2025 11:51 AM EDT [facility] Hematocrit 39.0 35.0 - 47.0 % LAB HEMETOLOGY METHOD 02/19/2025 11:51 AM EDT [facility] MCV 96.5 79.0 - 98.0 FL LAB HEMETOLOGY METHOD 02/19/2025 11:51 AM EDT [facility] MCH 29.0 27.0 - 32.0 pcg LAB HEMETOLOGY METHOD 02/19/2025 11:51 AM EDT [facility] MCHC 30.0(L) 32.0 - 37.0 g/dL LAB HEMETOLOGY METHOD 02/19/2025 11:51 AM EDT [facility] RDW 12.7 11.0 - 15.0 % LAB HEMETOLOGY METHOD 02/19/2025 11:51 AM EDT [facility] Platelets 205 130 - 400 K/mcL LAB HEMETOLOGY METHOD 02/19/2025 11:51 AM EDT [facility] MPV 12.2(H) 7.0 - 11.0 FL LAB HEMETOLOGY METHOD 02/19/2025 11:51 AM EDT [facility] NRBC 0.0 <1.0 % [facility] METHOD 02/19/2025 11:51 AM EDT [facility] NRBC Absolute 0.00 <0.10 K/mcL LAB HEMETOLOGY METHOD 02/19/2025 11:51 AM EDT [facility] Blood Venous blood specimen / Unknown Venipuncture / Unknown 02/19/2025 5:29 AM EDT 02/19/2025 9:58 AM EDT us Ollie Walter MD LAB BLOOD ORDERABLES Final Resul t [facility] [address] [place] [address], documented in this encounter Visit Diagnoses Diagnosis Thyrotoxicosis, unspecified without thyrotoxic crisis or storm documented in this encounter Care Teams Automotive Alignment Specialist Relationship Specialty Start Date End Date Ollie Walter MD [address] [place], [place] [id number] [place] [address] PCP - General Geriatric Medicine 03/02/25 documented as of this encounter
[2025-05-17 10:50] VITALS: BMI 36.1
--- NOTE | ~2025-05-21 | FL_ITS ---
EXAMINATION: FLUOROSCOPY GUIDANCE FOR NEEDLE PLACEMENT CLINICAL INFORMATION: bilateral c2 c3 c4 cervical facet injection COMPARISON: None. TECHNIQUE: Fluoroscopy guidance was provided to referring physician during cervical bilateral facet joint injections. FINDINGS: Several images of anterior cervical spine were obtained revealing contrast opacifying bilateral facet joint injections. FLUOROSCOPY TIME: 57 seconds DOSE AREA PRODUCT: 217 uGy-m2 (microgray-meter squared) FL/FL guidance in OR IMPRESSION: Fluoroscopy guidance was provided to referring physician for bilateral anterior facet joint injections. Electronically signed by: Zach Sahu MD 05/21/2025 03:48 PM EST
[2025-05-21 06:42] VITALS: BMI 36.7
[2025-05-21] MEDS: Lactated Ringers 1,000 ML 100 ML IVCONT (06:53)
[2025-05-21 07:24] VITALS: BP 175/81; PULSE 62; RESP 18; TEMP 36.6; O2SAT 94
--- NOTE | 2025-05-21 07:37 | MHC.SHP ---
Pre-Procedural Eval Section A - 24 Hr Update-Section A only Date of Service: 05/21/25 The patient is an INPATIENT: No Changes since office visit: Yes Patient answered all questions The patient has been examined within 24 hours of the surgical procedure. The History & Physical has been completed within 30 days and I have reviewed it.: Yes Section B - Complete if H&P > 30 days Chief Complaint: Cervicalgia Allergies: Allergies Allergy/AdvReac Type Severity Reaction Status Date / Time No Known Allergies Allergy Verified 04/09/25 09:48 Plan I have reviewed the history and physical and performed a pertinent physical examination on my patient. No changes have occurred unless specified. Time Spent With Patient Time: Total time managing care of this patient today ____ minutes.
--- NOTE | 2025-05-21 07:40 | W.PM.OPN ---
Operative Note Operative Note Date of Service: 05/21/25 Narrative: Procedure performed: Right C2-C3, C3-C4, C5-C6 and left C2-C3, C3-C4 and C4-C5 facet injections Preop diagnosis: Cervical facet arthropathy Postop diagnosis: The same Anesthesia: MAC After informed consent was obtained, patient was brought into the procedure room and placed in the prone position on the procedure table. Skin over posterior aspect of the neck was prepped and draped in usual sterile manner. The facet joints indicated above were visualized utilizing fluoroscopy. For each joint 3.5 in 22 gauge spinal needle was introduced percutaneously and advanced to enter the joint cavity. Needle placement was verified utilizing 0.2 cc of Omnipaque contrast solution. Each joint received 1 cc of therapeutic solution containing 20 mg of triamcinolone and 0.5% Marcaine. Radiation exposure was reported and documented in the chart.
[2025-05-21 08:25] VITALS: BP 178/89; PULSE 60; RESP 15; TEMP 37.2; O2SAT 97
[2025-05-21 08:42] VITALS: BP 188/80; PULSE 61; RESP 16; TEMP 37.2; O2SAT 95
== END 2025-05-21 09:20 | disposition home or self-care (01) ==
PROVIDERS: Visit Provider Physical Medicine & Rehabilitation
PROC: (CPT 64490; principal; 2025-05-21 07:30)
DX: M47.812 Spondylosis without myelopathy or radiculopathy, cervical region (principal); G89.29 Other chronic pain; M54.2 Cervicalgia; M43.6 Torticollis; I10 Essential (primary) hypertension; K58.9 Irritable bowel syndrome, unspecified; J43.9 Emphysema, unspecified; Z79.899 Other long term (current) drug therapy; Z87.891 Personal history of nicotine dependence
CPT/HCPCS: 64490; 64491; 64492; J0665; J1010; J1100; J2003; J2250; J2704; J3010; J3301; Q9965; Q9967

== ENCOUNTER → 2025-05-21 06:24 | Outpatient (BNV) | payer OTHER, SELFPAY | PROVIDERS: Visit Provider Physical Medicine & Rehabilitation | DX: M47.812 Spondylosis without myelopathy or radiculopathy, cervical region (principal) | CPT/HCPCS: 64490; 64491; 64492 ==

== ENCOUNTER 2025-06-07 13:35 | Outpatient (AMB) | payer OTHER, SELFPAY ==
[2025-06-07 13:37] VITALS: BMI 35.5; BMI 36.5
--- NOTE | 2025-06-07 13:37 | A.PHYSOV ---
Vital Signs 06/07/25 13:37 06/07/25 13:37 Height 5 ft 5 ft Weight 182 lb 187 lb BMI 35.5 36.5 Intake Visit Reasons: F/U after injection 05/21/2025 Intake Note: Patient is a 79 year old patient in office today for a follow up after Bilateral C2-C3, C3-C4, C5-X6tzcmr injections 05/21/25. Allergies No Known Allergies Allergy (Verified 06/07/25 13:46) HPI Comments Details: History of Present Illness The patient is a 79 year old female presenting for a follow-up visit after receiving injections for neck pain. Patient underwent left C2-3, C3-4, C4-5 facet, right C2-3, C4-5, C5-6 facet injection with 80% reduction of her pain. She received injections for cervical arthritis, which have resulted in significant improvement in her neck pain and ability to turn her neck. Post-procedure, she has been applying ice packs to her neck for inflammation, although she has not had significant pain. Associated symptoms prior to this visit included numbness in her hands when lying down and one episode of dizziness, both of which have resolved. Her medical history is also notable for a bulging disc in her neck. Pain Description - Location: The patient had neck and head pain, which was treated with injections. - Current Status: The patient reports feeling better with improved ability to turn her neck. - Relieving Factors: She has experienced relief from injections and has been using ice packs post-procedure. - Associated Symptoms: She previously had numbness in her hands and an episode of dizziness, which have since resolved. 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 Mother No problems noted. Social History Household Members: Other Housing: Assisted Living Facility Are you a primary tree care foreman to a significant other at home: No Do you presently have visiting nurse or other home services: No Alcohol intake: former Comment: Heavy drinker in the past- hasn't had a drink since 2009 Patient Tobacco Use Status: Former Tobacco user Years Smoked: Quit in 2009 after 10 years of smoking Review of Systems Narrative Review of Systems - Neurological: Reports history of hand numbness and a single episode of dizziness, both of which are now resolved. - Musculoskeletal: Reports improved neck mobility and denies current neck pain. - Constitutional: Denies pain. - Integumentary/Extremities: Reports an unspecified issue with her feet, which she states look terrible. Physical Exam Exam Exam: Physical Exam Cervical Spine she is less tender throughout the cervical paraspinal musculature. She has improved range of motion. Axial Compression test: Negative Spurlings test: Negative Cervical Spine Lhermitte's sign: Negative Upper Extremities full range of motion bilateral upper extremities. Equal panel saw operator strength bilaterally. Upper Extremities Sensation: Numbness reported in hands when lying down Strength C5 (Elbow Flexion): 5/5 on the left and 5/5 on the right. C6 (Elbow Extension): 5/5 on the left and 5/5 on the right. C7 (Elbow Extension): 5/5 on the left and 5/5 on the right. C8 (Finger Flexion): 5/5 on the left and 5/5 on the right. T1 (Finger Abduction/Adduction): 5/5 on the left and 5/5 on the right. Deep tendon reflexes C5 (Biceps): Left 2+ Right 2+ C6 (Brachioradialis): Left 2+ Right 2+ C7 (Triceps): Left 2+ Right 2+ Stinson sign: Negative No pathologic clonus. No involuntary movement. Vital Signs: BMI result Body Mass Index 36.5 Assessment & Plan Assessment & Plan (1) Neck pain: Code(s): M54.2 - Cervicalgia Category: Medical (2) Cervical spondylosis: Code(s): M47.812 - Spondylosis without myelopathy or radiculopathy, cervical region Category: Medical Plan Pain Management - Affect: The patient expressed that she is happy with the pain relief. - Analgesia: The patient received injections into the area of her cervical arthritis for inflammation, resulting in significant pain relief. - Adverse Effects: The patient reports a history of hand numbness and a single episode of dizziness, which have both resolved. - Activities of Daily Living: The patient reports she can turn her neck better. - Aberrant Drug Related Behaviors: No aberrant drug-related behaviors were discussed. Plan Patient was informed and verbally consented to the use of an ambient scribe for clinic note documentation during this visit. 1. Cervicalgia With Cervical Arthritis The patient has had a positive response to injections for cervical arthritis, with significant improvement in neck pain and mobility. The therapeutic effects are expected to last for three to six months. She was advised to continue using ice as needed for inflammation or pain but that it is not necessary if she is asymptomatic. She will follow up on an as-needed basis, calling the office to schedule a repeat injection if her pain returns. 2. Paresthesia Of Hands And Dizziness The patient's transient symptoms of hand numbness and a single episode of dizziness have resolved. These symptoms are not believed to be related to the treated arthritis or the injections but may be associated with her other underlying conditions, such as a bulging disc. She was reassured that these symptoms should continue to improve with time and was instructed to inform the office if they recur. 3. Foot Complaint The patient voiced a concern about the appearance of her feet. It was explained that this issue is unrelated to her neck condition. A referral to a collator operator was recommended for further evaluation and management. Discussion Notes I discussed with the patient that her recent injections for neck arthritis have effectively reduced inflammation, leading to her current improvement. I explained that the benefit from these injections typically lasts about three to six months, after which her pain may return. I advised her to call our office if the pain comes back, and we can then arrange for repeat injections. I clarified that a scheduled follow-up is not necessary and to wait until she becomes symptomatic. Regarding the past symptoms of hand numbness and dizziness, I reassured her that they are likely unrelated to the arthritis we treated and should continue to resolve. When she brought up concerns about her feet, I explained that this was a separate issue from her neck and recommended she see a collator operator for evaluation. Patient Instructions - The injection you received is working well to relieve your neck pain. - This relief may last for three to six months. - You can use an ice pack on your neck if you feel pain, but you do not have to if you are feeling well. - Do not schedule a follow-up appointment now. Instead, wait until your neck pain returns. - If your pain comes back, please call our office to discuss getting the injection again. - The past numbness in your hands and dizziness should get better over time. Let us know if they do not. - For concerns about your feet, you should see a foot doctor (collator operator). Coding Level of Care Code Tele Est Pt Level 3 (16737) Diagnoses Neck pain M54.2 Cervical spondylosis M47.812
== END 2025-06-07 14:03 | disposition home or self-care (01) ==
LOC: HO.HPHYS 13:35
PROVIDERS: PCP Internal Medicine; Visit Provider Physician Assistant
DX: M54.2 Cervicalgia (principal); M47.812 Spondylosis without myelopathy or radiculopathy, cervical region
CPT/HCPCS: 99213